=== PATIENT | male | born 1950 | race Caucasian/White ===

== ENCOUNTER → 2017-01-15 | Outpatient (CLI) | payer MEDICARE, OTHER | END | disposition home or self-care (01) | LOC: LABPAT 14:25 | PROVIDERS: ATTEND Orthopaedic Surgery | DX: Z01.812 Encounter for preprocedural laboratory examination (principal) | CPT/HCPCS: 87070 ==

== ENCOUNTER → 2018-11-03 | Outpatient (CLI) | payer MEDICARE, OTHER ==
[2018-11-03 13:20] LABS: Basophils % (A) 1 %; Eosinophils # (A) 0.3 k/uL (0-0.7); Eosinophils % (A) 6 %; HCT 43.5 % (39.0-53.0); HGB 14.3 gm/dL (13.0-17.5); Lymphocytes # (A) 0.8 k/uL (1.0-4.8); Lymphocytes % (A) 17 %; MCH 31.4 pg (25.0-35.0); MCHC 32.9 g/dL (31.0-37.0); MCV 95.5 fL (80.0-100.0); Mean Platelet Volume 7.9; Monocytes # (A) 0.4 k/uL (0-1.0); Monocytes % (A) 8 %; Neutrophils % (A) 66 %; Platelet Count 139 k/uL (150-450); RBC 4.55 m/uL (4.30-5.90); RDW 13.6 % (11.5-15.5); WBC 4.5 k/uL (3.8-10.6)
[2018-11-03 20:17] LABS: Albumin 4.7 g/dL (3.80-4.90); Albumin/Globulin Ratio 2.24 (1.60-3.17); Anion Gap 10.5 mmol/L (4.00-12.00); Calcium 9.8 mg/dL (8.7-10.3); Carbon Dioxide 29.5 mmol/L (21.6-31.8); Globulin 2.1 g/dL (1.6-3.3); Potassium 4.1 mmol/L (3.5-5.5); Total Bilirubin 0.6 mg/dL (0.2-1.2); Total Protein 6.8 g/dL (6.2-8.2)
== END | disposition home or self-care (01) ==
LOC: LABWHC1 12:21
PROVIDERS: ATTEND Radiology Radiation Oncology
DX: C61 Malignant neoplasm of prostate (principal); D63.0 Anemia in neoplastic disease; R53.82 Chronic fatigue, unspecified
CPT/HCPCS: 36415; 80053; 84153; 84403; 85025

== ENCOUNTER 2021-11-14 10:04 | Day surgery (SDC) | payer MEDICARE, OTHER ==
[2021-11-12 14:41] VITALS: BMI 32.3
[~2021-11-14 10:04] MED LIST: DEXAMETHASONE SOD PHOSPHATE 4 MG/ML 1 ML VIAL IV ONE; HYDROmorphone 1 MG/ML 1 ML SYRINGE IVP PRN; LACTATED RINGERS 1,000 ML IV SCH; ONDANSETRON 4 MG/2 ML VIAL IVP ONE
[2021-11-14 11:04] LABS: Glucose,Whole Blood 111 mg/dL (75-99)
--- NOTE | 2021-11-14 12:26 | XR ---
EXAMINATION TYPE: XR KUB DATE OF EXAM: 11/14/2021 COMPARISON: None available INDICATION: Preoperative TECHNIQUE: Standard 2 views of the abdomen FINDINGS: Suspected 12 mm right renal calculus. No obvious cleft radiopaque renal calculus. Renal shadows are o bscured by the overlying bowel gas and fecal material. Arterial atherosclerotic calcifications. Degen erative changes of the lumbar spine. IMPRESSION: As above.
--- NOTE | 2021-11-14 12:44 | P.HPIHPCON ---
History of Present Illness H&P Date: 11/14/21 Chief Complaint: right renal stone this is a 71-year-old male with history of a 1.2 cm right-sided UPJ stone. He is symptomatic from his stone. Discussed with him the option of a right-sided ureteroscopy with holmium laser. Discussed the alternative of ESWL. Discussed the risk and benefit of each procedure. He agreed to proceed with right-sided ureteroscopy. Discussed the risk which includes but not limited to bleeding, infection, injury to ureter, potential of needing additional operations. He understood all the risk and agreed to proceed Consent for Procedure: I have explained the operation/procedure to the patient, including the risks, benefits, side effects, alternative therapies (including not receiving the proposed treatment or service), the likelihood of the patient achieving his/her goals, and potential recuperation problems for the procedure/sedation/analgesia, as well as any blood products, if indicated. I also explained to the patient the risks, benefits and side effects of the alternatives, as well as the risks rel ated to not receiving the proposed procedure, care, treatment, or services. Past Medical History Past Medical History: Atrial Fibrillation, Cancer, Chest Pain / Angina, Diabetes Mellitus, Hyperlipidemia, Hypertension, Osteoarthritis (OA), Prostate Disorder Additional Past Medical History / Comment(s): kidney stones,bone spur right hip History of Any Multi-Drug Resistant Organisms: None Reported Past Surgical History: Orthopedic Surgery, Tonsillectomy Additional Past Surgical History / Comment(s): Carpal Tunnel Release, RT KNEE ARTHROSOCPY Past Anesthesia/Blood Transfusion Reactions: No Reported Reaction Additional Past Anesthesia/Blood Transfusion Reaction / Comment(s): no hx blood transfusion Smoking Status: Former smoker - Past Family History Mother Family Medical History: AFIB Additional Family Medical History / Comment(s): states that his mother from "gangrene of the stomach" Father Family Medical History: AICD/Pacemaker, Myocardial Infarction ([place]) Additional Family Medical History / Comment(s): pacer Brother(s) Family Medical History: AFIB Sister(s) Family Medical History: AFIB Medications and Allergies Home Medications Medication Instructions Recorded Confirmed Type Lovastatin [Mevacor] 40 mg PO HS 12/15/14 11/14/21 History lisinopriL [Prinivil] 30 mg PO QAM 12/15/14 11/14/21 History metFORMIN HCL [Glucophage] 500 mg PO BID 12/15/14 11/14/21 History Aspirin 81 mg PO DAILY 12/16/14 11/14/21 History Acetaminophen [Tylenol Extra 500 - 1,000 mg PO Q6H PRN 11/12/21 11/14/21 History Strength] Finasteride [Proscar] 5 mg PO QAM 11/12/21 11/14/21 History Metoprolol Tartrate [Lopressor] 25 mg PO BID 11/12/21 11/14/21 History Oxybutynin ER [Ditropan Xl] 10 mg PO HS 11/12/21 11/14/21 History Rivaroxaban [Xarelto] 20 mg PO DAILY 11/12/21 11/14/21 History Tamsulosin HCl [Flomax] 0.4 mg PO BID 11/12/21 11/14/21 History amLODIPine BESYLATE 5 mg PO QAM 11/12/21 11/14/21 History Allergies Allergy/AdvReac Type Severity Reaction Status Date / Time amoxicillin Allergy Unknown Verified 11/14/21 11:11 Childhood Surgical - Exam Vital Signs Temp Pulse Resp BP Pulse Ox 97.7 F 96 18 149/104 97 11/14/21 10:51 11/14/21 10:51 11/14/21 10:51 11/14/21 10:51 11/14/21 10:51 - General well nourished, no distress, moderate pain - Eyes normal ocular movement, no pale - Respiratory normal expansion, normal respiratory effort - Abdomen Abdomen: soft, non tender - Psychiatric oriented to time, oriented to person, oriented to place Results - Labs Abnormal Lab Results - Last 24 Hours (Table) 11/14/21 Range/Units 11:01 POC Glucose (mg/dL) 111 H (75-99) mg/dL Assessment and Plan Assessment: 71-year-old male with history of right-sided ureteral stone -OR for right-sided ureteroscopy, holmium laser lithotripsy, stone basketing and stent insertion
[2021-11-14] MEDS ORDERED: fentaNYL (PF) 50 MCG/ML 2 ML AMP ONE (13:45)
[2021-11-14] MEDS ORDERED: NEOSTIGMINE 1 MG/ML 10 ML VIAL ONE (13:45)
[2021-11-14] MEDS ORDERED: GLYCOPYRROLATE 0.2 MG/ML 2 ML VIAL ONE (13:45)
[2021-11-14] MEDS ORDERED: SUCCINYLCHOLINE CHLORIDE 100 MG/5 ML SYR IV ONE (13:45)
[2021-11-14] MEDS ORDERED: ROCURONIUM 10 MG/ML (5 ML VIAL) IV ONE (13:45)
[2021-11-14] MEDS ORDERED: LIDOCAINE 1% INJ 10MG/ML (20 ML MDV) ONE (13:45)
[2021-11-14] MEDS ORDERED: PROPOFOL 10 MG/ML 20 ML VIAL IV ONE (13:45)
[2021-11-14] MEDS ORDERED: MIDAZOLAM 2 MG/2 ML VIAL ONE (13:45)
[2021-11-14] MEDS ORDERED: IOPAMIDOL-370 50ML BTL IRRIGATION ONE (14:32)
--- NOTE | 2021-11-14 14:53 | P.OP ---
Date of Procedure: 11/14/21 Preoperative Diagnosis: Right ureteral stone Postoperative Diagnosis: Same Procedure(s) Performed: Cystoscopy, right ureteroscopy, ureteral balloon dilation and stent placement, Implants: 6-[place] Citizen by 26 cm stent Anesthesia: JOHNNY Surgeon: Vadim Peres Estimated Blood Loss (ml): 5 Pathology: none sent Condition: stable Disposition: PACU Indications for Procedure: this is a 71-year-old male with history of a 1.2 cm right-sided UPJ stone. He is symptomatic from his stone. Discussed with him the option of a right-sided ureteroscopy with holmium laser. Discussed the alternative of ESWL. Discussed the risk and benefit of each procedure. He agreed to proceed with right-sided ureteroscopy. Discussed the risk which includes but not limited to bleeding, infection, injury to ureter, potential of needing additional operations. He understood all the risk and agreed to proceed Operative Findings: Significant narrowing of the right proximal ureter Description of Procedure: Patient was brought to the operating room, general anesthesia was induced. He was prepped and draped in sterile fashion and placed in dorsal lithotomy position. Cystoscopy fitted with a 21-[place] Citizen sheath was inserted per urethra, cystoscopy was performed which showed no abnormality within the bladder. Attention was then carried to the right ureteral orifice which was intubated with a sensor wire. The wire was advanced into the kidney. Next the cystoscope was withdrawn with the wire in place. Next a 1113 [place] Citizen access sheath was passed over the wire and into the mid ureter, resistance was met at that level, thus the access sheath was not advanced any further. Next a flexible ureteroscope was inserted through the access sheath, at this point I encountered a stricture at the proximal ureter. The scope was withdrawn and a wire was advanced through. Next a ureteral balloon dilator was passed through the access sheath and the stricture was dilated. At this time I reinserted the scope and I advanced the scope past the stricture but a second stricture was encountered. I then removed the scope and readvanced the balloon dilator and dilated the second stricture. At this time the ureteroscope was reinserted and I was able to advance the scope past the second stricture but it appeared to be significant narrowing at the UPJ. Of note there appeared to be some mucosal tearing with dilation, but no evidence of ureteral perforation. Given this finding the decision was made at this time to place a stent. A ureteroscope was withdrawn and pullback ureteroscopy was performed showed no injury to the ureter. Next a ureteral stent was passed over the wire, the proximal curl was visualized on fluoroscopy and the distal curl was visualized using cystoscope. The bladder was emptied at the end of the case. The patient tolerated the procedure well taken to recovery in stable condition, he'll be scheduled for a ureteroscopy in 3-4 weeks
[2021-11-14 15:06] VITALS: TEMP 98.1
--- NOTE | 2021-11-14 15:37 | FL ---
Fluoroscopy HISTORY: Right ureteral calculus 20 seconds fluoroscopy time supplied to the referring clinician. 7 intraoperative C-arm images docum ent the procedure. See dictated report from urology.
[2021-11-14 16:04] VITALS: RESP 20
[2021-11-14 16:10] VITALS: BP 136/83; PULSE 92
== END 2021-11-14 16:32 | disposition home or self-care (01) ==
LOC: OR 10:04
PROVIDERS: ATTEND Urology
DX: N20.1 Calculus of ureter (principal)
CPT/HCPCS: 52332; 74018; C2625; C1769; J2250; J1100; J2710; J0690; J2405; J2001; J3010; J0330; J2704; Q9967

== ENCOUNTER → 2021-12-09 | Day surgery (SDC) | payer MEDICARE, OTHER ==
--- NOTE | 2021-12-02 12:53 | P.HPIHPCON ---
History of Present Illness H&P Date: 12/02/21 This is a 71-year-old male with history of a 1.2 cm right-sided renal stone. He underwent right-sided stent placement on November 14, at that time patient had a narrowed proximal ureter, and a stent was placed. Definitive stone management were discussed with him, option of ureteroscopy with holmium laser lithotripsy versus ESWL was discussed in detail. Risk and benefits and rationale of each approach were discussed. He agreed to proceed with right-sided ESWL. Discussed the risk which includes but not limited to bleeding, infection, renal hematoma, potential of needing additional operation. Discussed with him that the stent will stay in place at the time of surgery and we'll plan on removing in 1-2 weeks if no fragments are seen on KUB. Consent for Procedure: I have explained the operation/procedure to the patient, including the risks, benefits, side effects, alternative therapies (including not receiving the proposed treatment or service), the likelihood of the patient achieving his/her goals, and potential recuperation problems for the procedure/sedation/analgesia, as well as any blood products, if indicated. I also explained to the patient the risks, benefits and side effects of the alternatives, as well as the risks related to not receiving the proposed procedure, care, treatment, or services. Past Medical History Past Medical History: Atrial Fibrillation, Cancer, Chest Pain / Angina, Diabetes Mellitus, Hyperlipidemia, Hypertension, Osteoarthritis (OA), Prostate Disorder Additional Past Medical History / Comment(s): kidney stones,bone spur right hip History of Any Multi-Drug Resistant Organisms: None Reported Past Surgical History: Orthopedic Surgery, Tonsillectomy Additional Past Surgical History / Comment(s): Carpal Tunnel Release, RT KNEE ARTHROSOCPY Past Anesthesia/Blood Transfusion Reactions: No Reported Reaction Additional Past Anesthesia/Blood Transfusion Reaction / Comment(s): no hx blood transfusion Smoking Status: Former smoker - Past Family History Mother Family Medical History: AFIB Additional Family Medical History / Comment(s): states that his mother from "gangrene of the stomach" Father Family Medical History: AICD/Pacemaker, Myocardial Infarction ([place]) Additional Family Medical History / Comment(s): pacer Brother(s) Family Medical History: AFIB Sister(s) Family Medical History: AFIB Medications and Allergies Home Medications Medication Instructions Recorded Confirmed Type Lovastatin [Mevacor] 40 mg PO HS 12/15/14 11/14/21 History lisinopriL [Prinivil] 30 mg PO QAM 12/15/14 11/14/21 History metFORMIN HCL [Glucophage] 500 mg PO BID 12/15/14 11/14/21 History Aspirin 81 mg PO DAILY 12/16/14 11/14/21 History Acetaminophen [Tylenol Extra 500 - 1,000 mg PO Q6H PRN 11/12/21 11/14/21 History Strength] Finasteride [Proscar] 5 mg PO QAM 11/12/21 11/14/21 History Metoprolol Tartrate [Lopressor] 25 mg PO BID 11/12/21 11/14/21 History Oxybutynin ER [Ditropan Xl] 10 mg PO HS 11/12/21 11/14/21 History Rivaroxaban [Xarelto] 20 mg PO DAILY 11/12/21 11/14/21 History Tamsulosin HCl [Flomax] 0.4 mg PO BID 11/12/21 11/14/21 History amLODIPine BESYLATE 5 mg PO QAM 11/12/21 11/14/21 History Phenazopyridine HCl [Pyridium] 100 mg PO TID #10 tab 11/14/21 Rx Sulfamethox-Tmp 800-160Mg [Bactrim 1 tab PO Q12HR #6 tab 11/14/21 Rx DS 800-160 mg] Allergies Allergy/AdvReac Type Severity Reaction Status Date / Time amoxicillin Allergy Unknown Verified 11/14/21 11:11 Childhood Surgical - Exam - General no distress, no pain - ENT normal nares, normal mucosa - Respiratory normal expansion, normal respiratory effort - Abdomen Abdomen: soft, non tender Assessment and Plan Assessment: OR for right-sided ESWL
[2021-12-05 11:25] VITALS: BMI 29.5
[~2021-12-09] MED LIST changes: +HYDROmorphone 0.5 MG/0.5 ML SYRINGE IVP PRN; -HYDROmorphone 1 MG/ML 1 ML SYRINGE IVP PRN; +LIDOCAINE 1% (10MG/ML) FOR IV START INTRADERMA PRN; +MIDAZOLAM 2 MG/2 ML VIAL ONE; +PROPOFOL 10 MG/ML 20 ML VIAL IV ONE; +fentaNYL (PF) 50 MCG/ML 2 ML AMP ONE
[2021-12-09 07:24] VITALS: TEMP 97.2
--- NOTE | 2021-12-09 07:34 | XR ---
EXAMINATION TYPE: XR KUB DATE OF EXAM: 12/09/2021 Comparison: 11/14/2021 Clinical History: 71-year-old male preop right-sided lithotripsy, stones Findings: A right ureteral stent is in place. There is a 1.2 x 0.5 cm calcification projecting at the lower óscar e right kidney, probably corresponding to the previous calcification seen on 11/14/2021 but now more i nferiorly positioned. Brachytherapy seeds within the region of the prostate gland. Vascular and proba lucero vas deferens calcifications in the pelvis. Degenerative changes mid to lower lumbar spine. Nonobs tructive bowel gas pattern. Mild scattered stool. Impression: 1. Right ureteral stent. 2. The previous 1.2 cm right-sided stone may now be located at the lower pole of the kidney.
[2021-12-09 07:39] LABS: Glucose,Whole Blood 137 mg/dL (75-99)
--- NOTE | 2021-12-09 08:21 | P.OP ---
Date of Procedure: 12/09/21 Preoperative Diagnosis: Right renal stone Postoperative Diagnosis: Same Procedure(s) Performed: Extracorporeal shockwave lithotripsy 2500 shocks at energy level IV Anesthesia: MAC Surgeon: Toribio Sahni Pathology: none sent Condition: stable Disposition: PACU Indications for Procedure: Patient is 71. He has a 12 x 10 mm stone that was lodged at the UPJ. A stent was placed and the stone fell into the lower pole calyx. He comes for shockwave lithotripsy Description of Procedure: Patient brought to the operating suite. Given IV sedation on the lithotripsy table. The stone was seen in 2 views of fluoroscopy. 2500 shocks at energy level IV. The stone appears to have broken somewhat but not completely. Patient awake and returned recovery in good condition. The stent will remain in place. He'll be seen in the office in one week with a KUB. Patient awake and returned recovery in good condition tell her procedure well.
[2021-12-09 08:34] VITALS: RESP 16
[2021-12-09 09:13] VITALS: BP 112/68; PULSE 79
== END | disposition home or self-care (01) ==
LOC: ORWHC2ENDO 06:54
PROVIDERS: ATTEND Urology
DX: N20.0 Calculus of kidney (principal); I48.91 Unspecified atrial fibrillation; I20.9 Angina pectoris, unspecified; I10 Essential (primary) hypertension; E11.9 Type 2 diabetes mellitus without complications; E78.5 Hyperlipidemia, unspecified; M19.90 Unspecified osteoarthritis, unspecified site; N42.9 Disorder of prostate, unspecified; Z79.899 Other long term (current) drug therapy; Z79.84 Long term (current) use of oral hypoglycemic drugs; Z79.82 Long term (current) use of aspirin; Z88.0 Allergy status to penicillin; Z98.890 Other specified postprocedural states; Z90.89 Acquired absence of other organs; Z87.891 Personal history of nicotine dependence; Z82.49 Family history of ischemic heart disease and other diseases of the circulatory system
CPT/HCPCS: 74018; 50590; J2250; J3010; J2704

== ENCOUNTER → 2021-12-16 | Outpatient (CLI) | payer MEDICARE, OTHER ==
--- NOTE | 2021-12-16 17:59 | XR ---
EXAMINATION TYPE: XR KUB DATE OF EXAM: 12/16/2021 COMPARISON: X-ray dated 12/09/2021 INDICATION: Right renal stone TECHNIQUE: One supine view of the abdomen FINDINGS: Right-sided double-J ureteric stent. Stable right lower pole renal stone measuring 10 mm. Stable scat tered soft tissue and arterial calcifications in the pelvis. Severe degenerative changes of the lower thoracic and lower lumbar spine. IMPRESSION: As above.
== END | disposition home or self-care (01) ==
LOC: RADXRMAIN 11:06
PROVIDERS: ATTEND Urology
DX: N20.0 Calculus of kidney (principal)
CPT/HCPCS: 74018

== ENCOUNTER → 2022-01-02 | Outpatient (CLI) | payer MEDICARE, OTHER ==
[2022-01-02 17:35] LABS: Basophils # (A) 0.07 X 10*3/uL (0.00-0.10); Basophils % (A) 0.9 %; Eosinophils # (A) 0.34 X 10*3/uL (0.04-0.35); Eosinophils % (A) 4.5 %; HCT 39.3 % (39.6-50.0); HGB 12.3 g/dL (13.0-17.0); Immature Grans, Automated 0.5 %; Lymphocytes # (A) 1.51 X 10*3/uL (0.90-5.00); Lymphocytes % (A) 19.8 %; MCH 29.6 pg (27.0-32.0); MCHC 31.3 g/dL (32.0-37.0); MCV 94.5 fL (80.0-97.0); Mean Platelet Volume 11.2 fL (9.5-12.2); Monocytes # (A) 0.78 X 10*3/uL (0.20-1.00); Monocytes % (A) 10.2 %; NRBC Per 100 WBC 0 /100 WBCS (0.0-0.0); Neutrophils % (A) 64.1 %; Platelet Count 175 X 10*3/uL (140-440); RBC 4.16 X 10*6/uL (4.40-5.60); RDW 13.3 % (11.5-14.5); WBC 7.64 X 10*3/uL (4.50-10.00)
[2022-01-02 19:15] LABS: African American GFR (CKD) 98.5 (60.0-200.0); Anion Gap 11.3 mmol/L (10.00-18.00); BUN/Creat Ratio 12.78 Ratio (12.00-20.00); Blood Urea Nitrogen 11.5 mg/dL (9.0-27.0); Calcium 9.7 mg/dL (8.7-10.3); Carbon Dioxide 27.7 mmol/L (20.0-27.5); Potassium 4.1 mmol/L (3.5-5.5)
[2022-01-02 20:05] LABS: Appearance,Urine Cloudy (Clear); Bilirubin,Urine Negative (Negative); Blood,Urine Large (Negative); Color,Urine Yellow (Yellow); Ketones,Urine Negative (Negative); Nitrite,Urine Negative (Negative); PH, Urine 5.5 (5.0-8.0); Specific Gravity,Urine 1.019 (1.001-1.030); Urobilinogen,Urine 0.2 (0.2,1.0)
[2022-01-02 21:40] LABS: Bacteria,Urine None Seen /HPF (None Seen); Calcium Oxalate Crystals,Urine Present /LPF (None Seen)
== END | disposition home or self-care (01) ==
LOC: LABPAT 11:01
PROVIDERS: ATTEND Urology
DX: Z01.812 Encounter for preprocedural laboratory examination (principal); N20.0 Calculus of kidney
CPT/HCPCS: 36415; 80048; 81001; 85025; 87086

== ENCOUNTER 2022-01-10 09:58 | Day surgery (SDC) | payer MEDICARE, OTHER ==
--- NOTE | 2022-01-06 10:49 | P.HPIHPCON ---
History of Present Illness H&P Date: 01/06/22 This is a 71-year-old male with history of a 1.2 cm right-sided renal stone. Underwent a right-sided ESWL in November, repeat KUB showed persistent stone. Option of right-sided ureteroscopy with holmium laser was discussed with him given the persistent stone following ESWL. Discussed the risk which includes but not limited to bleeding, infection, injury to ureter. Discussed also potential persistence of stone with ureteroscopy. Discussed also risk from anesthesia with him. Consent for Procedure: I have explained the operation/procedure to the patient, including the risks, benefits, side effects, alternative therapies (including not receiving the proposed treatment or service), the likelihood of the patient achieving his/her goals, and potential recuperation problems for the procedure/sedation/analgesia, as well as any blood products, if indicated. I also explained to the patient the risks, benefits and side effects of the alternatives, as well as the risks related to not receiving the proposed procedure, care, treatment, or services. Past Medical History Past Medical History: Atrial Fibrillation, Cancer, Chest Pain / Angina, Diabetes Mellitus, Hyperlipidemia, Hypertension, Osteoarthritis (OA), Prostate Disorder Additional Past Medical History / Comment(s): kidney stones,bone spur right hip History of Any Multi-Drug Resistant Organisms: None Reported Past Surgical History: Orthopedic Surgery, Tonsillectomy Additional Past Surgical History / Comment(s): Carpal Tunnel Release, RT KNEE ARTHROSOCPY Past Anesthesia/Blood Transfusion Reactions: No Reported Reaction Additional Past Anesthesia/Blood Transfusion Reaction / Comment(s): no hx blood transfusion Smoking Status: Former smoker - Past Family History Mother Family Medical History: AFIB Additional Family Medical History / Comment(s): states that his mother from "gangrene of the stomach" Father Family Medical History: AICD/Pacemaker, Myocardial Infarction ([place]) Additional Family Medical History / Comment(s): pacer Brother(s) Family Medical History: AFIB Sister(s) Family Medical History: AFIB Medications and Allergies Home Medications Medication Instructions Recorded Confirmed Type Lovastatin [Mevacor] 40 mg PO HS 12/15/14 12/05/21 History lisinopriL [Prinivil] 30 mg PO Q48H 12/15/14 12/05/21 History metFORMIN HCL [Glucophage] 500 mg PO BID 12/15/14 12/05/21 History Aspirin 81 mg PO DAILY 12/16/14 12/05/21 History Acetaminophen [Tylenol Extra 500 - 1,000 mg PO Q6H PRN 11/12/21 12/05/21 History Strength] Finasteride [Proscar] 5 mg PO QAM 11/12/21 12/05/21 History Metoprolol Tartrate [Lopressor] 50 mg PO BID 11/12/21 12/05/21 History Oxybutynin ER [Ditropan Xl] 10 mg PO HS 11/12/21 12/05/21 History Rivaroxaban [Xarelto] 20 mg PO DAILY 11/12/21 12/05/21 History Tamsulosin HCl [Flomax] 0.4 mg PO BID 11/12/21 12/05/21 History amLODIPine BESYLATE 5 mg PO QAM 11/12/21 12/05/21 History Cephalexin [Keflex] 500 mg PO Q8HR 12/05/21 12/05/21 History lisinopriL [Zestril] 20 mg PO Q48H 12/05/21 12/05/21 History Ketorolac [Toradol] 10 mg PO Q6HR PRN #15 tab 12/09/21 Rx Allergies Allergy/AdvReac Type Severity Reaction Status Date / Time amoxicillin Allergy Unknown Verified 12/09/21 07:25 Childhood Surgical - Exam - General no distress, no pain - Eyes normal ocular movement, no pale - ENT normal nares, normal mucosa - Respiratory normal expansion, normal respiratory effort - Abdomen Abdomen: soft, non tender Assessment and Plan Assessment: OR right-sided ureteroscopy with holmium laser lithotripsy, stone basketing and stent removal
[2022-01-08 14:44] VITALS: BMI 28.8
[~2022-01-10 09:58] MED LIST changes: -LIDOCAINE 1% (10MG/ML) FOR IV START INTRADERMA PRN; -MIDAZOLAM 2 MG/2 ML VIAL ONE; -PROPOFOL 10 MG/ML 20 ML VIAL IV ONE; -fentaNYL (PF) 50 MCG/ML 2 ML AMP ONE
--- NOTE | 2022-01-10 10:19 | XR ---
KUB HISTORY: N 20.0, right kidney stone Frontal KUB correlated prior KUB 12/16/2021 Double-J stent is present on the right. There is a crescentic calcification superimposed over the low er pole the right kidney measuring approximately 12 mm. Multiple calcifications are again noted withi n the pelvis, prostate seeds are suspected. There is a spinal curvature, degenerative disc change in the visualized spine. IMPRESSION: Stable findings. Right-sided nephrolithiasis.
[2022-01-10 11:51] VITALS: TEMP 97.3
[2022-01-10 12:06] LABS: Glucose,Whole Blood 106 mg/dL (75-99)
[2022-01-10] MEDS ORDERED: fentaNYL (PF) 50 MCG/ML 2 ML AMP ONE (13:44)
[2022-01-10] MEDS ORDERED: PROPOFOL 10 MG/ML 20 ML VIAL IV ONE (13:44)
[2022-01-10] MEDS ORDERED: GLYCOPYRROLATE 0.2 MG/ML 2 ML VIAL ONE (13:44)
[2022-01-10] MEDS ORDERED: NEOSTIGMINE 1 MG/ML 10 ML VIAL ONE (13:44)
[2022-01-10] MEDS ORDERED: SUCCINYLCHOLINE CHLORIDE VIAL 200 MG/10 ML VIAL IV ONE (13:44)
[2022-01-10] MEDS ORDERED: MIDAZOLAM 2 MG/2 ML VIAL ONE (13:44)
[2022-01-10] MEDS ORDERED: ROCURONIUM 10 MG/ML (5 ML VIAL) IV ONE (13:44)
--- NOTE | 2022-01-10 15:19 | P.OP ---
Date of Procedure: 01/10/22 Preoperative Diagnosis: Right renal stone Postoperative Diagnosis: Same Procedure(s) Performed: Right ureteroscopy, holmium laser lithotripsy, stone basketing and stent exchange Implants: 6-[place] by 26 cm stent left on a string in the right ureter Anesthesia: JOHNNY Surgeon: Vadim Peres Estimated Blood Loss (ml): 5 Pathology: other (Right renal stone) Condition: stable Disposition: PACU Indications for Procedure: This is a 71-year-old male with history of a 1.2 cm right-sided renal stone. Underwent a right-sided ESWL in November, repeat KUB showed persistent stone. Option of right-sided ureteroscopy with holmium laser was discussed with him given the persistent stone following ESWL. Discussed the risk which includes but not limited to bleeding, infection, injury to ureter. Discussed also potential persistence of stone with ureteroscopy. Discussed also risk from anesthesia with him. Description of Procedure: Patient brought to the operating room, general anesthesia was induced. He was prepped and draped in sterile fashion a placement dorsal lithotomy position. A cystoscopy fitted with a 21-[place] sheath was inserted per urethra, cystoscopy was performed which showed no abnormality within the bladder. Next a ureteral stent was grasped and removed to the meatus. Next a sensor wire was advanced through the stent. Next a semirigid ureteroscope was inserted per urethra and advanced up the right ureteral orifice, stones were encountered in the distal ureter which were removed using the stone basket. Next the scope was advanced all the way to the proximal ureter which showed no additional stones ureter. Pullback ureteroscopy was performed which showed edema at the distal ureter but otherwise no abnormality within the course of the ureter. Next a 1214 [place] access sheath was passed over the wire and into the proximal ureter. Next flexibile ureteroscope was inserted through the access sheath, renoscopy was performed showed multiple stone within the lower pole of the kidney. Using the holmium laser the stone was dusted. Sizable fragments were removed and sent for analysis. Repeat renoscopy showed no sizable fragments or injury to the kidney. Pullback ureteroscopy was performed showed no injury to the ureter and no ureteral fragments. There was edema at the distal ureter. As the ureteroscope was withdrawn and a sensor wire was advanced through. Next ureteral stent was passed over the wire, the proximal curl was visualized on fluoroscopy and the distal curl was visualized using the cystoscope. The stent was left on a string and taped the patient penis. The bladder was emptied at the end of the case. Patient tolerated procedure well was taken to recovery in stable condition BENJAMIN MULLINS Report: Procedure Acuity: Elective Stone Size and Location: right lower pole, distal right ureter Ureteral Dilation: No Ureteral Access Sheath Used: Yes Stone Sent for Analysis: Yes All Stones/Fragments Were Removed with a Basket: Yes Complications: No Preoperative Antibiotics Given: Yes Stent Placed: Yes If Stent Placed, Was String Left Attached: Yes If Stent Placed, When is it to be Removed: one week Discharge Medications: Ditropan, Ultram, Cipro
[2022-01-10 15:47] VITALS: RESP 16
[2022-01-10 16:32] VITALS: BP 134/77; PULSE 85
--- NOTE | 2022-01-10 16:50 | FL ---
Fluoroscopy HISTORY: Cystoscopy with lithotripsy 29 seconds fluoroscopy time supplied to the referring clinician. 3 intraoperative C-arm images docum ent the procedure. See dictated report from urology.
== END 2022-01-10 16:48 | disposition home or self-care (01) ==
LOC: OR 09:58
PROVIDERS: ATTEND Urology
DX: N20.0 Calculus of kidney (principal); I48.91 Unspecified atrial fibrillation; E11.9 Type 2 diabetes mellitus without complications; E78.5 Hyperlipidemia, unspecified; I10 Essential (primary) hypertension; I20.9 Angina pectoris, unspecified; M19.90 Unspecified osteoarthritis, unspecified site; Z85.9 Personal history of malignant neoplasm, unspecified; N42.9 Disorder of prostate, unspecified; Z98.890 Other specified postprocedural states; Z82.49 Family history of ischemic heart disease and other diseases of the circulatory system; Z97.2 Presence of dental prosthetic device (complete) (partial); Z79.01 Long term (current) use of anticoagulants; Z79.84 Long term (current) use of oral hypoglycemic drugs; Z79.82 Long term (current) use of aspirin; Z79.899 Other long term (current) drug therapy; Z88.0 Allergy status to penicillin
CPT/HCPCS: 82365; 74018; 52356; C1894; C1769; J2250; J0330; J2710; J0690; J3010; J2704

== ENCOUNTER 2022-01-31 16:49 | Inpatient (IN) | payer MEDICARE, OTHER ==
[2022-01-31] MEDS ORDERED: ACETAMINOPHEN TAB 500 MG TAB PO STA (16:57)
[2022-01-31 17:22] LABS: Basophils # (A) 0.1 k/uL (0-0.2); Basophils % (A) 1 %; Eosinophils # (A) 0.1 k/uL (0-0.7); Eosinophils % (A) 1 %; HCT 40.1 % (39.0-53.0); HGB 13.1 gm/dL (13.0-17.5); Lymphocytes # (A) 0.6 k/uL (1.0-4.8); Lymphocytes % (A) 5 %; MCH 30.5 pg (25.0-35.0); MCHC 32.8 g/dL (31.0-37.0); MCV 93.1 fL (80.0-100.0); Mean Platelet Volume 8.9; Monocytes % (A) 8 %; Neutrophils # (A) 10.9 k/uL (1.3-7.7); Neutrophils % (A) 84 %; Platelet Count 124 k/uL (150-450); RBC 4.31 m/uL (4.30-5.90); RDW 13.3 % (11.5-15.5); WBC 13.1 k/uL (3.8-10.6)
--- NOTE | 2022-01-31 17:31 | XR ---
EXAMINATION TYPE: XR chest 2V DATE OF EXAM: 01/31/2022 COMPARISON: 12/15/2014 HISTORY: Short of breath fever TECHNIQUE: 2 views FINDINGS: Heart and mediastinum are normal. Lungs are clear. Diaphragm is normal. Bony thorax is inta ct. IMPRESSION: Oval chest. No change.
--- NOTE | 2022-01-31 17:37 | ED ---
Weakness HPI - General Chief complaint: Weakness Stated complaint: Weakness Time Seen by Provider: 01/31/22 16:55 Source: patient, EMS Mode of arrival: EMS - History of Present Illness Initial comments: 71-year-old male with past medical history of A. fib on xarelto, nephrolithiasis who presents to the emergency department with weakness. Patient had a stent removed on Thursday by Dr. Peres. Over the course of the week he has become more weak and tired. He has not been taking his medications as directed. He has not had an appetite. Poor oral intake. He denies any chest pain or shortness of breath. Does admit to a nonproductive cough. No sick contacts with similar sy mptoms. Denies any abdominal pain. No changes in his urination or bowel habits. No other source of infection. Denies rashes. No other alleviating, precipitating or modifying factors - Related Data Home Medications Medication Instructions Recorded Confirmed Lovastatin [Mevacor] 40 mg PO HS 12/15/14 01/31/22 Aspirin 81 mg PO DAILY 12/16/14 01/31/22 Finasteride [Proscar] 5 mg PO DAILY 11/12/21 01/31/22 Metoprolol Tartrate [Lopressor] 25 mg PO BID 11/12/21 01/31/22 Oxybutynin ER [Ditropan Xl] 10 mg PO DAILY 11/12/21 01/31/22 Rivaroxaban [Xarelto] 20 mg PO DIRECTED 11/12/21 01/31/22 Tamsulosin HCl [Flomax] 0.4 mg PO DAILY 11/12/21 01/31/22 amLODIPine BESYLATE 5 mg PO DAILY 11/12/21 01/31/22 lisinopriL [Zestril] 30 mg PO DAILY 12/05/21 01/31/22 metFORMIN HCL ER [Glucophage XR] 500 mg PO BID 01/31/22 01/31/22 Allergies Allergy/AdvReac Type Severity Reaction Status Date / Time amoxicillin Allergy Unknown Verified 01/10/22 11:36 Childhood Review of Systems ROS Statement: Those systems with pertinent positive or pertinent negative responses have been documented in the HPI. ROS Other: All systems not noted in ROS Statement are negative. Past Medical History Past Medical History: Atrial Fibrillation, Cancer, Chest Pain / Angina, Diabetes Mellitus, Hyperlipidemia, Hypertension, Osteoarthritis (OA), Prostate Disorder Additional Past Medical History / Comment(s): kidney stones,bone spur right hip History of Any Multi-Drug Resistant Organisms: None Reported Past Surgical History: Orthopedic Surgery, Tonsillectomy Additional Past Surgical History / Comment(s): Carpal Tunnel Release, RT KNEE ARTHROSOCPY Past Anesthesia/Blood Transfusion Reactions: No Reported Reaction Additional Past Anesthesia/Blood Transfusion Reaction / Comment(s): no hx blood transfusion Past Psychological History: No Psychological Hx Reported Smoking Status: Former smoker - Past Family History Mother Family Medical History: AFIB Additional Family Medical History / Comment(s): states that his mother from "gangrene of the stomach" Father Family Medical History: AICD/Pacemaker, Myocardial Infarction ([place]) Additional Family Medical History / Comment(s): pacer Brother(s) Family Medical History: AFIB Sister(s) Family Medical History: AFIB General Exam General appearance: alert, in no apparent distress Head exam: Present: atraumatic, normocephalic, normal inspection Eye exam: Present: normal appearance, PERRL, EOMI. Absent: scleral icterus, conjunctival injection, periorbital swelling ENT exam: Present: normal exam, mucous membranes moist Neck exam: Present: normal inspection. Absent: tenderness, meningismus, lymphadenopathy Respiratory exam: Present: normal lung sounds bilaterally. Absent: respiratory distress, wheezes, rales, rhonchi, stridor Cardiovascular Exam: Present: tachycardia, irregular rhythm, normal heart sounds. Absent: systolic murmur, diastolic murmur, rubs, gallop, clicks GI/Abdominal exam: Present: soft, normal bowel sounds. Absent: distended, ten derness, guarding, rebound, rigid Extremities exam: Present: normal inspection, full ROM, normal capillary refill. Absent: tenderness, pedal edema, joint swelling, calf tenderness Back exam: Present: normal inspection Neurological exam: Present: alert, oriented X3, CN II-XII intact Psychiatric exam: Present: normal affect, normal mood Skin exam: Present: warm, dry, intact, normal color. Absent: rash Course Vital Signs 01/31/22 01/31/22 01/31/22 16:51 17:48 19:50 Temperature 102.9 F H Pulse Rate 125 H 129 H 129 H Respiratory 20 18 18 Rate Blood Pressure 143/89 127/85 126/98 O2 Sat by Pulse 97 94 L 96 Oximetry 01/31/22 01/31/22 19:51 21:43 Temperature 100.5 F H 98.4 F Pulse Rate 110 H Respiratory 17 Rate Blood Pressure 121/78 O2 Sat by Pulse 98 Oximetry - Reevaluation(s) Reevaluation #1: 01/31/22 19:57 Source of the infection finally identified at 1954 as the urine EKG Findings - EKG Comments: EKG Findings:: EKG demonstrates A. fib with a rate of 117. QRS 97. QTC of 371. No acute ST segment elevations or depressions Medical Decision Making - Medical Decision Making Upon arrival patient is placed into room 9. A thorough history and physical exam was performed. IV access is established and laboratory studies are conducted. Patient was given a gram of Tylenol and started on 130 mL per hour. Laboratory studies are reviewed and demonstrated with blood cell count of 13.1. Creatinine is elevated at 1.29. Lactic is 2.5. Urine does demonstrate graded him 182 white blood cells and few white blood cell clumps. Covid and influenza are negative. Chest x-ray demonstrates no acute process. Source of infection is identified as a urinary tract infection which the patient finally provides at 1956. He is started on Rocephin. Recommended admission for sepsis for which the patient did agree to. He has a history of A. fib and is given 5 mg of Lopressor for which she does have improvement in his heart rate. We will start the patient back on his home medications. Spoke with Dr. Mullen who agreed to admit the patient. Patient awaiting a bed on the floor in stable condition - Lab Data Result diagrams: 02/01/22 07:56 02/01/22 07:56 Lab Results 01/31/22 01/31/22 01/31/22 Range/Units 17:07 17:07 17:07 WBC 13.1 H (3.8-10.6) k/uL RBC 4.31 (4.30-5.90) m/uL Hgb 13.1 (13.0-17.5) gm/dL Hct 40.1 (39.0-53.0) % MCV 93.1 (80.0-100.0) fL MCH 30.5 (25.0-35.0) pg MCHC 32.8 (31.0-37.0) g/dL RDW 13.3 (11.5-15.5) % Plt Count 124 L (150-450) k/uL MPV 8.9 Neutrophils % 84 % Lymphocytes % 5 % Monocytes % 8 % Eosinophils % 1 % Basophils % 1 % Neutrophils # 10.9 H (1.3-7.7) k/uL Lymphocytes # 0.6 L (1.0-4.8) k/uL Monocytes # 1.0 (0-1.0) k/uL Eosinophils # 0.1 (0-0.7) k/uL Basophils # 0.1 (0-0.2) k/uL PT 11.5 (9.0-12.0) sec INR 1.1 (<1.2) APTT 18.8 L (22.0-30.0) sec Sodium (137-145) mmol/L Potassium (3.5-5.1) mmol/L Chloride (98-107) mmol/L Carbon Dioxide (22-30) mmol/L Anion Gap mmol/L BUN (9-20) mg/dL Creatinine (0.66-1.25) mg/dL Est GFR (CKD-EPI)AfAm (>60 ml/min/1.73 sqM) Est GFR (CKD-EPI)NonAf (>60 ml/min/1.73 sqM) Glucose (74-99) mg/dL Lactic Ac Sepsis Rflx Plasma Lactic Acid Jv (0.7-2.0) mmol/L Calcium (8.4-10.2) mg/dL Total Bilirubin (0.2-1.3) mg/dL AST (17-59) U/L ALT (4-49) U/L Alkaline Phosphatase (38-126) U/L Troponin I (0.000-0.034) ng/mL Total Protein (6.3-8.2) g/dL Albumin (3.5-5.0) g/dL Urine Color Yellow Urine Appearance Cloudy (Clear) Urine pH 5.5 (5.0-8.0) Ur Specific Elsie 1.030 (1.001-1.035) Urine Protein 2+ H (Negative) Urine Glucose (UA) Negative (Negative) Urine Ketones Negative (Negative) Urine Blood Moderate H (Negative) Urine Nitrite Negative (Negative) Urine Bilirubin Negative (Negative) Urine Urobilinogen 2.0 (<2.0) mg/dL Ur Leukocyte Esterase Large H (Negative) Urine RBC 11 H (0-5) /hpf Urine WBC >182 H (0-5) /hpf Urine WBC Clumps Few H (None) /hpf Hyaline Casts 12 H (0-2) /lpf Urine Mucus Few H (None) /hpf Coronavirus (PCR) (Not Detectd) Influenza Type A RNA (Not Detectd) Influenza Type B (PCR) (Not Detectd) 01/31/22 01/31/22 01/31/22 Range/Units 17:07 17:07 17:07 WBC (3.8-10.6) k/uL RBC (4.30-5.90) m/uL Hgb (13.0-17.5) gm/dL Hct (39.0-53.0) % MCV (80.0-100.0) fL MCH (25.0-35.0) pg MCHC (31.0-37.0) g/dL RDW (11.5-15.5) % Plt Count (150-450) k/uL MPV Neutrophils % % Lymphocytes % % Monocytes % % Eosinophils % % Basophils % % Neutrophils # (1.3-7.7) k/uL Lymphocytes # (1.0-4.8) k/uL Monocytes # (0-1.0) k/uL Eosinophils # (0-0.7) k/uL Basophils # (0-0.2) k/uL PT (9.0-12.0) sec INR (<1.2) APTT (22.0-30.0) sec Sodium 138 (137-145) mmol/L Potassium 3.9 (3.5-5.1) mmol/L Chloride 100 (98-107) mmol/L Carbon Dioxide 27 (22-30) mmol/L Anion Gap 11 mmol/L BUN 27 H (9-20) mg/dL Creatinine 1.29 H (0.66-1.25) mg/dL Est GFR (CKD-EPI)AfAm 64 (>60 ml/min/1.73 sqM) Est GFR (CKD-EPI)NonAf 55 (>60 ml/min/1.73 sqM) Glucose 149 H (74-99) mg/dL Lactic Ac Sepsis Rflx Plasma Lactic Acid Jv 2.5 H* (0.7-2.0) mmol/L Calcium 8.8 (8.4-10.2) mg/dL Total Bilirubin 1.3 (0.2-1.3) mg/dL AST 68 H (17-59) U/L ALT 29 (4-49) U/L Alkaline Phosphatase 41 (38-126) U/L Troponin I (0.000-0.034) ng/mL Total Protein 6.9 (6.3-8.2) g/dL Albumin 4.1 (3.5-5.0) g/dL Urine Color Urine Appearance (Clear) Urine pH (5.0-8.0) Ur Specific Elsie (1.001-1.035) Urine Protein (Negative) Urine Glucose (UA) (Negative) Urine Ketones (Negative) Urine Blood (Negative) Urine Nitrite (Negative) Urine Bilirubin (Negative) Urine Urobilinogen (<2.0) mg/dL Ur Leukocyte Esterase (Negative) Urine RBC (0-5) /hpf Urine WBC (0-5) /hpf Urine WBC Clumps (None) /hpf Hyaline Casts (0-2) /lpf Urine Mucus (None) /hpf Coronavirus (PCR) (Not Detectd) Influenza Type A RNA Not Detected (Not Detectd) Influenza Type B (PCR) Not Detected (Not Detectd) 01/31/22 01/31/22 01/31/22 Range/Units 17:07 17:07 17:42 WBC (3.8-10.6) k/uL RBC (4.30-5.90) m/uL Hgb (13.0-17.5) gm/dL Hct (39.0-53.0) % MCV (80.0-100.0) fL MCH (25.0-35.0) pg MCHC (31.0-37.0) g/dL RDW (11.5-15.5) % Plt Count (150-450) k/uL MPV Neutrophils % % Lymphocytes % % Monocytes % % Eosinophils % % Basophils % % Neutrophils # (1.3-7.7) k/uL Lymphocytes # (1.0-4.8) k/uL Monocytes # (0-1.0) k/uL Eosinophils # (0-0.7) k/uL Basophils # (0-0.2) k/uL PT (9.0-12.0) sec INR (<1.2) APTT (22.0-30.0) sec Sodium (137-145) mmol/L Potassium (3.5-5.1) mmol/L Chloride (98-107) mmol/L Carbon Dioxide (22-30) mmol/L Anion Gap mmol/L BUN (9-20) mg/dL Creatinine (0.66-1.25) mg/dL Est GFR (CKD-EPI)AfAm (>60 ml/min/1.73 sqM) Est GFR (CKD-EPI)NonAf (>60 ml/min/1.73 sqM) Glucose (74-99) mg/dL Lactic Ac Sepsis Rflx Y Plasma Lactic Acid Jv (0.7-2.0) mmol/L Calcium (8.4-10.2) mg/dL Total Bilirubin (0.2-1.3) mg/dL AST (17-59) U/L ALT (4-49) U/L Alkaline Phosphatase (38-126) U/L Troponin I 0.021 (0.000-0.034) ng/mL Total Protein (6.3-8.2) g/dL Albumin (3.5-5.0) g/dL Urine Color Urine Appearance (Clear) Urine pH (5.0-8.0) Ur Specific Elsie (1.001-1.035) Urine Protein (Negative) Urine Glucose (UA) (Negative) Urine Ketones (Negative) Urine Blood (Negative) Urine Nitrite (Negative) Urine Bilirubin (Negative) Urine Urobilinogen (<2.0) mg/dL Ur Leukocyte Esterase (Negative) Urine RBC (0-5) /hpf Urine WBC (0-5) /hpf Urine WBC Clumps (None) /hpf Hyaline Casts (0-2) /lpf Urine Mucus (None) /hpf Coronavirus (PCR) Not Detected (Not Detectd) Influenza Type A RNA (Not Detectd) Influenza Type B (PCR) (Not Detectd) Disposition Clinical Impression: Sepsis, UTI (urinary tract infection), Atrial fibrillation with RVR, Pyrexia Disposition: ADMITTED IP TO THIS HOSP Condition: Stable Is patient prescribed a controlled substance at d/c from ED?: No Decision to Admit Reason: Admit from EC Decision Date: 01/31/22 Decision Time: 20:27
[2022-01-31 17:38] LABS: Albumin 4.1 g/dL (3.5-5.0); Calcium 8.8 mg/dL (8.4-10.2); Total Bilirubin 1.3 mg/dL (0.2-1.3); Total Protein 6.9 g/dL (6.3-8.2)
[2022-01-31 17:41] LABS: Potassium 3.9 mmol/L (3.5-5.1)
[2022-01-31] MEDS: SODIUM CHLORIDE 0.9% 1,000 ML IV SCH (17:45)
[2022-01-31 17:48] LABS: INR 1.1 (<1.2); Prothrombin Time 11.5 sec (9.0-12.0)
[2022-01-31 17:59] LABS: Partial Thromboplastin Time 18.8 sec (22.0-30.0)
[2022-01-31] MEDS ORDERED: KETOROLAC 15 MG/ML 1 ML VIAL IVP STA (19:25)
[2022-01-31 19:55] LABS: Appearance,Urine Cloudy (Clear); Bilirubin,Urine Negative (Negative); Blood,Urine Moderate (Negative); Color,Urine Yellow; Glucose,Urine (UA) Negative (Negative); Hyaline Casts,Urine 12 /lpf (0-2); Ketones,Urine Negative (Negative); Leukocyte Esterase,Urine Large (Negative); Mucus,Urine Few /hpf; Nitrite,Urine Negative (Negative); PH, Urine 5.5 (5.0-8.0); Protein,Urine 2+ (Negative); RBC,Urine 11 /hpf (0-5); WBC,Urine >182 /hpf (0-5)
[2022-01-31] MEDS ORDERED: cefTRIAXone IN SWFI 1,000 MG/10 ML SYRINGE IVP STA (19:59)
[2022-01-31] MEDS ORDERED: METOPROLOL TARTRATE 5 MG/5 ML VIAL IVP STA (20:26)
[2022-01-31] MEDS ORDERED: IBUPROFEN 400 MG TAB PO PRN (20:27)
[2022-01-31] MEDS ORDERED: NALOXONE 0.4 MG/ML 1 ML VIAL IV PRN (20:27)
[2022-01-31] MEDS: RIVAROXABAN 20 MG TAB PO SCH (23:09)
[2022-01-31] MEDS: ATORVASTATIN 10 MG TAB PO SCH (23:09)
--- NOTE | 2022-02-01 01:19 | P.HPIM ---
History of Present Illness H&P Date: 01/31/22 Chief Complaint: Generalized weakness and fatigue 71-year-old male with A. fib on blood thinners, diabetes mellitus, hypertension, Patient comes in due to feeling progressive generalized weakness and fatigue. He reports recently being diagnosed with right-sided kidney stones for which she had stents inserted and then stents were removed 4 days ago on Thursday since then he's been deteriorating feeling weak and tired chills lower back pain on the right side and doing much around the home he had decreased appetite he admits that she's been skipping on medications to decided to come in today for evaluation patient also reports hematuria off and on since he had stents in serted he also reports nonproductive cough denies any sore throat nausea vomiting chest pain or trouble breathing denies any GI bleeding Initial workup in the ED showed the patient is severe sepsis , With this suspected primary source to be his urinary tract. Patient reports off and on hematuria and dysuria for about a month now along with right flank discomfort Patient initiated on Rocephin and admitted for further care Review of Systems Pertinent positives as noted in HPI. All other systems were reviewed and are negative Past Medical History Past Medical History: Atrial Fibrillation, Cancer, Chest Pain / Angina, Diabetes Mellitus, Hyperlipidemia, Hypertension, Osteoarthritis (OA), Prostate Disorder Additional Past Medical History / Comment(s): kidney stones,bone spur right hip History of Any Multi-Drug Resistant Organisms: None Reported Past Surgical History: Orthopedic Surgery, Tonsillectomy Additional Past Surgical History / Comment(s): Carpal Tunnel Release, RT KNEE ARTHROSOCPY Past Anesthesia/Blood Transfusion Reactions: No Reported Reaction Additional Past Anesthesia/Blood Transfusion Reaction / Comment(s): no hx blood transfusion Past Psychological History: No Psychological Hx Reported Smoking Status: Former smoker Past Alcohol Use History: Occasional Additional Past Alcohol Use History / Comment(s): STARTED SMOKING AT AGE 13- SMOKED 1 PPD QUIT 40 YEARS AGO THEN STARTED TO CHEW-quit chewing tobacco 2018 approx Past Drug Use History: None Reported - Past Family History Mother Family Medical History: AFIB Additional Family Medical History / Comment(s): states that his mother from "gangrene of the stomach" Father Family Medical History: AICD/Pacemaker, Myocardial Infarction ([place]) Additional Family Medical History / Comment(s): pacer Brother(s) Family Medical History: AFIB Sister(s) Family Medical History: AFIB Medications and Allergies Home Medications Medication Instructions Recorded Confirmed Type Lovastatin [Mevacor] 40 mg PO HS 12/15/14 01/31/22 History Aspirin 81 mg PO DAILY 12/16/14 01/31/22 History Finasteride [Proscar] 5 mg PO DAILY 11/12/21 01/31/22 History Metoprolol Tartrate [Lopressor] 25 mg PO BID 11/12/21 01/31/22 History Oxybutynin ER [Ditropan Xl] 10 mg PO DAILY 11/12/21 01/31/22 History Rivaroxaban [Xarelto] 20 mg PO DIRECTED 11/12/21 01/31/22 History Tamsulosin HCl [Flomax] 0.4 mg PO DAILY 11/12/21 01/31/22 History amLODIPine BESYLATE 5 mg PO DAILY 11/12/21 01/31/22 History lisinopriL [Zestril] 30 mg PO DAILY 12/05/21 01/31/22 History metFORMIN HCL ER [Glucophage XR] 500 mg PO BID 01/31/22 01/31/22 History Allergies Allergy/AdvReac Type Severity Reaction Status Date / Time amoxicillin Allergy Unknown Verified 01/10/22 11:36 Childhood Physical Exam Vitals: Vital Signs Temp Pulse Resp BP Pulse Ox 01/31/22 21:43 98.4 F 110 H 17 121/78 98 01/31/22 19:51 100.5 F H 01/31/22 19:50 129 H 18 126/98 96 01/31/22 17:48 129 H 18 127/85 94 L 01/31/22 16:51 102.9 F H 125 H 20 143/89 97 Intake and Output 01/31/22 01/31/22 02/01/22 14:59 22:59 06:59 Other: Weight 90.718 kg 90.718 kg Constitutional: No acute distress, conversant, pleasant Eyes: Anicteric sclerae, moist conjunctiva, Pupils equal round reactive to light ENMT: NC/AT Oropharynx clear, no erythema, or exudates Neck: Supple, FROM, no masses, or JVD No carotid bruits No thyromegaly Lungs: Clear to auscultation Clear to percussion Normal respiratory effort, no accessory muscle use Cardiovascular: Heart irregular No murmurs, gallops, or rubs No peripheral edema Abdominal: Soft Discomfort to percussion over the right flank, no guarding, rebound or rigidity Abdomen moving with respiration Normoactive bowel sounds No hepatomegaly, No splenomegaly No palpable mass No abdominal wall hernia noted Skin: Normal temperature, tone, texture, turgor No induration No subcutaneous nodules No rash, lesions No ulcers Extremities: No digital cyanosis No clubbing Pedal pulses intact and symmetrical Radial pulses intact and symmetrical No calf tenderness Psychiatric: Alert and oriented to person, place and time Appropriate affect fair judgement Neuro Muscles Strength 5/5 in all 4 extremities Sensation to light touch grossly present throughout Cranial nerves II-XII grossly intact No focal sensory deficits Lymphatics: no palpable cervical or supraclavicular , or inguinal lymph nodes Results CBC & Chem 7: 01/31/22 17:07 01/31/22 17:07 Labs: Abnormal Lab Results - Last 24 Hours (Table) 01/31/22 01/31/22 01/31/22 Range/Units 17: 17:07 17:07 WBC 13.1 H (3.8-10.6) k/uL Plt Count 124 L (150-450) k/uL Neutrophils # 10.9 H (1.3-7.7) k/uL Lymphocytes # 0.6 L (1.0-4.8) k/uL APTT 18.8 L (22.0-30.0) sec BUN (9-20) mg/dL Creatinine (0.66-1.25) mg/dL Glucose (74-99) mg/dL Plasma Lactic Acid Jv (0.7-2.0) mmol/L AST (17-59) U/L Urine Protein 2+ H (Negative) Urine Blood Moderate H (Negative) Ur Leukocyte Esterase Large H (Negative) Urine RBC 11 H (0-5) /hpf Urine WBC >182 H (0-5) /hpf Urine WBC Clumps Few H (None) /hpf Hyaline Casts 12 H (0-2) /lpf Urine Mucus Few H (None) /hpf 01/31/22 01/31/22 Range/Units 17:07 17:07 WBC (3.8-10.6) k/uL Plt Count (150-450) k/uL Neutrophils # (1.3-7.7) k/uL Lymphocytes # (1.0-4.8) k/uL APTT (22.0-30.0) sec BUN 27 H (9-20) mg/dL Creatinine 1.29 H (0.66-1.25) mg/dL Glucose 149 H (74-99) mg/dL Plasma Lactic Acid Jv 2.5 H* (0.7-2.0) mmol/L AST 68 H (17-59) U/L Urine Protein (Negative) Urine Blood (Negative) Ur Leukocyte Esterase (Negative) Urine RBC (0-5) /hpf Urine WBC (0-5) /hpf Urine WBC Clumps (None) /hpf Hyaline Casts (0-2) /lpf Urine Mucus (None) /hpf Microbiology - Last 24 Hours (Table) 01/31/22 17:07 Urine Culture - Preliminary Urine,Voided Thrombosis Risk Factor Assmnt - Choose All That Apply Each Factor Represents 1 point: Obesity (BMI >25) Other Risk Factors: Yes Each Risk Factor Represents 2 Points: Age 61-74 years Thrombosis Risk Factor Assessment Total Risk Factor Score: 3 Thrombosis Risk Factor Assessment Level: Moderate Risk Assessment and Plan Assessment: Severe sepsis suspected UTI with acute kidney injury, with recent right renal calculi status post stent insertion and removal Lactic acidosis Plan Follow-up cultures Current antibiotics with Rocephin Tylenol for fever IV fluid hydration with normal saline Avoid nephrotoxic meds Lactic acid is resolved Chest x-ray negative for acute pathology Respiratory viral panel negative Monitor vital signs Monitor renal function Chronic conditions Diabetes mellitus, insulin sliding scale afib on Xarelto Hypertension resume home blood pressure medications, hold CHACORTA inhibitor due to HPI Full code DVT to prophylaxis heparin subcu 3 times a day Anticipated length of stay more than 2 midnights
[2022-02-01] MEDS ORDERED: SODIUM CHLORIDE 0.9% 1,000 ML IV ONE (01:33)
[2022-02-01] MEDS ORDERED: DILTIAZEM DRIP BOLUS FROM BAG 1 MG SOLN IV ONE (01:34)
[2022-02-01] MEDS: SODIUM CHLORIDE 0.9% 1,000 ML IV SCH ×3 (01:43→17:36)
[2022-02-01] MEDS: DILTIAZEM 125 MG in SODIUM CHLORIDE 0.9% 100 ML IV SCH ×2 (01:55→11:16)
[2022-02-01] MEDS: ACETAMINOPHEN TAB 325 MG TAB PO PRN (02:02)
[2022-02-01 06:55] LABS: Glucose,Whole Blood 183 mg/dL (75-99)
[2022-02-01] MEDS: INSULIN ASPART (NovoLOG) 100 UNIT/ML VIAL SQ SCH ×4 (07:06→21:02)
[2022-02-01 08:27] LABS: Basophils % (A) 0 %; Eosinophils % (A) 0 %; HCT 37.4 % (39.0-53.0); HGB 11.9 gm/dL (13.0-17.5); Lymphocytes # (A) 0.4 k/uL (1.0-4.8); Lymphocytes % (A) 4 %; MCH 30.5 pg (25.0-35.0); MCHC 31.8 g/dL (31.0-37.0); Mean Platelet Volume 9.1; Monocytes # (A) 0.8 k/uL (0-1.0); Monocytes % (A) 7 %; Neutrophils # (A) 10.3 k/uL (1.3-7.7); Neutrophils % (A) 87 %; Platelet Count 117 k/uL (150-450); RBC 3.89 m/uL (4.30-5.90); WBC 11.9 k/uL (3.8-10.6)
[2022-02-01 08:36] LABS: Calcium 7.8 mg/dL (8.4-10.2); Potassium 3.4 mmol/L (3.5-5.1)
[2022-02-01] MEDS ORDERED: METOPROLOL TARTRATE 25 MG TAB PO SCH (09:00)
[2022-02-01] MEDS: ASPIRIN 81 MG PO SCH (09:09)
[2022-02-01] MEDS: OXYBUTYNIN 10 MG TAB.ER.24 PO SCH (09:09)
[2022-02-01] MEDS: TAMSULOSIN 0.4 MG CAP.ER.24H PO SCH (09:09)
[2022-02-01] MEDS: amLODIPine 5 MG TAB PO SCH (09:10)
[2022-02-01] MEDS: FINASTERIDE 5 MG TAB PO SCH (09:10)
[2022-02-01] MEDS ORDERED: METOPROLOL TARTRATE 50 MG TAB PO SCH (11:45)
[2022-02-01] MEDS ORDERED: POTASSIUM CHLORIDE ER 20 MEQ TAB.ER PO STA (11:45)
--- NOTE | 2022-02-01 11:45 | P.PN ---
Subjective Progress Note Date: 02/01/22 Principal diagnosis: weakness Feeling overall better. No fevers now but had a temp of 103 last night. His HR was in the 130s last night, he was started on cardizem gtt. Denied chest pain or sob. No nausea or vomiting. Objective - Vital Signs Vital signs: Vital Signs Temp 97.5 F L 02/01/22 09:06 Pulse 77 02/01/22 10:11 Resp 18 02/01/22 10:11 BP 91/63 02/01/22 09:06 Pulse Ox 97 02/01/22 09:06 Intake & Output 01/31/22 02/01/22 02/01/22 18:59 06:59 18:59 Intake Total 7.083 79.333 Balance 7.083 79.333 Weight 90.718 kg 90.718 kg Intake: Intake, IV Titration 7.083 79.333 Amount Diltiazem 125 mg In 7.083 79.333 Sodium Chloride 0.9% 100 ml @ 5 MG/HR 5 mls/hr IV .Q24H [facility] Rx#:[id number] Other: Voiding Method External Catheter External Catheter # Voids 1 - Exam Constitutional: No acute distress, conversant, pleasant Eyes:Anicteric sclerae, moist conjunctiva, no lid-lag, PERRLA, ENMT: Oropharynx clear, no erythema, exudates Neck: Supple, FROM, no masses, or JVD, No carotid bruits, No thyromegaly Lungs: Clear to auscultation, Clear to percussion, Normal respiratory effort, no accessory muscle use Cardiovascular: irregularly irregular. no murmurs, gallops, or rubs, No peripheral edema Abdominal: Soft, Nontender, no guarding, rebound or rigidity, Normoactive bowel sounds, No hepatomegaly, No splenomegaly, No palpable mass Skin: Normal temperature, tone, texture, turgor, no induration, No subcutaneous nodules, No rash, lesions, No ulcers Extremities: No digital cyanosis, No clubbing, Pedal pulses intact and symmetrical, Radial pulses intact and symmetrical, No calf tenderness Psychiatric: Alert and oriented to person, place and time, appropriate affect, intact judgement Neuro: Muscles Strength 5/5 in all 4 extremities, Sensation to light touch grossly present throughout, Cranial nerves II-XII grossly intact, no focal sensory deficits - Labs CBC & Chem 7: 02/01/22 07:56 02/01/22 07:56 Labs: Abnormal Lab Results - Last 24 Hours (Table) 01/31/22 01/31/22 01/31/22 Range/Units 17:07 17:07 17:07 WBC 13.1 H (3.8-10.6) k/uL RBC (4.30-5.90) m/uL Hgb (13.0-17.5) gm/dL Hct (39.0-53.0) % Plt Count 124 L (150-450) k/uL Neutrophils # 10.9 H (1.3-7.7) k/uL Lymphocytes # 0.6 L (1.0-4.8) k/uL APTT 18.8 L (22.0-30.0) sec Potassium (3.5-5.1) mmol/L BUN (9-20) mg/dL Creatinine (0.66-1.25) mg/dL Glucose (74-99) mg/dL POC Glucose (mg/dL) (75-99) mg/dL Plasma Lactic Acid Jv (0.7-2.0) mmol/L Calcium (8.4-10.2) mg/dL AST (17-59) U/L Urine Protein 2+ H (Negative) Urine Blood Moderate H (Negative) Ur Leukocyte Esterase Large H (Negative) Urine RBC 11 H (0-5) /hpf Urine WBC >182 H (0-5) /hpf Urine WBC Clumps Few H (None) /hpf Hyaline Casts 12 H (0-2) /lpf Urine Mucus Few H (None) /hpf 01/31/22 01/31/22 02/01/22 Range/Units 17:07 17:07 06:42 WBC (3.8-10.6) k/uL RBC (4.30-5.90) m/uL Hgb (13.0-17.5) gm/dL Hct (39.0-53.0) % Plt Count (150-450) k/uL Neutrophils # (1.3-7.7) k/uL Lymphocytes # (1.0-4.8) k/uL APTT (22.0-30.0) sec Potassium (3.5-5.1) mmol/L BUN 27 H (9-20) mg/dL Creatinine 1.29 H (0.66-1.25) mg/dL Glucose 149 H (74-99) mg/dL POC Glucose (mg/dL) 183 H (75-99) mg/dL Plasma Lactic Acid Jv 2.5 H* (0.7-2.0) mmol/L Calcium (8.4-10.2) mg/dL AST 68 H (17-59) U/L Urine Protein (Negative) Urine Blood (Negative) Ur Leukocyte Esterase (Negative) Urine RBC (0-5) /hpf Urine WBC (0-5) /hpf Urine WBC Clumps (None) /hpf Hyaline Casts (0-2) /lpf Urine Mucus (None) /hpf 02/01/22 02/01/22 Range/Units 07:56 07:56 WBC 11.9 H (3.8-10.6) k/uL RBC 3.89 L (4.30-5.90) m/uL Hgb 11.9 L (13.0-17.5) gm/dL Hct 37.4 L (39.0-53.0) % Plt Count 117 L (150-450) k/uL Neutrophils # 10.3 H (1.3-7.7) k/uL Lymphocytes # 0.4 L (1.0-4.8) k/uL APTT (22.0-30.0) sec Potassium 3.4 L (3.5-5.1) mmol/L BUN 26 H (9-20) mg/dL Creatinine (0.66-1.25) mg/dL Glucose 208 H (74-99) mg/dL POC Glucose (mg/dL) (75-99) mg/dL Plasma Lactic Acid Jv (0.7-2.0) mmol/L Calcium 7.8 L (8.4-10.2) mg/dL AST (17-59) U/L Urine Protein (Negative) Urine Blood (Negative) Ur Leukocyte Esterase (Negative) Urine RBC (0-5) /hpf Urine WBC (0-5) /hpf Urine WBC Clumps (None) /hpf Hyaline Casts (0-2) /lpf Urine Mucus (None) /hpf Microbiology - Last 24 Hours (Table) 01/31/22 17:07 Urine Culture - Preliminary Urine,Voided Assessment and Plan Plan: Severe sepsis suspected UTI with acute kidney injury, with recent right renal calculi status post stent insertion and removal Lactic acidosis Plan Follow-up cultures Current antibiotics with Rocephin Tylenol for fever IV fluid hydration with normal saline Avoid nephrotoxic meds Lactic acid is resolved Chest x-ray negative for acute pathology Respiratory viral panel negative Monitor vital signs Monitor renal function JOSUE Likely sec to above Hold CHACORTA inhibitors IV fluids Follow cr in am Hypokalemia Replace and monitor A-fib with RVR On metoprolol 25mg bid at home Will increase dose to 50mg bid Taper cardizem down Continue xarelto Chronic conditions Hypertension resume home blood pressure medications, hold CHACORTA inhibitor due to JOSUE Full code DVT to prophylaxis heparin subcu 3 times a day
[2022-02-01 11:51] LABS: Glucose,Whole Blood 171 mg/dL (75-99)
[2022-02-01] MEDS ORDERED: METOPROLOL TARTRATE 25 MG TAB PO STA (11:57)
[2022-02-01 17:31] LABS: Glucose,Whole Blood 141 mg/dL (75-99)
[2022-02-01 20:47] LABS: Glucose,Whole Blood 145 mg/dL (75-99)
[2022-02-01] MEDS: ATORVASTATIN 10 MG TAB PO SCH (21:01)
[2022-02-01] MEDS: RIVAROXABAN 20 MG TAB PO SCH (21:01)
[2022-02-01] MEDS: METOPROLOL TARTRATE 50 MG TAB PO SCH (21:01)
[2022-02-02] MEDS: SODIUM CHLORIDE 0.9% 1,000 ML IV SCH (01:28)
--- NOTE | 2022-02-02 04:42 | XR ---
EXAMINATION TYPE: XR chest 1V portable DATE OF EXAM: 02/02/2022 COMPARISON: 01/31/2022 HISTORY: Short of breath TECHNIQUE: Single view FINDINGS: There is some patchy infiltrate left lower lobe. Right lung is clear. No heart failure. Hea rt is top normal in size. IMPRESSION: There is left lower lobe pneumonia. No heart failure. Pneumonia appears new compared to o ld exam.
[2022-02-02] MEDS: INSULIN ASPART (NovoLOG) 100 UNIT/ML VIAL SQ SCH ×4 (06:25→20:23)
[2022-02-02] MEDS: ACETAMINOPHEN TAB 325 MG TAB PO PRN (06:26)
[2022-02-02 06:34] LABS: Basophils % (A) 0 %; Eosinophils % (A) 0 %; HCT 37.6 % (39.0-53.0); HGB 11.9 gm/dL (13.0-17.5); Lymphocytes # (A) 0.5 k/uL (1.0-4.8); Lymphocytes % (A) 5 %; MCH 29.9 pg (25.0-35.0); MCHC 31.6 g/dL (31.0-37.0); MCV 94.6 fL (80.0-100.0); Mean Platelet Volume 9.2; Monocytes # (A) 0.7 k/uL (0-1.0); Monocytes % (A) 7 %; Neutrophils # (A) 9.2 k/uL (1.3-7.7); Neutrophils % (A) 87 %; Platelet Count 125 k/uL (150-450); RBC 3.98 m/uL (4.30-5.90); RDW 13.5 % (11.5-15.5); WBC 10.7 k/uL (3.8-10.6)
[2022-02-02 06:37] LABS: Glucose,Whole Blood 128 mg/dL (75-99)
[2022-02-02 06:44] LABS: African American GFR (CKD) >90 (>60 ml/min/1.73 sqM); Anion Gap 10 mmol/L; Blood Urea Nitrogen 22 mg/dL (9-20); Calcium 8.4 mg/dL (8.4-10.2); Carbon Dioxide 24 mmol/L (22-30); Chloride 104 mmol/L (98-107); Glucose 141 mg/dL (74-99); Magnesium 1.4 mg/dL (1.6-2.3); Non-African American GFR(CKD) 87 (>60 ml/min/1.73 sqM); Potassium 3.6 mmol/L (3.5-5.1); Sodium 138 mmol/L (137-145)
[2022-02-02] MEDS: FINASTERIDE 5 MG TAB PO SCH (08:11)
[2022-02-02] MEDS: TAMSULOSIN 0.4 MG CAP.ER.24H PO SCH (08:11)
[2022-02-02] MEDS: ASPIRIN 81 MG PO SCH (08:11)
[2022-02-02] MEDS: amLODIPine 5 MG TAB PO SCH (08:11)
[2022-02-02] MEDS: METOPROLOL TARTRATE 50 MG TAB PO SCH ×2 (08:11→20:23)
[2022-02-02] MEDS: OXYBUTYNIN 10 MG TAB.ER.24 PO SCH (08:11)
--- NOTE | 2022-02-02 11:22 | P.GSCN ---
History of Present Illness Consult date: 02/02/22 Reason for Consult: UTI History of present illness: 71-year-old male with history of right-sided renal stone, underwent a right- sided ureteroscopy on January 10. And stent was subsequently removed on January 27. He Indicated since stent removal he's been feeling more fatigued, also having nonproductive cough and fevers. Patient was febrile at 103 on presentation. Urine analysis was positive for leukocyte esterase, urine cultures pending. And chest x-ray this morning showed a possible left lobe pneumonia. Denies any flank pain, or gross hematuria. Having mild dysuria Review of Systems - Constitutional Reports chills, Reports fatigue, Reports fever - Cardiovascular Denies chest pain, Denies shortness of breath - Respiratory Reports cough, Reports dyspnea - Gastrointestinal Reports as per HPI - Genitourinary Denies dysuria, Denies hematuria - Neurological Denies headaches, Denies syncope Past Medical History Past Medical History: Atrial Fibrillation, Cancer, Chest Pain / Angina, Diabetes Mellitus, Hyperlipidemia, Hypertension, Osteoarthritis (OA), Prostate Disorder Additional Past Medical History / Comment(s): kidney stones,bone spur right hip History of Any Multi-Drug Resistant Organisms: None Reported Past Surgical History: Orthopedic Surgery, Tonsillectomy Additional Past Surgical History / Comment(s): Carpal Tunnel Release, RT KNEE ARTHROSOCPY Past Anesthesia/Blood Transfusion Reactions: No Reported Reaction Additional Past Anesthesia/Blood Transfusion Reaction / Comm: no hx blood transfusion Past Psychological History: No Psychological Hx Reported Smoking Status: Former smoker - Past Family History Mother Family Medical History: AFIB Additional Family Medical History / Comment(s): states that his mother from "gangrene of the stomach" Father Family Medical History: AICD/Pacemaker, Myocardial Infarction (OR) Additional Family Medical History / Comment(s): pacer Brother(s) Family Medical History: AFIB Sister(s) Family Medical History: AFIB Medications and Allergies Home Medications Medication Instructions Recorded Confirmed Type Lovastatin [Mevacor] 40 mg PO HS 12/15/14 01/31/22 History Aspirin 81 mg PO DAILY 12/16/14 01/31/22 History Finasteride [Proscar] 5 mg PO DAILY 11/12/21 01/31/22 History Metoprolol Tartrate [Lopressor] 25 mg PO BID 11/12/21 01/31/22 History Oxybutynin ER [Ditropan Xl] 10 mg PO DAILY 11/12/21 01/31/22 History Rivaroxaban [Xarelto] 20 mg PO DIRECTED 11/12/21 01/31/22 History Tamsulosin HCl [Flomax] 0.4 mg PO DAILY 11/12/21 01/31/22 History amLODIPine BESYLATE 5 mg PO DAILY 11/12/21 01/31/22 History lisinopriL [Zestril] 30 mg PO DAILY 12/05/21 01/31/22 History metFORMIN HCL ER [Glucophage XR] 500 mg PO BID 01/31/22 01/31/22 History Allergies Allergy/AdvReac Type Severity Reaction Status Date / Time amoxicillin Allergy Unknown Verified 01/10/22 11:36 Childhood Surgical - Exam Vital Signs Temp Pulse Resp BP Pulse Ox 102.9 F H 125 H 20 143/89 97 01/31/22 16:51 01/31/22 16:51 01/31/22 16:51 01/31/22 16:51 01/31/22 16:51 - General no distress, no pain - Eyes normal ocular movement, no pale - ENT normal nares, normal mucosa - Respiratory Labored breathing - Abdomen Abdomen: soft, non tender - Psychiatric oriented to time, oriented to person, oriented to place Results - Labs 02/02/22 05:51 02/02/22 05:51 Abnormal Lab Results - Last 24 Hours (Table) 02/01/22 02/01/22 02/01/22 Range/Units 11:49 17:18 20:13 WBC (3.8-10.6) k/uL RBC (4.30-5.90) m/uL Hgb (13.0-17.5) gm/dL Hct (39.0-53.0) % Plt Count (150-450) k/uL Neutrophils # (1.3-7.7) k/uL Lymphocytes # (1.0-4.8) k/uL BUN (9-20) mg/dL Glucose (74-99) mg/dL POC Glucose (mg/dL) 171 H 141 H 145 H (75-99) mg/dL Magnesium (1.6-2.3) mg/dL 02/02/22 02/02/22 02/02/22 Range/Units 05:51 05:51 06:14 WBC 10.7 H (3.8-10.6) k/uL RBC 3.98 L (4.30-5.90) m/uL Hgb 11.9 L (13.0-17.5) gm/dL Hct 37.6 L (39.0-53.0) % Plt Count 125 L (150-450) k/uL Neutrophils # 9.2 H (1.3-7.7) k/uL Lymphocytes # 0.5 L (1.0-4.8) k/uL BUN 22 H (9-20) mg/dL Glucose 141 H (74-99) mg/dL POC Glucose (mg/dL) 128 H (75-99) mg/dL Magnesium 1.4 L (1.6-2.3) mg/dL Microbiology - Last 24 Hours (Table) 01/31/22 21:00 Blood Culture - Preliminary Blood No Growth after 24 hours 01/31/22 21:28 Blood Culture - Preliminary Blood No Growth after 24 hours Diabetes panel 02/02/22 Range/Units 05:51 Sodium 138 (137-145) mmol/L Potassium 3.6 (3.5-5.1) mmol/L Chloride 104 (98-107) mmol/L Carbon Dioxide 24 (22-30) mmol/L BUN 22 H (9-20) mg/dL Creatinine 0.86 (0.66-1.25) mg/dL Glucose 141 H (74-99) mg/dL Calcium 8.4 (8.4-10.2) mg/dL Calcium panel 02/02/22 Range/Units 05:51 Calcium 8.4 (8.4-10.2) mg/dL Pituitary panel 02/02/22 Range/Units 05:51 Sodium 138 (137-145) mmol/L Potassium 3.6 (3.5-5.1) mmol/L Chloride 104 (98-107) mmol/L Carbon Dioxide 24 (22-30) mmol/L BUN 22 H (9-20) mg/dL Creatinine 0.86 (0.66-1.25) mg/dL Glucose 141 H (74-99) mg/dL Calcium 8.4 (8.4-10.2) mg/dL Adrenal panel 02/02/22 Range/Units 05:51 Sodium 138 (137-145) mmol/L Potassium 3.6 (3.5-5.1) mmol/L Chloride 104 (98-107) mmol/L Carbon Dioxide 24 (22-30) mmol/L BUN 22 H (9-20) mg/dL Creatinine 0.86 (0.66-1.25) mg/dL Glucose 141 H (74-99) mg/dL Calcium 8.4 (8.4-10.2) mg/dL Assessment and Plan Assessment: 71-year-old male admitted to the hospital with sepsis secondary to UTI versus pneumonia. Urine cultures pending. Had a recent ureteroscopy on January 10, and stent was removed on January 27. -Dennis can be removed when no longer needed by primary, obtain bladder scan after dennis removal if < 300 mL ok for discharge w/o dennis catheter -We'll follow up on urine culture, recommended urine cultures if positive then we'll need a minimum of 7 days of antibiotics based on culture sensitivity.
[2022-02-02 12:11] LABS: Glucose,Whole Blood 134 mg/dL (75-99)
[2022-02-02] MEDS ORDERED: IPRATROPIUM-ALBUTEROL 3 ML NEB INHALATION PRN (16:11)
--- NOTE | 2022-02-02 16:21 | P.PN ---
Subjective Progress Note Date: 02/02/22 Principal diagnosis: weakness RN notified provider last night of patient being short of breath, respirations 30. sating 89% on room air and on 2L and is still only 93%. Heart rate was running around 114-126 last night. Also had a fever of 100.7. This morning he is already feeling better. Still on oxygen. Breathing is improved. Objective - Vital Signs Vital signs: Vital Signs Temp 97.5 F L 02/02/22 08:04 Pulse 98 02/02/22 14:21 Resp 18 02/02/22 14:21 BP 141/90 02/02/22 12:17 Pulse Ox 94 L 02/02/22 12:17 Intake & Output 02/01/22 02/02/22 02/02/22 18:59 06:59 18:59 Intake Total 824.333 240 Output Total 500 650 300 Balance 324.333 -650 -60 Intake: Intake, IV Titration 104.333 Amount Diltiazem 125 mg In 104.333 Sodium Chloride 0.9% 100 ml @ 5 MG/HR 5 mls/hr IV .Q24H [facility] Rx#:[id number] Oral 720 240 Output: Urine 500 650 300 Other: Voiding Method External Catheter External Catheter External Catheter # Voids 0 # Bowel Movements 0 - Exam Constitutional: No acute distress, conversant, pleasant Eyes:Anicteric sclerae, moist conjunctiva, no lid-lag, PERRLA, ENMT: Oropharynx clear, no erythema, exudates Neck: Supple, FROM, no masses, or JVD, No carotid bruits, No thyromegaly Lungs: Bilateral diffuse wheezing and rhonchi. Clear to percussion, Normal respiratory effort, no accessory muscle use Cardiovascular: irregularly irregular. no murmurs, gallops, or rubs, No peripheral edema Abdominal: Soft, Nontender, no guarding, rebound or rigidity, Normoactive bowel sounds, No hepatomegaly, No splenomegaly, No palpable mass Skin: Normal temperature, tone, texture, turgor, no induration, No subcutaneous nodules, No rash, lesions, No ulcers Extremities: No digital cyanosis, No clubbing, Pedal pulses intact and symmetrical, Radial pulses intact and symmetrical, No calf tenderness Psychiatric: Alert and oriented to person, place and time, appropriate affect, intact judgement Neuro: Muscles Strength 5/5 in all 4 extremities, Sensation to light touch grossly present throughout, Cranial nerves II-XII grossly intact, no focal sensory deficits - Labs CBC & Chem 7: 02/02/22 05:51 02/02/22 05:51 Labs: Abnormal Lab Results - Last 24 Hours (Table) 02/01/22 02/01/22 02/02/22 Range/Units 17:18 20:13 05:51 WBC 10.7 H (3.8-10.6) k/uL RBC 3.98 L (4.30-5.90) m/uL Hgb 11.9 L (13.0-17.5) gm/dL Hct 37.6 L (39.0-53.0) % Plt Count 125 L (150-450) k/uL Neutrophils # 9.2 H (1.3-7.7) k/uL Lymphocytes # 0.5 L (1.0-4.8) k/uL BUN (9-20) mg/dL Glucose (74-99) mg/dL POC Glucose (mg/dL) 141 H 145 H (75-99) mg/dL Magnesium (1.6-2.3) mg/dL 02/02/22 02/02/22 02/02/22 Range/Units 05:51 06:14 11:58 WBC (3.8-10.6) k/uL RBC (4.30-5.90) m/uL Hgb (13.0-17.5) gm/dL Hct (39.0-53.0) % Plt Count (150-450) k/uL Neutrophils # (1.3-7.7) k/uL Lymphocytes # (1.0-4.8) k/uL BUN 22 H (9-20) mg/dL Glucose 141 H (74-99) mg/dL POC Glucose (mg/dL) 128 H 134 H (75-99) mg/dL Magnesium 1.4 L (1.6-2.3) mg/dL Microbiology - Last 24 Hours (Table) 01/31/22 21:00 Blood Culture - Preliminary Blood No Growth after 24 hours 01/31/22 21:28 Blood Culture - Preliminary Blood No Growth after 24 hours Assessment and Plan Plan: Severe sepsis suspected community-acquired pneumonia versus UTI with acute kidney injury, with recent right renal calculi status post stent insertion and removal Lactic acidosis Plan Seen by urology Blood cultures negative so far, follow urine cultures Patient had a chest x-ray last night that revealed left lower lobe infiltrates. We'll add doxycycline to Rocephin for community-acquired pneumonia coverage. Add DuoNeb's Tylenol for fever IV fluid discontinued Avoid nephrotoxic meds Lactic acidosis is resolved Respiratory viral panel negative JOSUE Resolved with IV hydration Follow cr in am Hypomagnesemia Replace and follow Hypokalemia Replaced A-fib with RVR On metoprolol 25mg bid at home Metoprolol dose increased to 50mg bid, was on 25 mg twice a day at home. He was on Cardizem drip earlier in the admission, no discontinued Continue xarelto Chronic conditions Hypertension resume home blood pressure medications, hold CHACORTA inhibitor due to JOSUE Full code DVT to prophylaxis heparin subcu 3 times a day
[2022-02-02] MEDS: DOXYCYCLINE 100 MG CAP PO SCH ×2 (16:39→20:23)
[2022-02-02] MEDS: MAGNESIUM SULFATE-D5W PMX 1 GM in DEXTROSE/WATER 1 100ML.BAG IVPB SCH ×3 (16:39→20:23)
[2022-02-02 16:45] LABS: Glucose,Whole Blood 141 mg/dL (75-99)
[2022-02-02] MEDS: methylPREDNISolone SOD SUCCI 40 MG/ML 1 ML VIAL IV SCH ×2 (16:50→23:54)
[2022-02-02] MEDS: IPRATROPIUM-ALBUTEROL 3 ML NEB INHALATION SCH (20:13)
[2022-02-02 20:16] LABS: Glucose,Whole Blood 206 mg/dL (75-99)
[2022-02-02] MEDS: RIVAROXABAN 20 MG TAB PO SCH (20:23)
[2022-02-02] MEDS: ATORVASTATIN 10 MG TAB PO SCH (20:23)
[2022-02-03 05:15] LABS: Glucose,Whole Blood 206 mg/dL (75-99)
[2022-02-03] MEDS: INSULIN ASPART (NovoLOG) 100 UNIT/ML VIAL SQ SCH ×4 (06:08→21:24)
[2022-02-03] MEDS: methylPREDNISolone SOD SUCCI 40 MG/ML 1 ML VIAL IV SCH ×4 (06:08→23:18)
[2022-02-03 07:59] LABS: African American GFR (CKD) >90 (>60 ml/min/1.73 sqM); Anion Gap 12 mmol/L; Blood Urea Nitrogen 16 mg/dL (9-20); Calcium 8.7 mg/dL (8.4-10.2); Carbon Dioxide 25 mmol/L (22-30); Chloride 104 mmol/L (98-107); Glucose 206 mg/dL (74-99); Magnesium 1.6 mg/dL (1.6-2.3); Non-African American GFR(CKD) >90 (>60 ml/min/1.73 sqM); Potassium 3.6 mmol/L (3.5-5.1); Sodium 141 mmol/L (137-145)
[2022-02-03] MEDS: TAMSULOSIN 0.4 MG CAP.ER.24H PO SCH (08:37)
[2022-02-03] MEDS: amLODIPine 5 MG TAB PO SCH (08:37)
[2022-02-03] MEDS: METOPROLOL TARTRATE 50 MG TAB PO SCH ×2 (08:37→21:23)
[2022-02-03] MEDS: ASPIRIN 81 MG PO SCH (08:37)
[2022-02-03] MEDS: FINASTERIDE 5 MG TAB PO SCH (08:37)
[2022-02-03] MEDS: DOXYCYCLINE 100 MG CAP PO SCH ×2 (08:37→21:23)
[2022-02-03] MEDS: NITROFURANTOIN MONOHYD/M-CRYST 100 MG CAP PO SCH ×2 (08:37→21:24)
[2022-02-03] MEDS: OXYBUTYNIN 10 MG TAB.ER.24 PO SCH (08:38)
[2022-02-03] MEDS: IPRATROPIUM-ALBUTEROL 3 ML NEB INHALATION SCH ×4 (08:48→22:15)
[2022-02-03 09:33] LABS: HCT 37.6 % (39.0-53.0); HGB 11.7 gm/dL (13.0-17.5); MCH 29.5 pg (25.0-35.0); MCV 94.9 fL (80.0-100.0); Mean Platelet Volume 9.2; Platelet Count 140 k/uL (150-450); RBC 3.97 m/uL (4.30-5.90); RDW 13.4 % (11.5-15.5); WBC 7.3 k/uL (3.8-10.6)
[2022-02-03 11:30] LABS: Glucose,Whole Blood 274 mg/dL (75-99)
--- NOTE | 2022-02-03 13:26 | P.PN ---
Subjective Progress Note Date: 02/03/22 Hospital course: Patient is a very pleasant 71-year-old male with a past medical history of hypertension, hyperlipidemia, atrial fibrillation on anticoagulation with Xarelto, [id number] diabetes mellitus, BPH, and recent right renal calculi requiring cystoscopy with insertion of renal stent (01/10/22) and removal of renal stent (01/27/22). He presented to the emergency department on 01/31/22 with a chief complaint of weakness. He was seen and fully evaluated in the emergency department. An EKG was completed revealing A. fib RVR at 117 bpm. Labs revealed mild leukocytosis with WBCs of 13.1, thrombocytopenia with platelet count of 124, and an acute kidney injury with BUN 27, creatinine 1.29, and GFR 55. Urinalysis was positive for blood and infection. Initial x-ray negative for acute cardiopulmonary process. Covid, influenza A, and influenza B were all negative. Patient was started on IV antibiotics Rocephin admitted under our services with consultation to urology. Patient was found to have episodes of hypoxia requiring oxygen supplementation. Repeat chest x-ray completed on 02/02/22 revealed left lower lobe pneumonia. Doxycycline added to medication regimen. Blood cultures showing no growth to date. Urine culture was positive for Staphylococcus epidermidis inpatient started on nitrofurantoin per culture and sensitivity report. Physical exam: Patient seen and fully evaluated at the bedside this morning. He reports feeling weak but does state he does feel better each day. Urine culture was positive for Staphylococcus epidermidis and nitrofurantoin was added onto antibiotic regimen per culture and sensitivity report. Patient reports having a mild productive cough, otherwise denies having any other complaints or concerns at this time including headache, lightheadedness, dizziness, chest pain, palpitations, shortness of breath. Vital signs stable. Blood pressure 131/87, heart rate 114, respiratory rate 17, and SpO2 of 93% on room air. Patient afebrile with temp of 97.6F with highest temperature over the past 24 hours being 100.7F . Vital signs reviewed and stable. General: Nontoxic, no distress and appears stated age. Derm: Skin warm and dry, normal coloration for ethnicity. Head: Atraumatic, normocephalic and symmetric. Eyes: EOMs intact, no lid lag, and anicteric sclera Mouth: no lip lesions, mucus membranes moist Cardiovascular: Irregularly irregular, no murmur, positive posterior tibial pulses bilaterally, and cap refill < 2 seconds. Lungs: Respirations even, regular, and unlabored on room air. Lungs CTA bilaterally, no rhonchi, no rales, no wheezing, and no accessory muscle usage. Abdominal: soft, nontender to palpation, no guarding, no appreciable organomegaly Ext: ROM intact. No gross muscle atrophy, no edema, no contractures Neuro: Speech clear, face symmetrical and CN II-XII grossly intact with no noted focal neuro deficits Psych: Alert and oriented to person, place, time, and situation. Appropriate and pleasant affect. Assessment and Plan of Care: Staphylococcus epidermidis UTI status post recent right renal calculi requiring insertion (01/10/22) and removal of renal stent (01/27/22) Community-acquired pneumonia Sepsis secondary to combination of both above Lactic acidosis -Urology following -Urine culture positive for Staphylococcus epidermidis -Blood culture showing no growth to date. -Repeat x-ray completed 02/02/22 positive for left lower lobe pneumonia -Patient to continue doxycycline and Rocephin for community-acquired pneumonia -Patient started on nitrofurantoin for treatment of Staphylococcus epidermidis UTI -Continue DuoNeb -Symptomatic care and pain management. Tylenol as needed for fevers. JOSUE, resolved after IV fluid hydration Hypomagnesemia -Replaced, we will continue to monitor with repeat a.m. labs. Hypokalemia, resolved A-fib with RVR -Metoprolol dose increased to 50mg bid -Continue daily anticoagulant with Xarelto Hypertension -Monitor vital signs and resume home blood pressure medications, hold CHACORTA inhibitor due to JOSUE CODE STATUS: Full code DVT prophylaxis: Heparin Discussed with: Patient and RN Anticipated discharge date: Clinical course to determine, likely tomorrow Anticipated discharge place: Home A total of 38 minutes was spent on the care of this complex patient more than 50% of the time was spent in counseling and care coordination. I reviewed the documentation as provided by the TATIANA above, who is the original author of this note. I agree with the documented assessment and plan, with the following changes: None Objective - Vital Signs Vital signs: Vital Signs Temp 97.9 F 02/03/22 03:54 Pulse 98 02/03/22 03:54 Resp 18 02/03/22 03:54 BP 119/81 02/03/22 03:54 Pulse Ox 95 02/03/22 03:54 Intake & Output 02/02/22 02/03/22 02/03/22 18:59 06:59 18:59 Intake Total 1200 400 Output Total 300 1300 Balance 900 -900 Intake: Oral 1200 400 Output: Urine 300 1300 Other: Voiding Method External Catheter External Catheter - Labs CBC & Chem 7: 02/03/22 07:11 02/03/22 07:11 Labs: Abnormal Lab Results - Last 24 Hours (Table) 02/02/22 02/02/22 02/02/22 Range/Units 11:58 16:24 20:14 POC Glucose (mg/dL) 134 H 141 H 206 H (75-99) mg/dL 02/03/22 Range/Units 05:11 POC Glucose (mg/dL) 206 H (75-99) mg/dL Microbiology - Last 24 Hours (Table) 01/31/22 21:00 Blood Culture - Preliminary Blood No Growth after 48 hours 01/31/22 21:28 Blood Culture - Preliminary Blood No Growth after 48 hours 01/31/22 17:07 Urine Culture - Final Urine,Voided Staphylococcus epidermidis
[2022-02-03] MEDS: MAGNESIUM SULFATE-D5W PMX 1 GM in DEXTROSE/WATER 1 100ML.BAG IVPB SCH ×3 (14:12→18:03)
[2022-02-03 16:20] LABS: Glucose,Whole Blood 310 mg/dL (75-99)
[2022-02-03 20:21] LABS: Glucose,Whole Blood 323 mg/dL (75-99)
[2022-02-03] MEDS: ATORVASTATIN 10 MG TAB PO SCH (21:23)
[2022-02-03] MEDS: RIVAROXABAN 20 MG TAB PO SCH (21:23)
[2022-02-04 03:32] VITALS: RESP 16; TEMP 97.9
[2022-02-04] MEDS: methylPREDNISolone SOD SUCCI 40 MG/ML 1 ML VIAL IV SCH ×2 (05:56→11:51)
[2022-02-04] MEDS: INSULIN ASPART (NovoLOG) 100 UNIT/ML VIAL SQ SCH ×2 (06:02→11:51)
[2022-02-04 06:07] LABS: Glucose,Whole Blood 229 mg/dL (75-99)
[2022-02-04] MEDS: DOXYCYCLINE 100 MG CAP PO SCH (08:01)
[2022-02-04] MEDS: amLODIPine 5 MG TAB PO SCH (08:01)
[2022-02-04] MEDS: OXYBUTYNIN 10 MG TAB.ER.24 PO SCH (08:01)
[2022-02-04] MEDS: NITROFURANTOIN MONOHYD/M-CRYST 100 MG CAP PO SCH (08:01)
[2022-02-04] MEDS: ASPIRIN 81 MG PO SCH (08:01)
[2022-02-04] MEDS: TAMSULOSIN 0.4 MG CAP.ER.24H PO SCH (08:01)
[2022-02-04] MEDS: METOPROLOL TARTRATE 50 MG TAB PO SCH (08:01)
[2022-02-04] MEDS: FINASTERIDE 5 MG TAB PO SCH (08:01)
[2022-02-04] MEDS: IPRATROPIUM-ALBUTEROL 3 ML NEB INHALATION SCH ×2 (08:18→11:54)
[2022-02-04 11:07] LABS: MCH 30.2 pg (25.0-35.0); MCHC 31.7 g/dL (31.0-37.0); MCV 95.2 fL (80.0-100.0); Mean Platelet Volume 8.7; Platelet Count 226 k/uL (150-450); RBC 3.99 m/uL (4.30-5.90); RDW 13.5 % (11.5-15.5); WBC 14.1 k/uL (3.8-10.6)
[2022-02-04 11:21] LABS: Anion Gap 11 mmol/L; Blood Urea Nitrogen 20 mg/dL (9-20); Calcium 9.5 mg/dL (8.4-10.2); Carbon Dioxide 31 mmol/L (22-30); Chloride 100 mmol/L (98-107); Glucose 212 mg/dL (74-99); Magnesium 1.6 mg/dL (1.6-2.3); Potassium 3.5 mmol/L (3.5-5.1); Sodium 142 mmol/L (137-145)
[2022-02-04 11:22] LABS: African American GFR (CKD) >90 (>60 ml/min/1.73 sqM); Non-African American GFR(CKD) >90 (>60 ml/min/1.73 sqM)
[2022-02-04 11:45] LABS: Glucose,Whole Blood 183 mg/dL (75-99)
--- NOTE | 2022-02-04 11:57 | P.DS ---
Providers Date of admission: 01/31/22 20:28 Expected date of discharge: 02/04/22 Attending physician: Nani Coffey MD Consults: 01/31/22 20:29 Consult Physician Urgent Consulting Provider: Vadim Peres Consult Reason/Comments: acute uti, recent stent removal Do you want consulting provider notified?: Yes Primary care physician: SHIRLEY COON, Hospital Course: Discharge Diagnosis: Staphylococcus epidermidis UTI status post recent right renal calculi requiring insertion (01/10/22) and removal of renal stent (01/27/22), patient discharged home on Macrobid 100 mg twice daily for 6 additional days to complete a 7 day treatment course of antibiotics based on culture and sensitivity report Community-acquired pneumonia, received 4 day course of IV antibiotics during hospitalization patient discharged home on doxycycline 100 mg twice daily 6 days complete a 10 day course of antibiotics. Sepsis secondary to combination of both above Lactic acidosis, resolved JOSUE, resolved after IV fluid hydration Hypomagnesemia, replaced Hypokalemia, replaced A-fib with RVR. Metoprolol dose increased to 50mg bid. Continue daily anticoagulant with Xarelto. Hypertension Hospital Course: Patient is a very pleasant 71-year-old male with a past medical history of hypertension, hyperlipidemia, atrial fibrillation on anticoagulation with Xarelto, [id number] diabetes mellitus, BPH, and recent right renal calculi requiring cystoscopy with insertion of renal stent (01/10/22) and removal of renal stent (01/27/22). He presented to the emergency department on 01/31/22 with a chief complaint of weakness. He was seen and fully evaluated in the emergency department. An EKG was completed revealing A. fib RVR at 117 bpm. Labs revealed mild leukocytosis with WBCs of 13.1, thrombocytopenia with platelet count of 124, and an acute kidney injury with BUN 27, creatinine 1.29, and GFR 55. Urinalysis was positive for blood and infection. Initial x-ray negative for acute cardiopulmonary process. Covid, influenza A, and influenza B were all negative. Patient was started on IV antibiotics Rocephin admitted under our services with consultation to urology. Patient was found to have episodes of hypoxia requiring oxygen supplementation. Repeat chest x-ray completed on 02/02/22 revealed left lower lobe pneumonia. Doxycycline added to medication regimen. Blood cultures showing no growth to date. Urine culture was positive for Staphylococcus epidermidis inpatient started on nitrofurantoin per culture and sensitivity report. Patient's condition stable and he reports feeling better and better each day. Patient requesting discharge home at this time stating he feels better and denies having any headache, lightheadedness, dizziness, chest pain, palpitations, shortness of breath, dyspnea with exertion, or any other complaints. Patient has been ambulatory in room and in headley without difficulties or experiencing any reports of dyspnea with exertion. Patient has been afebrile for 48 hours now. Patient discharged home on oral doxycycline to complete course of antibiotics for community-acquired pneumonia and on Macrobid to complete course for treatment of Staphylococcus epidermidis UTI. Patient to follow up outpatient with PCP and urology. Physical exam: Vital signs reviewed and stable. General: Nontoxic, no distress and appears stated age. Derm: Skin warm and dry, normal coloration for ethnicity. Head: Atraumatic, normocephalic and symmetric. Eyes: EOMs intact, no lid lag, and anicteric sclera Mouth: no lip lesions, mucus membranes moist Cardiovascular: Irregularly irregular, no murmur, positive posterior tibial pulses bilaterally, and cap refill < 2 seconds. Lungs: Respirations even, regular, and unlabored on room air. Lungs CTA bilaterally, no rhonchi, no rales, no wheezing, and no accessory muscle usage. Abdominal: soft, nontender to palpation, no guarding, no appreciable organomegaly Ext: ROM intact. No gross muscle atrophy, no edema, no contractures Neuro: Speech clear, face symmetrical and CN II-XII grossly intact with no noted focal neuro deficits Psych: Alert and oriented to person, place, time, and situation. Appropriate and pleasant affect. A total of 34 minutes of time were spent preparing this complex discharge summary. Pt was discharged on 02/04/22 at 11:56 AM. Patient Condition at Discharge: Stable Plan - Discharge Summary Discharge Rx Participant: No New Discharge Prescriptions: New predniSONE See Taper PO DIRECTED #30 tab Doxycycline [Vibramycin] 100 mg PO BID 6 Days #12 cap Nitrofurantoin Monohyd/M-Cryst [Macrobid] 100 mg PO BID 6 Days #12 cap Continue Lovastatin [Mevacor] 40 mg PO HS Aspirin 81 mg PO DAILY Rivaroxaban [Xarelto] 20 mg PO HS Tamsulosin HCl [Flomax] 0.4 mg PO DAILY Finasteride [Proscar] 5 mg PO DAILY lisinopriL [Zestril] 30 mg PO DAILY metFORMIN HCL ER [Glucophage XR] 500 mg PO BID Oxybutynin ER [Ditropan Xl] 10 mg PO DAILY amLODIPine BESYLATE 5 mg PO DAILY Changed Metoprolol Tartrate [Lopressor] 50 mg PO BID 30 Days #60 tab Discharge Medication List Lovastatin [Mevacor] 40 mg PO HS 12/15/14 [History] Aspirin 81 mg PO DAILY 12/16/14 [History] Finasteride [Proscar] 5 mg PO DAILY 11/12/21 [History] Oxybutynin ER [Ditropan Xl] 10 mg PO DAILY 11/12/21 [History] Rivaroxaban [Xarelto] 20 mg PO HS 11/12/21 [History] Tamsulosin HCl [Flomax] 0.4 mg PO DAILY 11/12/21 [History] amLODIPine BESYLATE 5 mg PO DAILY 11/12/21 [History] lisinopriL [Zestril] 30 mg PO DAILY 12/05/21 [History] metFORMIN HCL ER [Glucophage XR] 500 mg PO BID 01/31/22 [History] Doxycycline [Vibramycin] 100 mg PO BID 6 Days #12 cap 02/04/22 [Rx] Metoprolol Tartrate [Lopressor] 50 mg PO BID 30 Days #60 tab 02/04/22 [Rx] Nitrofurantoin Monohyd/M-Cryst [Macrobid] 100 mg PO BID 6 Days #12 cap 02/04/22 [Rx] predniSONE See Taper PO DIRECTED #30 tab 02/04/22 [Rx] Follow up Appointment(s)/Referral(s): SHIRLEY COON DO [Primary Care Provider] - 1-2 days (call to schedule follow up appointment. ) Vadim Peres MD [STAFF PHYSICIAN] - 1 Week (call to schedule follow up appointment. ) Patient Instructions/Handouts: Urinary Tract Infection in Men (DC) Activity/Diet/Wound Care/Special Instructions: Activity: As tolerated. Take breaks as needed. Diet: Heart healthy and carb consistent diet. Avoid salts, or foods with hidden salts such as canned or boxed foods and frozen dinners. Extra salt makes your heart work harder and traps the fluid in your body for longer. Special Instructions: Take all of your medications as directed and remember to keep all of your doctor's appointments and follow-up as needed. Your Metroprolol was increased to 50 mg twice daily, a new prescription was sent. Thank you for allowing us to participate in your care, it was truly a pleasure having you for our patient!!! Discharge Disposition: HOME SELF-CARE
[2022-02-04 13:03] VITALS: BP 155/93; PULSE 81
== END 2022-02-04 12:50 | disposition home or self-care (01) | DRG 871 ==
LOC: EC 16:49 → 3SCARD 20:28
PROVIDERS: ADMIT Internal Medicine; ATTEND Internal Medicine
DX: A41.1 Sepsis due to other specified staphylococcus (principal); J18.9 Pneumonia, unspecified organism; N17.9 Acute kidney failure, unspecified; E87.2 Acidosis; N39.0 Urinary tract infection, site not specified; R65.20 Severe sepsis without septic shock; D69.6 Thrombocytopenia, unspecified; E11.9 Type 2 diabetes mellitus without complications; E78.5 Hyperlipidemia, unspecified; E83.42 Hypomagnesemia; E87.6 Hypokalemia; I10 Essential (primary) hypertension; I48.91 Unspecified atrial fibrillation; N40.0 Benign prostatic hyperplasia without lower urinary tract symptoms; R09.02 Hypoxemia; Z28.310 Unvaccinated for COVID-19; Z20.822 Contact with and (suspected) exposure to COVID-19; Z79.01 Long term (current) use of anticoagulants; Z79.82 Long term (current) use of aspirin; Z79.84 Long term (current) use of oral hypoglycemic drugs; Z79.899 Other long term (current) drug therapy; Z82.49 Family history of ischemic heart disease and other diseases of the circulatory system; Z87.442 Personal history of urinary calculi; Z87.891 Personal history of nicotine dependence; Z91.14 Patient's other noncompliance with medication regimen; Z88.0 Allergy status to penicillin; Z98.890 Other specified postprocedural states; Z95.810 Presence of automatic (implantable) cardiac defibrillator
CPT/HCPCS: 36415; 71045; 71046; 80048; 80053; 81001; 83605; 83735; 84484; 85025; 85027; 85610; 85730; 87040; 87077; 87086; 87186; 87502; 87635; 93005; 94640; 94760; 96374; 96375; 99285

== ENCOUNTER → 2023-04-27 | Outpatient (CLI) | payer MEDICARE, OTHER ==
[2023-04-27 13:02] LABS: INR 1.4 (<1.2); Partial Thromboplastin Time 33.1 sec (22.0-30.0); Prothrombin Time 14.5 sec (9.0-12.0)
[2023-04-27 15:34] LABS: Basophils # (A) 0.06 X 10*3/uL (0.00-0.10); Basophils % (A) 0.8 %; Eosinophils # (A) 0.18 X 10*3/uL (0.04-0.35); Eosinophils % (A) 2.3 %; HCT 41.8 % (37.2-50.0); HGB 13.9 d/dL (12.0-17.0); Lymphocytes # (A) 1.35 X 10*3/uL (0.90-5.00); Lymphocytes % (A) 16.9 %; MCH 31.7 pg (27.0-32.0); MCHC 33.3 d/dL (32.0-37.0); MCV 95.4 FL (80.0-97.0); Mean Platelet Volume 11.9 FL (9.5-12.2); Monocytes # (A) 0.76 X 10*3/uL (0.20-1.00); Monocytes % (A) 9.5 %; NRBC Per 100 WBC 0 X 10*3/uL (0.00-0.01); Platelet Count 149 X 10*3/uL (140-440); RBC 4.38 X 10*6/uL (4.10-5.60); RDW 12.4 % (11.5-14.5); WBC 7.99 X 10*3/uL (4.50-10.00)
[2023-04-27 16:12] LABS: BUN/Creat Ratio 14.09 Ratio (12.00-20.00); Blood Urea Nitrogen 15.5 mg/dL (9.0-27.0); Chloride 102 mmol/L (96-109); Glucose 112 mg/dL (70-110); Potassium 4.8 mmol/L (3.5-5.5); Sodium 143 mmol/L (135-145)
[2023-04-27 16:13] LABS: ALT 12 U/L (8-49); AST 14 U/L (13-35); Albumin 4.9 d/dL (3.8-4.9); Albumin/Globulin Ratio 2.23 Ratio (1.60-3.17); Alkaline Phosphatase 52 U/L (41-126); Calcium 9.7 mg/dL (8.7-10.3); Carbon Dioxide 27.5 mmol/L (21.6-31.8); Globulin 2.2 d/dL (1.6-3.3); Total Bilirubin 0.5 mg/dL (0.3-1.2); Total Protein 7.1 d/dL (6.2-8.2)
[2023-04-27 16:32] LABS: Appearance,Urine Clear (Clear); Bilirubin,Urine Negative (Negative); Blood,Urine Moderate (Negative); Color,Urine Yellow (Yellow); Ketones,Urine Trace (Negative); Nitrite,Urine Negative (Negative); PH, Urine 5.5; Specific Gravity,Urine 1.019 (1.001-1.030); Urobilinogen,Urine 0.2 E.U./DL
[2023-04-27 17:04] LABS: Bacteria,Urine None Seen (None Seen)
== END | disposition home or self-care (01) ==
LOC: LABPAT 11:30
PROVIDERS: ATTEND Orthopaedic Surgery
DX: Z01.812 Encounter for preprocedural laboratory examination (principal); M17.12 Unilateral primary osteoarthritis, left knee
CPT/HCPCS: 80053; 81001; 85025; 85610; 85730; 87070

== ENCOUNTER 2023-05-19 08:16 | Day surgery (SDC) | payer MEDICARE, OTHER ==
[2023-05-12 15:44] VITALS: BMI 30.3
[~2023-05-19 08:16] MED LIST changes: +ACETAMINOPHEN TAB 500 MG TAB PO PRN; -DEXAMETHASONE SOD PHOSPHATE 4 MG/ML 1 ML VIAL IV ONE; +GABAPENTIN 300 MG CAP PO PRN; -HYDROmorphone 0.5 MG/0.5 ML SYRINGE IVP PRN; -LACTATED RINGERS 1,000 ML IV SCH; +MELOXICAM 7.5 MG TAB PO PRN; -ONDANSETRON 4 MG/2 ML VIAL IVP ONE; +TRANEXAMIC 1,000 MG/100ML-NACL 1,000 MG in SALINE 1 100ML.BAG IVPB PRN
[2023-05-19] MEDS ORDERED: LIDOCAINE 1% (10MG/ML) FOR IV START INTRADERMA PRN (08:43)
[2023-05-19] MEDS ORDERED: DEXAMETHASONE SOD PHOSPHATE 4 MG/ML 1 ML VIAL IV ONE (08:43)
[2023-05-19] MEDS ORDERED: ONDANSETRON 4 MG/2 ML VIAL IVP ONE ×2 (08:43→12:20)
[2023-05-19] MEDS ORDERED: LACTATED RINGERS 1,000 ML IV SCH (08:43)
[2023-05-19] MEDS ORDERED: MIDAZOLAM 2 MG/2 ML VIAL IV PRN (08:43)
[2023-05-19] MEDS ORDERED: HYDROmorphone 0.5 MG/0.5 ML SYRINGE IVP PRN ×4 (08:43→09:23)
[2023-05-19 09:19] LABS: Glucose,Whole Blood 115 mg/dL (70-110)
[2023-05-19] MEDS ORDERED: MAGNESIUM HYDROXIDE 2,400 MG/30 ML CUP PO PRN (09:23)
[2023-05-19] MEDS ORDERED: NALOXONE 0.4 MG/ML 1 ML VIAL IV PRN (09:23)
[2023-05-19] MEDS ORDERED: ONDANSETRON 4 MG/2 ML VIAL IVP PRN (09:23)
[2023-05-19] MEDS ORDERED: SODIUM CHLORIDE 0.9% 1,000 ML IV SCH (09:30)
[2023-05-19] MEDS ORDERED: MIDAZOLAM 2 MG/2 ML VIAL IVP ONE (09:32)
[2023-05-19] MEDS ORDERED: TRANEXAMIC 1,000 MG/100ML-NACL PREMIX BAG ONE (09:48)
[2023-05-19] MEDS ORDERED: ePHEDrine 50 MG/ML 1 ML VIAL ONE (09:48)
[2023-05-19] MEDS ORDERED: ROPIVACAINE 5 MG/ML 30 ML VIAL ONE (09:48)
[2023-05-19] MEDS ORDERED: LIDOCAINE 2% INJ 20 MG/ML (2 ML VIAL) ONE (09:48)
[2023-05-19] MEDS ORDERED: PROPOFOL 10 MG/ML 20 ML VIAL IV ONE (09:48)
[2023-05-19] MEDS ORDERED: DEXAMETHASONE SOD PHOSPHATE 4 MG/ML 1 ML VIAL ONE (09:48)
[2023-05-19] MEDS ORDERED: PHENYLEPHRINE-0.9% NACL SYG 1,000 MCG/10 ML SYRINGE ONE (09:48)
[2023-05-19] MEDS ORDERED: fentaNYL (PF) 50 MCG/ML 2 ML AMP ONE (09:48)
[2023-05-19] MEDS ORDERED: ceFAZolin 1,000 MG in SODIUM CHLORIDE 0.9% 1,000 ML IRRIGATION ONE (09:52)
[2023-05-19] MEDS ORDERED: LACTATED RINGERS 1,000 ML IV ONE (10:41)
--- NOTE | 2023-05-19 11:17 | P.OP ---
Date of Procedure: 05/19/23 Preoperative Diagnosis: Severe osteoarthritis left knee Postoperative Diagnosis: Severe osteoarthritis left knee Procedure(s) Performed: Left total knee arthroplasty Implants: [employer] Journey II CR Oxinium cruciate retaining femoral component size 6, left [employer] Journey nonporous tibial baseplate size 4, left [employer] Journey II, XLPE Deep Dished articular insert, size 10 mm, Size 3-4, left [employer] Shannon II resurfacing patellar component, oval, 32 mm All components were cemented using Palacos R bone cement The articulation is Oxinium on polyethylene Anesthesia: JOHNNY Surgeon: Valente Ochoa Shoe Repairer #1: Kaur Goodwin Estimated Blood Loss (ml): 45 Pathology: none sent Condition: stable Disposition: PACU Indications for Procedure: The patient's knee is end-stage, and conservative management has failed. The operation of knee replacement has been discussed at length in the office, as well as potential risks and complications. These are inclusive of, but not limited to: Infection, bleeding, scarring, discomfort, stiffness, blood vessel and nerve damage, need for further surgery, failure to relieve symptoms, persistence, recurrence, or worsening of problems, loosening, dislocation, wear, blood clot, pulmonary embolism, , gait dysfunction, stiffness, and other risks as discussed in the office. Patient elects to proceed and the consent form has been signed. Operative Findings: The operative findings are consistent with severe osteoarthritis of the left knee Description of Procedure: The patient was seen in the preoperative area, the consent was reviewed and the operative site was marked with a skin marker. The patient verified the procedure and the operative site. An adductor canal pain catheter and an iPACK block were placed by anesthesia in the preoperative area. The patient was then brought to the operating room and positioned on the operating room table in the supine position. Preoperative antibiotics and a gram of tranexamic acid were given intravenously. A general anesthetic was administered by the anesthesia department. Care was taken to make sure that all pressure points were adequately padded. A tourniquet was placed on the upper thigh and the lower extremity was prepped with ChloraPrep and draped in usual sterile fashion. A universal time-out was then performed which confirmed the patient's name, surgical site, ALLERGIES, and consent. The lower extremity was then exsanguinated and tourniquet was inflated to 250 mmHg. A standard anterior midline approach to the knee was performed. The skin and subcutaneous tissue were sharply dissected down to the patellar tendon. A medial parapatellar arthrotomy was then performed. The knee was then extended, the patellar was everted, and the knee was flexed. The infra-patellar fat pad was removed in order to enhance exposure. The anterior horns of both menisci were excised, and a release was performed to the posterior medial aspect of the knee. On gross visual inspection, there was complete loss of articular cartilage in the medial and patellofemoral joint spaces. There was also significant cartilage damage in the lateral compartment. There were multiple periarticular osteophytes globally about the knee which were then removed with a Ronguer. The femoral canal was then opened with the 9.5 mm intramedullary drill. The 8 mm intramedullary ady was then inserted into the femoral canal with the distal femoral cutting guide set for 5 of valgus. The distal femoral cutting block was then pinned in place. The intramedullary ady was then removed, and the distal femur was then cut. The cutting block was then removed and the cut was checked for symmetry. The resected bone was then measured to confirm the appropriate distal femoral resection. Next, the sizing guide was then placed and set for 3 external rotation based off of the epicondylar axis and Allons's line. Pins were then placed and the drill holes, and the femur was sized with the sizing stylus. The pins were then removed, and the sizing guide was then removed. The spikes of the appropriate size femoral block was then placed into the predrilled holes, and malleted into place. Two 45 mm pins were then placed into the fixation holes on the cutting block. An nj wing was then used to ensure there would be no notching with the anterior cut. The anterior condyles were cut without notching. The anterior chord cut was then performed, followed by the posterior cut, posterior chamfer cut, and the anterior chamfer cut. The collateral ligaments were protected during the entire process. The cutting block was then removed. Any remaining bone and osteophytes were removed from the femur with a Ronguer. Attention was then directed to the tibia. The remaining ACL was removed with a Ronguer, and the tibia was then gently subluxed forward with a large bent knee retractor. Any remaining menisci were excised. The posterior lateral corner was cauterized in order to coagulate the lateral geniculate artery. The extra medullary tibial cutting guide was then placed, set for the appropriate rotation, slope, and depth of resection. The proximal tibia cutting guide was then pinned in place. Proximal tibia was then cut and sized. A curved osteotome was then used to remove any posterior osteophytes from the distal femur. The femoral trial was placed. A narrow saw blade was then used to remove the anterior intracondylar femoral bone. The CR notch trial was then placed. The tibial trial was placed with the appropriate-sized insert. The knee was able to fully extend and flex to 130 and was stable throughout all range of motion. The knee was then extended and the patella was everted. Patella was then measured, and then using an osteotomy guide, the patella was cut at the appropriate level. The patellar component was sized. The patellar drill guide was placed and the patella was drilled. The patella trial was then placed. The knee was then taken through range of motion with the patella trial and the patella tracked normally using the no thumbs technique. The patella trial was then removed. The knee was then flexed and lug holes were drilled through the femoral trial and the femoral trial was then removed. The tibial was then re- exposed, and the tibial broach guide was then pinned in place after it was set for the appropriate rotation to allow for the most coverage without overhang. The tibia was then reamed and broached. The femoral canal was plugged with autologous bone. The cut surfaces of bone were then irrigated with pulsatile lavage. The knee was also irrigated with Irrisept solution. The components were then opened, the cement was mixed. Cement was placed on the backside of the femoral, tibial, and patellar components. Cement was then applied to the tibial surface and pressurized into the surface using finger pressurization technique. The tibial component was then applied and excess cement was removed after it was impacted securely noted to be flush with the cut surface. In similar fashion, the cement was applied to the cut femoral surface, pressuri zed and using finger pressurization the component was impacted in place. Excess cement was removed. The polyethylene spacer was then implanted and locked into position. Patellar component was then applied in a similar technique and the patellar clamp was used to hold patella in place while the cement hardened. The knee was held in full extension while the cement hardened. Once the cement had fully hardened, the knee was reinspected. Any other cement extrusion was removed the final range of motion testing showed range of motion from 0-130 with excellent stability, both medial and laterally and appropriate alignment of the leg. Patella tracked normally[default value] After the cemented hardened, the tourniquet was released and hemostasis was obtained. A second gram of transexamic acid was given intravenously. The knee was again irrigated. The knee was again taken through range of motion and found to be stable throughout all range of motion of 0-130, and the patella tracked n ormally. The fascia was then closed with 0 Vicryl followed by #2 strata fix suture. The subcutaneous tissue was closed with 3-0 Vicryl and 3-0 strata fix. Exofin glue was used for the skin and placed with the knee in flexion. After the glue had dried, and Optafoam silver impregnated dressing was applied. A lightly compressive dressing was applied using web roll and Jamarcus wrap. Patient was then transferred to the stretcher and taken to recovery room in stable condition. Sponge and needle counts were correct. The chef assistant NETTA Simms was required due the complexity surgery and the need for a skilled patient services assistant. She assisted in positioning, draping, retraction, and closure of the wound.
[2023-05-19 11:39] VITALS: TEMP 96.8
[2023-05-19] MEDS ORDERED: ROPIVACAINE 1,100 MG, SODIUM CHLORIDE 0.9% 500 ML 330 ML, EMPTY PAIN BALL 1 EACH MISCELLANE PRN ×2 (11:44)
[2023-05-19 12:23] LABS: Glucose,Whole Blood 161 mg/dL (70-110)
--- NOTE | 2023-05-19 13:38 | XR ---
EXAMINATION TYPE: XR knee limited LT DATE OF EXAM: 05/19/2023 12:24 PM INDICATION: Patient age:Male; 72 years old; Reason for study: Evaluation for Postop abnormality and alignment; PHH. COMPARISON: None. TECHNIQUE: The Left knee(s) was examined in Frontal, lateral projections. FINDINGS: Status post total knee arthroplasty changes with hardware in appropriate alignment and in tact. No evidence of fracture. Subcutaneous lucencies and lucencies within the joint consistent with surgical changes. IMPRESSION: Status post total knee arthroplasty changes with hardware intact and appropriate alignment. No fractu res identified.
[2023-05-19 13:57] VITALS: BP 147/79; PULSE 87; RESP 18
--- NOTE | 2023-05-19 15:27 | P.ANPRN ---
Procedure Note - Anesthesia - Nerve Block Performed Left Adductor Canal Infusion Time Out Performed: Yes Date of Procedure: 05/19/23 Procedure Start Time: : Procedure Stop Time: : Location of Patient: PreOp Indication: Acute Post-Operative Pain, Requested by Surgeon Sedation Type: Sedate with meaningful contact maintained Preparation: Sterile Prep, Sterile Dressing Position: Supine Catheter: Indwelling Needle Types: Pajunk Needle Gauge: 21 Ultrasound used to visualize needle placement: Yes Ultrasound used to observe medication spread: Yes Blood Aspirated: No Pain Paresthesia on Injection Noted: No Resistance on Injection: Normal Image Stored and Saved: Yes Events: Uneventful and Well Tolerated (ropi .5% 20cc plus dexamethasone 4mg)
--- NOTE | 2023-05-19 15:29 | P.ANPRN ---
Procedure Note - Anesthesia - Nerve Block Performed Left iPack Single Time Out Performed: Yes Date of Procedure: 05/19/23 Procedure Start Time: :43 Procedure Stop Time: :46 Location of Patient: PreOp Indication: Acute Post-Operative Pain, Requested by Surgeon Sedation Type: Sedate with meaningful contact maintained Preparation: Sterile Prep Position: Supine Needle Types: Pajunk Needle Gauge: 21 Ultrasound used to visualize needle placement: Yes Ultrasound used to observe medication spread: Yes Blood Aspirated: No Pain Paresthesia on Injection Noted: No Resistance on Injection: Normal Image Stored and Saved: Yes Events: Uneventful and Well Tolerated (ropi .5% 20cc plus dexamethasone 4mg)
[2023-05-19] MEDS ORDERED: SENNOSIDES-DOCUSATE SODIUM 1 EACH TAB PO SCH (21:00)
[2023-05-20] MEDS ORDERED: RIVAROXABAN 20 MG TAB PO SCH (17:30)
== END 2023-05-19 14:28 | disposition home health service (06) ==
LOC: OR 08:16
PROVIDERS: ATTEND Orthopaedic Surgery
DX: M17.12 Unilateral primary osteoarthritis, left knee (principal); I10 Essential (primary) hypertension; I48.19 Other persistent atrial fibrillation; E11.9 Type 2 diabetes mellitus without complications; E78.5 Hyperlipidemia, unspecified; Z79.82 Long term (current) use of aspirin; Z83.3 Family history of diabetes mellitus; Z86.59 Personal history of other mental and behavioral disorders; Z79.01 Long term (current) use of anticoagulants; Z79.899 Other long term (current) drug therapy
CPT/HCPCS: 97530; 97161; 64999; 64448; 73560; 27447; C1713; C1776; C1751; J2250; J1100; J0690 ×2; J2405; J2795

== ENCOUNTER 2023-08-01 17:17 | Inpatient (IN) | payer MEDICARE, OTHER ==
[2023-08-01] MEDS ORDERED: SODIUM CHLORIDE 0.9% 1,000 ML IV STA (17:56)
--- NOTE | 2023-08-01 18:44 | CT ---
EXAMINATION TYPE: CT brain wo con CT DLP: 1114 mGycm, Automated exposure control for dose reduction was used. DATE OF EXAM: 08/01/2023 6:32 PM COMPARISON: None. CLINICAL INDICATION:Male, 73 years old with history of Neuro deficit, acute, stroke suspected, stroke TECHNIQUE: Brain: Axial CT images of the brain were obtained with coronal and sagittal reformats created and rev iewed. Contrast used: None. Oral contrast used: None. FINDINGS: Brain: Extra-axial spaces: No abnormal extra-axial fluid collections. Ventricular system: Appear dilated in proportion to cerebral atrophy. Cerebral parenchyma: No acute intraparenchymal hemorrhage or mass effect. The ku-white matter int erface appears maintained. Moderate generalized brain atrophy. Moderate hypoattenuating areas are se en within the cerebral white matter, nonspecific but most often seen with chronic microvascular ische alfonso change. Cerebellum: No acute abnormality. Mass effect: No evidence of midline shift. Intracranial vasculature: Atherosclerotic calcifications of the larger arteries near the skull base. Soft tissues: Normal. Scalp dermal calcifications. Calvarium/osseous structures: No depressed skull fracture. Paranasal sinuses and mastoid air cells: Clear Visualized orbits: Orbital contents appear grossly intact. Recommend follow-up as clinically indicated. MRI is more sensitive for detecting acute processes such as infarct, and may be considered if clinically warranted. IMPRESSION: 1. Moderate atrophy and chronic microvascular ischemic white matter changes. 2. No CT evidence of an acute intracranial abnormality.
[2023-08-01 18:51] LABS: Basophils % (A) 0 %; Eosinophils # (A) 0.1 k/uL (0-0.7); Eosinophils % (A) 1 %; HCT 39.5 % (39.0-53.0); HGB 13.4 gm/dL (13.0-17.5); Lymphocytes # (A) 0.9 k/uL (1.0-4.8); Lymphocytes % (A) 9 %; MCH 31.4 pg (25.0-35.0); MCV 92.6 fL (80.0-100.0); Mean Platelet Volume 8.7; Monocytes # (A) 0.7 k/uL (0-1.0); Monocytes % (A) 7 %; Neutrophils # (A) 7.5 k/uL (1.3-7.7); Neutrophils % (A) 81 %; Platelet Count 155 k/uL (150-450); RBC 4.26 m/uL (4.30-5.90); RDW 12.9 % (11.5-15.5); WBC 9.3 k/uL (3.8-10.6)
--- NOTE | 2023-08-01 18:57 | CT ---
EXAMINATION TYPE: CT angio head neck CT DLP: 521.8 mGycm, Automated exposure control for dose reduction was used. DATE OF EXAM: 08/01/2023 6:35 PM COMPARISON: None. CLINICAL INDICATION:Male, 73 years old with history of Neuro deficit, acute, stroke suspected; liset WHITNEY TECHNIQUE: Axially acquired helical CT angiogram of the head and neck was obtained with contrast. Axi al images are supplemented with 3D reconstructions [facility] NASCET criteria used. Contrast used:65 mL of Isovue 370 with IV Contrast, Oral contrast used: None. FINDINGS: CTA HEAD: No evidence of acute intracranial hemorrhage, mass effect, or midline shift. The basilar and vertebral arteries are patent. The left vertebral is dominant. There is calcification of the V1 segment of the left vertebral artery with approximately 50% diameter stenosis. aluminum polisher are pa tent. Calcifications throughout the bilateral carotid siphons, with less than 50% stenosis. MCAs, ACAs, ant erior communicating artery, right posterior communicating artery appear patent. No sizable aneurysm, high-grade stenosis, or major vascular occlusion noted. CTA NECK: Right Carotid System: The common carotid artery and external carotid artery are patent. There is mild/moderate atherosclero tic calcification of the carotid bifurcation/proximal ICA, without hemodynamically significant stenos is. The remaining portions of the internal carotid artery in the neck demonstrate normal size without significant narrowing. Left Carotid System: The common carotid artery and external carotid artery are patent. There is mild/moderate atherosclero tic calcification of the carotid bifurcation/proximal ICA, without hemodynamically significant stenos is. The remaining portions of the internal carotid artery in the neck demonstrate normal size without significant narrowing. Vertebral arteries are patent in the neck without evidence hemodynamically significant stenosis. Left vertebral is dominant. There is a bovine arch configuration with mild calcification along the arch. The origins of the great vessels are patent. No evidence of hemodynamically significant stenosis. Upper thorax: No evidence of an acute abnormality. Mild/moderate multilevel degenerative disc disease throughout the cervical spine with multilevel mild /moderate canal and neural foraminal stenoses. No acute abnormality is seen. Small polyp or mucous re tention cyst in the right sphenoid sinus. IMPRESSION: 1. Mild to moderate atherosclerotic calcification of the bilateral carotid bifurcations in the neck, and siphon portions of the intracranial ICAs, without hemodynamically significant stenosis. 2. No evidence of major arterial occlusion, or aneurysm in the limits of CTA. 3. Left vertebral is dominant. There is calcification of the V1 segment of the left vertebral artery with approximately 50% diameter stenosis.
[2023-08-01 18:59] LABS: INR 1.4 (<1.2); Partial Thromboplastin Time 30.8 sec (22.0-30.0); Prothrombin Time 14.4 sec (10.0-12.5)
[2023-08-01 19:06] LABS: ALT 16 U/L (4-49); AST 17 U/L (17-59); African American GFR (CKD) >90 (>60 ml/min/1.73 sqM); Albumin 4.6 g/dL (3.5-5.0); Alkaline Phosphatase 50 U/L (38-126); Anion Gap 14 mmol/L; Blood Urea Nitrogen 14 mg/dL (9-20); Calcium 9.5 mg/dL (8.4-10.2); Carbon Dioxide 26 mmol/L (22-30); Chloride 100 mmol/L (98-107); Creatine Kinase 45 U/L (55-170); Glucose 127 mg/dL (74-99); Non-African American GFR(CKD) 85 (>60 ml/min/1.73 sqM); Potassium 3.8 mmol/L (3.5-5.1); Sodium 140 mmol/L (137-145); Total Protein 7.1 g/dL (6.3-8.2)
--- NOTE | 2023-08-01 19:18 | ED ---
Neuro HPI - General Chief Complaint: Neuro Symptoms/Deficit Stated Complaint: pt sent for ekg Time Seen by Provider: 08/01/23 17:50 Source: patient, family, RN notes reviewed Mode of arrival: wheelchair Limitations: no limitations - History of Present Illness Is the patient presenting with stroke symptoms?: Yes Last Known Well Date: 07/31/23 Last Known Well Time: 18:00 Initial Comments: 73-year-old male who had the onset between 6 and 7 PM last night with left facial droop and left upper extremity weakness. He denies any trauma no fevers chills nausea vomiting sweats. He denies any prior history of stroke. He does have a history of atrial fibrillation and history of UTI and kidney stones history of low magnesium and low potassium. - Related Data Home Medications: Home Medications Medication Instructions Recorded Confirmed Lovastatin [Mevacor] 40 mg PO HS 12/15/14 08/01/23 Aspirin 81 mg PO DAILY 12/16/14 08/01/23 Finasteride [Proscar] 5 mg PO DAILY 11/12/21 08/01/23 Oxybutynin ER [Ditropan XL] 10 mg PO DAILY 11/12/21 08/01/23 Rivaroxaban [Xarelto] 20 mg PO HS 11/12/21 08/01/23 Tamsulosin HCl [Flomax] 0.4 mg PO BID 11/12/21 08/01/23 amLODIPine BESYLATE 5 mg PO DAILY 11/12/21 08/01/23 lisinopriL [Zestril] 30 mg PO DAILY 12/05/21 08/01/23 metFORMIN HCL ER [Glucophage XR] 1,000 mg PO BID 01/31/22 08/01/23 HYDROcodone/APAP 7.5-325MG [[place] 1 tab PO Q6H PRN 08/01/23 08/01/23 7.5-325] Metoprolol Tartrate [Lopressor] 25 mg PO BID 08/01/23 08/01/23 Allergies/Adverse Reactions: Allergies Allergy/AdvReac Type Severity Reaction Status Date / Time amoxicillin Allergy Unknown Verified 08/01/23 20:03 Childhood Review of Systems ROS Statement: Those systems with pertinent positive or pertinent negative responses have been documented in the HPI. ROS Other: All systems not noted in ROS Statement are negative. General Exam - General Exam Comments Initial Comments: This is a well-developed well-nourished awake alert oriented 4 male Limitations: no limitations General appearance: alert, in no apparent distress Head exam: Present: other (Evidence of left facial asymmetry with forehead sparing.) ENT exam: Present: mucous membranes dry (No stridor JVD or bruits) Neck exam: Present: normal inspection, full ROM, other Respiratory exam: Present: normal lung sounds bilaterally. Absent: respiratory distress, wheezes, rales, rhonchi, stridor Cardiovascular Exam: Present: tachycardia, irregular rhythm GI/Abdominal exam: Present: soft, normal bowel sounds. Absent: distended, tenderness, guarding, rebound, rigid, bruit, pulsatile mass Rectal exam: Present: deferred Extremities exam: Present: normal capillary refill, other (Does have a well- healed scar over the left knee no tenderness). Absent: full ROM Back exam: Present: normal inspection, full ROM. Absent: tenderness Neurological exam: Present: alert, oriented X3, motor sensory deficit (As stated above). Absent: CN II-XII intact Psychiatric exam: Present: normal affect, normal mood Skin exam: Present: warm, dry, intact, other (Crease localized temperature to the dorsal aspect of the distal left forearm some slight hint of erythema). Absent: rash Stroke MDM - Lab Data Result diagrams: 08/01/23 18:08 08/01/23 18:08 Lab Results 08/01/23 08/01/23 08/01/23 Range/Units 18:08 18:08 18:08 WBC 9.3 (3.8-10.6) k/uL RBC 4.26 L (4.30-5.90) m/uL Hgb 13.4 (13.0-17.5) gm/dL Hct 39.5 (39.0-53.0) % MCV 92.6 (80.0-100.0) fL MCH 31.4 (25.0-35.0) pg MCHC 34.0 (31.0-37.0) g/dL RDW 12.9 (11.5-15.5) % Plt Count 155 (150-450) k/uL MPV 8.7 Neutrophils % 81 % Lymphocytes % 9 % Monocytes % 7 % Eosinophils % 1 % Basophils % 0 % Neutrophils # 7.5 (1.3-7.7) k/uL Lymphocytes # 0.9 L (1.0-4.8) k/uL Monocytes # 0.7 (0-1.0) k/uL Eosinophils # 0.1 (0-0.7) k/uL Basophils # 0.0 (0-0.2) k/uL PT 14.4 H (10.0-12.5) sec INR 1.4 H (<1.2) APTT 30.8 H (22.0-30.0) sec Sodium 140 (137-145) mmol/L Potassium 3.8 (3.5-5.1) mmol/L Chloride 100 (98-107) mmol/L Carbon Dioxide 26 (22-30) mmol/L Anion Gap 14 mmol/L BUN 14 (9-20) mg/dL Creatinine 0.87 (0.66-1.25) mg/dL Est GFR (CKD-EPI)AfAm >90 (>60 ml/min/1.73 sqM) Est GFR (CKD-EPI)NonAf 85 (>60 ml/min/1.73 sqM) Glucose 127 H (74-99) mg/dL Calcium 9.5 (8.4-10.2) mg/dL Magnesium 1.0 L (1.6-2.3) mg/dL Total Bilirubin 1.0 (0.2-1.3) mg/dL AST 17 (17-59) U/L ALT 16 (4-49) U/L Alkaline Phosphatase 50 (38-126) U/L Creatine Kinase 45 L (55-170) U/L Troponin I (0.000-0.034) ng/mL Total Protein 7.1 (6.3-8.2) g/dL Albumin 4.6 (3.5-5.0) g/dL 08/01/23 Range/Units 18:08 WBC (3.8-10.6) k/uL RBC (4.30-5.90) m/uL Hgb (13.0-17.5) gm/dL Hct (39.0-53.0) % MCV (80.0-100.0) fL MCH (25.0-35.0) pg MCHC (31.0-37.0) g/dL RDW (11.5-15.5) % Plt Count (150-450) k/uL MPV Neutrophils % % Lymphocytes % % Monocytes % % Eosinophils % % Basophils % % Neutrophils # (1.3-7.7) k/uL Lymphocytes # (1.0-4.8) k/uL Monocytes # (0-1.0) k/uL Eosinophils # (0-0.7) k/uL Basophils # (0-0.2) k/uL PT (10.0-12.5) sec INR (<1.2) APTT (22.0-30.0) sec Sodium (137-145) mmol/L Potassium (3.5-5.1) mmol/L Chloride (98-107) mmol/L Carbon Dioxide (22-30) mmol/L Anion Gap mmol/L BUN (9-20) mg/dL Creatinine (0.66-1.25) mg/dL Est GFR (CKD-EPI)AfAm (>60 ml/min/1.73 sqM) Est GFR (CKD-EPI)NonAf (>60 ml/min/1.73 sqM) Glucose (74-99) mg/dL Calcium (8.4-10.2) mg/dL Magnesium (1.6-2.3) mg/dL Total Bilirubin (0.2-1.3) mg/dL AST (17-59) U/L ALT (4-49) U/L Alkaline Phosphatase (38-126) U/L Creatine Kinase (55-170) U/L Troponin I <0.012 (0.000-0.034) ng/mL Total Protein (6.3-8.2) g/dL Albumin (3.5-5.0) g/dL - NIH Stroke Scale 1a. Level of Consciousness: (0) alert 1b. LOC Questions: (0) answers correctly 1c. LOC Commands: (0) performs tasks correctly 2. Best Gaze: (0) normal 3. Visual: (0) no visual loss 4. Facial Palsy: (1) minor paralysis 5a. Motor Arm Left: (2) some gravity effort 5b. Motor Arm Right: (0) no drift 6a. Motor Leg Left: (0) no drift 6b. Motor Leg Right: (0) no drift 7. Limb Ataxia: (0) absent 8. Sensory: (0) normal 9. Best Language: (0) no aphasia 10. Dysarthria: (0) normal 11. Extinction/Inattention: (0) no abnormality - Medical Decision Making Patient was a code stroke upon arrival at almost 24 hours from the onset. I did discuss the case with Dr. Hampton patient is not a candidate for intervention at this time. I did discuss the case with Dr. Cruz who did come see the patient in emergency department. Patient does have a fever and apparent beginnings of cellulitis of left distal dorsal forearm. Patient will be started on clindamycin for this. Neurology will be consulted patient be admitted.Was pt. sent in by a medical professional or institution (, PA, [employer], urgent care, hospital, or usp...) When possible be specific @ -No Did you speak to anyone other than the patient for history (EMS, parent, family, police, friend...)? What history was obtained from this source @ -Her medics upon arrival Did you review nursing and triage notes (agree or disagree)? Why? @ -I reviewed and agree with nursing and triage notes Were old charts reviewed (outside hosp., previous admission, EMS record, old EKG, old radiological studies, urgent care reports/EKG's, usp records)? Report findings @ -No old charts were reviewed Differential Diagnosis (chest pain, altered mental status, abdominal pain women, abdominal pain men, vaginal bleeding, weakness, fever, dyspnea, syncope, headache, dizziness, GI bleed, back pain, seizure, CVA, palpatations, mental health, musculoskeletal)? @ -CVA EKG interpreted by me (3pts min.). @ -As above EKG showed atrial flutter with a rate of 93 WA interval and m easurable QRS 98 QT since QTC 338/[address] configuration X-rays interpreted by me (1pt min.). @ -Turbinated by me no acute process CT interpreted by me (1pt min.). @ -Interpreted by me CT plane brain no acute process CT angios shows noncritical stenoses no acute obstruction U/S interpreted by me (1pt. min.). @ -None done What testing was considered but not performed or refused? (CT, X-rays, U/S, labs)? Why? @ -None What meds were considered but not given or refused? Why? @ -None Did you discuss the management of the patient with other professionals (professionals i.e. , PA, [employer], lab, RT, psych nurse, professor of social work, middle school science teacher, teacher, electoral officer, returned case inspector)? Give summary @ -To george and Dr. Cruz Was smoking cessation discussed for >3mins.? @ -No Was critical care preformed (if so, how long)? @ -39 minutes Were there social determinants of health that impacted care today? How? (Homelessness, low income, unemployed, alcoholism, drug addiction, trans portation, low edu. Level, literacy, decrease access to med. care, long-term, rehab)? @ -No Was there de-escalation of care discussed even if they declined (Discuss DNR or withdrawal of care, Hospice)? DNR status @ -No What co-morbidities impacted this encounter? (DM, HTN, Smoking, COPD, CAD, Cancer, CVA, ARF, Chemo, Hep., AIDS, mental health diagnosis, sleep apnea, morbid obesity)? @ -Drove flutter kidney stones, history UTI history of hypomagnesemia and hypokalemia Was patient admitted / discharged? Hospital course, mention meds given and route, prescriptions, significant lab abnormalities, going to OR and other pertinent info. @ -hospital course it was admitted for inpatient evaluation and treatment. The patient will be seen by neurology and IV magnesium was given. IV antibiotics for presumed cellulitis left upper extremity Undiagnosed new problem with uncertain prognosis? @ -CVA, cellulitis Drug Therapy requiring intensive monitoring for toxicity (Heparin, Nitro, Insulin, Cardizem)? @ -No Were any procedures done? @ -No Diagnosis/symptom? @ -Acute CVA, febrile illness, cellulitis left upper extremity hypomagnesemia Acute, or Chronic, or Acute on Chronic? @ -Acute Uncomplicated (without systemic symptoms) or Complicated (systemic symptoms)? @ -default Side effects of treatment? @ -No Exacerbation, Progression, or Severe Exacerbation? @ -No Poses a threat to life or bodily function? How? (Chest pain, [place], [place], pneumonia, PE, COPD, DKA, ARF, appy, cholecystitis, CVA, Diverticulitis, Homicidal, Suicidal, threat to staff... and all critical care pts) @ -Potential, CVA, febrile illness, hypomagnesemia - Radiology Data interpreted by me: CT shows no evidence of acute process on plain brain CT angios shows less than critical occlusions but no obstruction. Chest x-ray unremarkable x-ray left wrist no evidence of fracture or - EKG Data -: EKG Interpreted by Me (EKG interpreted by me atrial flutter rate 93 QRS 98 daily since QTC 3:30/38) Past Medical History Past Medical History: Atrial Fibrillation, Cancer, Chest Pain / Angina, Diabetes Mellitus, Hyperlipidemia, Hypertension, Osteoarthritis (OA), Prostate Disorder Additional Past Medical History / Comment(s): kidney stones,bone spur right hip History of Any Multi-Drug Resistant Organisms: None Reported Past Surgical History: Orthopedic Surgery, Tonsillectomy Additional Past Surgical History / Comment(s): Carpal Tunnel Release, RT KNEE ARTHROSOCPY Past Anesthesia/Blood Transfusion Reactions: No Reported Reaction Additional Past Anesthesia/Blood Transfusion Reaction / Comment(s): no hx blood transfusion Past Psychological History: No Psychological Hx Reported Smoking Status: Former smoker Past Alcohol Use History: Occasional Past Drug Use History: None Reported - Past Family History Mother Family Medical History: AFIB Additional Family Medical History / Comment(s): States that his mother from "gangrene of the stomach." Father Family Medical History: AICD/Pacemaker, Myocardial Infarction ([place]) Additional Family Medical History / Comment(s): pacer Brother(s) Family Medical History: AFIB Sister(s) Family Medical History: AFIB Course Vital Signs 08/01/23 08/01/23 08/01/23 17:28 17:44 18:00 Temperature 98.2 F 100.1 F H 100.5 F H Pulse Rate 108 H 105 H 89 Respiratory 18 18 18 Rate Blood Pressure 125/56 134/89 138/90 O2 Sat by Pulse 99 96 Oximetry 08/01/23 08/01/23 08/01/23 18:15 18:30 19:01 Temperature 100.8 F H 101 F H Pulse Rate 94 89 86 Respiratory 18 18 18 Rate Blood Pressure 93/56 148/97 153/89 O2 Sat by Pulse 96 95 96 Oximetry 08/01/23 20:00 Temperature Pulse Rate 102 H Respiratory 16 Rate Blood Pressure 129/91 O2 Sat by Pulse 96 Oximetry - Reevaluation(s) Reevaluation #1: 08/01/23 20:36 The patient reevaluation patient reveals no change in clinical status status he did however did have elevated temperature. Critical Care Time Critical Care Time: Yes Total Critical Care Time: 39 Disposition Clinical Impression: Cerebrovascular accident (CVA), Febrile illness, acute, Cellulitis, Hypomagnesemia Disposition: ADMITTED IP TO THIS HOSP Condition: Fair Referrals: Dylan Peguero MD [Primary Care Provider] - 1-2 days Decision Date: 08/01/23 Decision Time: 20:00
[2023-08-01] MEDS: MAGNESIUM SULFATE-D5W PMX 1 GM in DEXTROSE/WATER 1 100ML.BAG IVPB SCH ×2 (19:48→20:39)
--- NOTE | 2023-08-01 20:34 | XR ---
EXAMINATION TYPE: XR chest 2V DATE OF EXAM: 08/01/2023 6:50 PM CLINICAL INDICATION:Male, 73 years old with history of altered mental status; [facility] COMPARISON: 01/31/2022 TECHNIQUE: XR chest 2V Frontal and lateral views of the chest. FINDINGS: Lines/Tubes: EKG leads overlie the chest. No indwelling lines are seen. Lungs/Pleura: There is no evidence of pleural effusion, focal consolidation, or pneumothorax. Lung v olumes are low. Pulmonary vascularity: Unremarkable. Heart/mediastinum: Heart size appears prominent and likely exaggerated by the low lung volumes. Unre markable mediastinal contours. Musculoskeletal: No acute osseous pathology. Mild/moderate degenerative changes of the shoulders and spine. Partial eventration is noted along the right hemidiaphragm. Other findings: None IMPRESSION: Low lung volume exam with hypoventilatory changes. Otherwise no acute finding.
--- NOTE | 2023-08-01 20:36 | XR ---
EXAMINATION TYPE: XR wrist complete LT DATE OF EXAM: 08/01/2023 6:55 PM CLINICAL INDICATION:Male, 73 years old with history of Pain; no known injury COMPARISON: None TECHNIQUE: The left wrist was examined in frontal, navicular, lateral, and oblique views. FINDINGS: Moderate osteoarthritic change at the basal joint of the thumb, with slight lateral subluxa tion of the base of the first metacarpal. Otherwise mild degenerative changes are seen. No evidence o f an acute fracture lucency or dislocation. No abnormal widening of the scapholunate interspace. Unre markable soft tissues. IMPRESSION: No acute osseous pathology. Degenerative changes as above.
[2023-08-01] MEDS ORDERED: CLINDAMYCIN 600 MG in DEXTROSE 5% IN WATER 50 ML IVPB STA ×2 (20:51)
--- NOTE | 2023-08-01 20:53 | ED ---
Medical Decision Making - Lab Data Result diagrams: 08/01/23 18:08 08/01/23 18:08 Lab Results 08/01/23 08/01/23 08/01/23 Range/Units 18:08 18:08 18:08 WBC 9.3 (3.8-10.6) k/uL RBC 4.26 L (4.30-5.90) m/uL Hgb 13.4 (13.0-17.5) gm/dL Hct 39.5 (39.0-53.0) % MCV 92.6 (80.0-100.0) fL MCH 31.4 (25.0-35.0) pg MCHC 34.0 (31.0-37.0) g/dL RDW 12.9 (11.5-15.5) % Plt Count 155 (150-450) k/uL MPV 8.7 Neutrophils % 81 % Lymphocytes % 9 % Monocytes % 7 % Eosinophils % 1 % Basophils % 0 % Neutrophils # 7.5 (1.3-7.7) k/uL Lymphocytes # 0.9 L (1.0-4.8) k/uL Monocytes # 0.7 (0-1.0) k/uL Eosinophils # 0.1 (0-0.7) k/uL Basophils # 0.0 (0-0.2) k/uL PT 14.4 H (10.0-12.5) sec INR 1.4 H (<1.2) APTT 30.8 H (22.0-30.0) sec Sodium 140 (137-145) mmol/L Potassium 3.8 (3.5-5.1) mmol/L Chloride 100 (98-107) mmol/L Carbon Dioxide 26 (22-30) mmol/L Anion Gap 14 mmol/L BUN 14 (9-20) mg/dL Creatinine 0.87 (0.66-1.25) mg/dL Est GFR (CKD-EPI)AfAm >90 (>60 ml/min/1.73 sqM) Est GFR (CKD-EPI)NonAf 85 (>60 ml/min/1.73 sqM) Glucose 127 H (74-99) mg/dL Calcium 9.5 (8.4-10.2) mg/dL Magnesium 1.0 L (1.6-2.3) mg/dL Total Bilirubin 1.0 (0.2-1.3) mg/dL AST 17 (17-59) U/L ALT 16 (4-49) U/L Alkaline Phosphatase 50 (38-126) U/L Creatine Kinase 45 L (55-170) U/L Troponin I (0.000-0.034) ng/mL Total Protein 7.1 (6.3-8.2) g/dL Albumin 4.6 (3.5-5.0) g/dL 08/01/23 Range/Units 18:08 WBC (3.8-10.6) k/uL RBC (4.30-5.90) m/uL Hgb (13.0-17.5) gm/dL Hct (39.0-53.0) % MCV (80.0-100.0) fL MCH (25.0-35.0) pg MCHC (31.0-37.0) g/dL RDW (11.5-15.5) % Plt Count (150-450) k/uL MPV Neutrophils % % Lymphocytes % % Monocytes % % Eosinophils % % Basophils % % Neutrophils # (1.3-7.7) k/uL Lymphocytes # (1.0-4.8) k/uL Monocytes # (0-1.0) k/uL Eosinophils # (0-0.7) k/uL Basophils # (0-0.2) k/uL PT (10.0-12.5) sec INR (<1.2) APTT (22.0-30.0) sec Sodium (137-145) mmol/L Potassium (3.5-5.1) mmol/L Chloride (98-107) mmol/L Carbon Dioxide (22-30) mmol/L Anion Gap mmol/L BUN (9-20) mg/dL Creatinine (0.66-1.25) mg/dL Est GFR (CKD-EPI)AfAm (>60 ml/min/1.73 sqM) Est GFR (CKD-EPI)NonAf (>60 ml/min/1.73 sqM) Glucose (74-99) mg/dL Calcium (8.4-10.2) mg/dL Magnesium (1.6-2.3) mg/dL Total Bilirubin (0.2-1.3) mg/dL AST (17-59) U/L ALT (4-49) U/L Alkaline Phosphatase (38-126) U/L Creatine Kinase (55-170) U/L Troponin I <0.012 (0.000-0.034) ng/mL Total Protein (6.3-8.2) g/dL Albumin (3.5-5.0) g/dL Disposition Clinical Impression: Cerebrovascular accident (CVA), Febrile illness, acute, Cellulitis, Hypomagnesemia, Atrial flutter Disposition: ADMITTED IP TO THIS HOSP Condition: Fair Referrals: Dylan Peguero MD [Primary Care Provider] - 1-2 days
[2023-08-01] MEDS ORDERED: ATORVASTATIN 10 MG TAB PO SCH (21:00)
[2023-08-01] MEDS ORDERED: metFORMIN 500 MG TAB PO SCH (21:00)
[2023-08-01] MEDS: TAMSULOSIN 0.4 MG CAP.ER.24H PO SCH (21:40)
[2023-08-01] MEDS: FAMOTIDINE 20 MG TAB PO SCH (21:40)
[2023-08-01] MEDS: RIVAROXABAN 20 MG TAB PO SCH (21:41)
[2023-08-01] MEDS: METOPROLOL TARTRATE 25 MG TAB PO SCH (21:41)
[2023-08-01] MEDS: SODIUM CHLORIDE 0.9% 1,000 ML IV SCH (21:47)
[2023-08-01] MEDS: HYDROcodone/APAP 7.5-325MG 1 EACH TAB PO PRN (22:42)
[2023-08-02] MEDS ORDERED: ATORVASTATIN 80 MG TAB PO STA (00:30)
--- NOTE | 2023-08-02 00:32 | P.HPIM ---
History of Present Illness H&P Date: 08/01/23 Patient is a 71-year-old male with a PMH of A. jimmie on Xarelto, hypertension, type II DM, hyperlipidemia who presents to the emergency room with complaints of left facial droop, left-sided weakness and left arm pain and swelling. History supplemented by the patient's at the bedside. Patient reports that he suddenly developed left upper and lower extremity weakness along with left facial droop yesterday evening along with gradually worsening left arm pain. He did not think much of it and upon waking up this morning, he noted not being able to grasp most items and severe pain of the left forearm overlying an area of redness and warmth. Patient denies injury to his left forearm. Does report some drooling from the left side of his mouth. Denied visual disturbances, headaches, chest discomfort, shortness of breath, cough, nausea, vomiting, abdominal pain, diarrhea. In the emergency room, the patient had a T-max of 101F. CT brain and CT angiogram head and neck were unremarkable. Chest x-ray was unremarkable. Left wrist x-ray was also unremarkable. EKG revealed a flutter at 93 bpm. Laboratory evaluation also revealed magnesium 1.0, INR 1.4, glucose 127. Case was discussed with neuro analytic manager and deemed to not be candidate for TPA due to its prolonged duration from onset ED documentation reviewed and case discussed with ED provider. Review of systems: Pertinent positives and negatives as discussed in HPI, a complete review of systems was performed and all other systems are negative. Physical examination: Vital signs reviewed General: non toxic, no distress, appears at stated age, overweight Derm: R distal forearm erythema and warmth with tenderness, no unusual rashes/lesions, warm Head: atraumatic, normocephalic, symmetric Eyes: EOMI, no lid lag, anicteric sclera, pupils equal round reactive to light ENT: Nose and ears atraumatic Neck: No cervical lymphadenopathy, trachea midline, supple Mouth: no lip lesion, mucus membranes moist Cardiovascular: S1S2 reg, no murmur, positive dorsalis pedis pulse bilateral, no edema Lungs: CTA bilateral, no rhonchi, no rales, no accessory muscle use Abdominal: soft, nontender to palpation, no guarding Ext: RUE and RLE strength 5/5, LUE and LLE strength 3/5, no gross muscle atrophy, no contractures, Neuro: Left facial droop with all remaining cranial nerves grossly intact Psych: Alert, oriented, appropriate affect Assessment: Acute CVA Left distal forearm cellulitis Hypomagnesemia Chronic conditions: A. fib hypertension, type II DM, hyperlipidemia Imaging: CT brain and CT angiogram head and neck were unremarkable. Chest x-ray was unremarkable. Left wrist x-ray was also unremarkable. EKG revealed a flutter at 93 bpm. Data Review: Laboratory evaluation also revealed magnesium 1.0, INR 1.4, glucose 127. Plan: Neurology consult Neuro checks Echocardiogram Continue with clindamycin for left forearm cellulitis Continue with aspirin, statin, Xarelto PT and [employer] consult Fall precautions Continue the home meds Insulin sliding scale DVT prophylaxis: Xarelto The patient is admitted with an anticipated greater than 2 midnight stay for evaluation of acute CVA CODE STATUS: Full Code Discussed with: Patient Anticipated discharge place: Home Past Medical History Past Medical History: Atrial Fibrillation, Cancer, Chest Pain / Angina, Diabetes Mellitus, Hyperlipidemia, Hypertension, Osteoarthritis (OA), Prostate Disorder Additional Past Medical History / Comment(s): kidney stones,bone spur right hip History of Any Multi-Drug Resistant Organisms: None Reported Past Surgical History: Orthopedic Surgery, Tonsillectomy Additional Past Surgical History / Comment(s): Carpal Tunnel Release, RT KNEE ARTHROSOCPY Past Anesthesia/Blood Transfusion Reactions: No Reported Reaction Additional Past Anesthesia/Blood Transfusion Reaction / Comment(s): no hx blood transfusion Past Psychological History: No Psychological Hx Reported Smoking Status: Former smoker Past Alcohol Use History: Occasional Additional Past Alcohol Use History / Comment(s): STARTED SMOKING AT AGE 13- SMOKED 1 PPD QUIT 40 YEARS AGO THEN STARTED TO CHEW-quit chewing tobacco 2018 approx Past Drug Use History: None Reported - Past Family History Mother Family Medical History: AFIB Additional Family Medical History / Comment(s): States that his mother from "gangrene of the stomach." Father Family Medical History: AICD/Pacemaker, Myocardial Infarction ([place]) Additional Family Medical History / Comment(s): pacer Brother(s) Family Medical History: AFIB Sister(s) Family Medical History: AFIB Medications and Allergies Home Medications Medication Instructions Recorded Confirmed Type Lovastatin [Mevacor] 40 mg PO HS 12/15/14 08/01/23 History Aspirin 81 mg PO DAILY 12/16/14 08/01/23 History Finasteride [Proscar] 5 mg PO DAILY 11/12/21 08/01/23 History Oxybutynin ER [Ditropan XL] 10 mg PO DAILY 11/12/21 08/01/23 History Rivaroxaban [Xarelto] 20 mg PO HS 11/12/21 08/01/23 History Tamsulosin HCl [Flomax] 0.4 mg PO BID 11/12/21 08/01/23 History amLODIPine BESYLATE 5 mg PO DAILY 11/12/21 08/01/23 History lisinopriL [Zestril] 30 mg PO DAILY 12/05/21 08/01/23 History metFORMIN HCL ER [Glucophage XR] 1,000 mg PO BID 01/31/22 08/01/23 History HYDROcodone/APAP 7.5-325MG [[place] 1 tab PO Q6H PRN 08/01/23 08/01/23 History 7.5-325] Metoprolol Tartrate [Lopressor] 25 mg PO BID 08/01/23 08/01/23 History Allergies Allergy/AdvReac Type Severity Reaction Status Date / Time amoxicillin Allergy Unknown Verified 08/01/23 20:03 Childhood Physical Exam Vitals: Vital Signs Temp Pulse Pulse Resp BP BP Pulse Ox 08/01/23 22:00 98.2 F 103 H 18 147/93 97 08/01/23 21:47 98 16 146/95 95 08/01/23 20:00 102 H 16 129/91 96 08/01/23 19:01 86 18 153/89 96 08/01/23 18:30 101 F H 89 18 148/97 95 08/01/23 18:15 100.8 F H 94 18 93/56 96 08/01/23 18:00 100.5 F H 89 18 138/90 96 08/01/23 17:44 100.1 F H 105 H 18 134/89 08/01/23 17:28 98.2 F 108 H 18 125/56 99 Intake and Output 08/01/23 08/01/23 08/02/23 14:59 22:59 06:59 Intake Total 540 Output Total 200 Balance 340 Intake: Oral 540 Output: Urine 200 Other: Voiding Method Urinal Weight 79.832 kg Results CBC & Chem 7: 08/01/23 18:08 08/01/23 18:08 Labs: Abnormal Lab Results - Last 24 Hours (Table) 08/01/23 08/01/23 08/01/23 Range/Units 18:08 18:08 18:08 RBC 4.26 L (4.30-5.90) m/uL Lymphocytes # 0.9 L (1.0-4.8) k/uL PT 14.4 H (10.0-12.5) sec INR 1.4 H (<1.2) APTT 30.8 H (22.0-30.0) sec Glucose 127 H (74-99) mg/dL Magnesium 1.0 L (1.6-2.3) mg/dL Creatine Kinase 45 L (55-170) U/L Thrombosis Risk Factor Assmnt - Choose All That Apply Each Factor Represents 1 point: Obesity (BMI >25) Each Risk Factor Represents 2 Points: Age 61-74 years Each Risk Factor Represents 5 Points: Stroke (< 1 month) Thrombosis Risk Factor Assessment Total Risk Factor Score: 8 Thrombosis Risk Factor Assessment Level: High Risk
[2023-08-02] MEDS: CLINDAMYCIN 300 MG in DEXTROSE 5% IN WATER 50 ML IVPB SCH ×6 (05:15→20:27)
[2023-08-02 06:07] LABS: Glucose,Whole Blood 118 mg/dL (70-110)
[2023-08-02] MEDS: INSULIN ASPART (NovoLOG) 100 UNIT/ML VIAL SQ SCH ×4 (06:16→20:28)
[2023-08-02] MEDS: METOPROLOL TARTRATE 25 MG TAB PO SCH ×2 (08:20→20:27)
[2023-08-02] MEDS: OXYBUTYNIN 10 MG TAB.ER.24 PO SCH (08:20)
[2023-08-02] MEDS: TAMSULOSIN 0.4 MG CAP.ER.24H PO SCH ×2 (08:20→20:27)
[2023-08-02] MEDS: FAMOTIDINE 20 MG TAB PO SCH ×2 (08:20→20:28)
[2023-08-02] MEDS: FINASTERIDE 5 MG TAB PO SCH (08:20)
[2023-08-02] MEDS: lisinopriL 10 MG TAB PO SCH (08:20)
[2023-08-02] MEDS: amLODIPine 5 MG TAB PO SCH (08:20)
[2023-08-02] MEDS: CLOPIDOGREL 75 MG TAB PO SCH (08:20)
[2023-08-02] MEDS: SODIUM CHLORIDE 0.9% 1,000 ML IV SCH ×2 (08:27→17:57)
[2023-08-02] MEDS ORDERED: ASPIRIN 81 MG PO SCH (09:00)
[2023-08-02] MEDS ORDERED: ASPIRIN 325 MG TAB PO SCH (09:00)
[2023-08-02 10:15] LABS: Chol/HDL Ratio 2.59 Ratio; LDL Cholesterol,Calculated 57.8 mg/dL (0.0-131.0)
[2023-08-02 11:35] LABS: Glucose,Whole Blood 113 mg/dL (70-110)
--- NOTE | 2023-08-02 12:43 | P.CNNES ---
History of Present Illness Consult date: 08/02/23 Requesting physician: Dylan Ramirez Reason for Consult: stroke, tia History of Present Illness: this is a 73-year-old gentleman with history of A. fib on Xarelto as well as is on aspirin, diabetes mellitus, hypertension, hypercholesterolemia who presented emergency department because of the left arm weakness at. Patient stated that the he felt his symptoms began 2 days ago. Patient denies of any difficulty getting his words out, any word finding difficulty, any numbness in the left upper. He does have residual left lower extremity weakness from left knee replacement. He denies any history of stroke. He is compliant taking his Xarelto daily.she denies of any fever recently. Denies of any redness of the left upper extremity. Some of the workup during his hospital visit consisted of: Lipid panel is triglyceride 122, cholesterol 134, LDLs 57 and HDL 61 Initial serum glucose is 127. Magnesium is 1.0. CT of the head is reported as moderate atrophy and chronic microvascular ischemic white matter changes. No CT evidence for acute intracranial abnormality. CT angiography of the head and neck is reported as mild to moderate of the sclerotic calcification of bilateral carotid the bifurcation in the neck and siphons portions of the intracranial ICA without hemodynamic significant stenosis. No evidence of major arterial occlusion or aneurysm and the limits of CTA. Left vertebral is dominant. There is calcification of the P1 segment of the left vertebral artery with approximately 50% diameter stenosis. EKG is reported as atrial flutter/tachycardia. the ED team felt the patient has presumed cellulitis of the left upper extremity and placed him on IV antibiotic. Review of Systems positive and negative as per HPI. Past Medical History Past Medical History: Atrial Fibrillation, Cancer, Chest Pain / Angina, Diabetes Mellitus, Hyperlipidemia, Hypertension, Osteoarthritis (OA), Prostate Disorder Additional Past Medical History / Comment(s): kidney stones,bone spur right hip History of Any Multi-Drug Resistant Organisms: None Reported Past Surgical History: Orthopedic Surgery, Tonsillectomy Additional Past Surgical History / Comment(s): Carpal Tunnel Release, RT KNEE ARTHROSOCPY Past Anesthesia/Blood Transfusion Reactions: No Reported Reaction Additional Past Anesthesia/Blood Transfusion Reaction / Comment(s): no hx blood transfusion Past Psychological History: No Psychological Hx Reported Smoking Status: Former smoker Past Alcohol Use History: Occasional Additional Past Alcohol Use History / Comment(s): STARTED SMOKING AT AGE 13- SMOKED 1 PPD QUIT 40 YEARS AGO THEN STARTED TO CHEW-quit chewing tobacco 2018 approx Past Drug Use History: None Reported - Past Family History Mother Family Medical History: AFIB Additional Family Medical History / Comment(s): States that his mother from "gangrene of the stomach." Father Family Medical History: AICD/Pacemaker, Myocardial Infarction ([place]) Additional Family Medical History / Comment(s): pacer Brother(s) Family Medical History: AFIB Sister(s) Family Medical History: AFIB Medications and Allergies Home Medications Medication Instructions Recorded Confirmed Type Lovastatin [Mevacor] 40 mg PO HS 12/15/14 08/01/23 History Aspirin 81 mg PO DAILY 12/16/14 08/01/23 History Finasteride [Proscar] 5 mg PO DAILY 11/12/21 08/01/23 History Oxybutynin ER [Ditropan XL] 10 mg PO DAILY 11/12/21 08/01/23 History Rivaroxaban [Xarelto] 20 mg PO HS 11/12/21 08/01/23 History Tamsulosin HCl [Flomax] 0.4 mg PO BID 11/12/21 08/01/23 History amLODIPine BESYLATE 5 mg PO DAILY 11/12/21 08/01/23 History lisinopriL [Zestril] 30 mg PO DAILY 12/05/21 08/01/23 History metFORMIN HCL ER [Glucophage XR] 1,000 mg PO BID 01/31/22 08/01/23 History HYDROcodone/APAP 7.5-325MG [[place] 1 tab PO Q6H PRN 08/01/23 08/01/23 History 7.5-325] Metoprolol Tartrate [Lopressor] 25 mg PO BID 08/01/23 08/01/23 History Allergies Allergy/AdvReac Type Severity Reaction Status Date / Time amoxicillin Allergy Unknown Verified 08/01/23 20:03 Childhood Physical Examination - Vital Signs Vital Signs: Vital Signs Temp Pulse Pulse Resp BP BP Pulse Ox 08/02/23 11:38 77 18 122/77 97 08/02/23 08:17 97.9 F 90 17 130/80 97 08/02/23 03:15 98.4 F 98 18 136/79 96 08/01/23 22:00 98.2 F 103 H 18 147/93 97 08/01/23 21:47 98 16 146/95 95 08/01/23 20:00 102 H 16 129/91 96 08/01/23 19:01 86 18 153/89 96 08/01/23 18:30 101 F H 89 18 148/97 95 08/01/23 18:15 100.8 F H 94 18 93/56 96 08/01/23 18:00 100.5 F H 89 18 138/90 96 08/01/23 17:44 100.1 F H 105 H 18 134/89 08/01/23 17:28 98.2 F 108 H 18 125/56 99 Intake and Output 08/01/23 08/02/23 08/02/23 22:59 06:59 14:59 Intake Total 540 118 Output Total 200 100 Balance 340 18 Intake: Oral 540 118 Output: Urine 200 100 Other: Voiding Method Urinal Urinal Urinal # Voids 1 # Bowel Movements 1 Weight 79.832 kg General: Lying in bed and is not in acute distress. HENT: Supple neck. Neuro: The patient is awake, alert, oriented to self, place and time. Is following simple commands. No aphasia or neglect. The pupils are round, equal and reactive to light and accommodation. Visual meneses are full to confrontation throughout. Extraocular movement is intact no nystagmus is noted. Facial sensation is normal to touch throughout. The facial strength is mild left lower facial weakness. Hearing is mildly decreased bilaterally to hand rub. Tongue is midline and moved [id number] without any difficulty. No dysarthria is noted. Shoulder shrug is normal bilaterally. Motor: Limited because of cooperation. The strength is unable to assess left upper since resisted but only extended the finger 2 of left hand and otherwise no movement. The left lower had showed some resistance but not as much as upper and had at least 4+ and stated old. The right sided is 5/5. Could not assess tone because of his resistance while bulk seems normal. Cerebellum: Normal finger to nose on right but left is weak. Sensation: Would not allow me to touch his left side to assessment. Reflexes (right/left): Refused to be assessed especially left. While right seems 2+ Results - Laboratory Findings CBC and BMP: 08/01/23 18:08 08/01/23 18:08 Abnormal Lab Findings: Abnormal Labs 08/01/23 08/01/23 08/01/23 18:08 18:08 18:08 RBC 4.26 L Lymphocytes # 0.9 L PT 14.4 H INR 1.4 H APTT 30.8 H Glucose 127 H POC Glucose (mg/dL) Magnesium 1.0 L Creatine Kinase 45 L 08/02/23 08/02/23 06:06 11:32 RBC Lymphocytes # PT INR APTT Glucose POC Glucose (mg/dL) 118 H 113 H Magnesium Creatine Kinase Assessment and Plan Assessment: this is a 73-year-old gentleman with history of atrial fibrillation on Xarelto as well as he is on aspirin at home presented because of the left upper extremity weakness that started about 2 days ago. In the ED it was felt the patient had left upper extremity cellulitis. My examination I felt the patient had the mild left facial droop as stated in the ED as well as that he had signi ficant left upper extremity weakness. He stated he has chronic left lower extremity weakness from a knee replacement.he had a T-max of 101. Acute left arm weakness with facial droop Possible acute ischemic stroke. Also rule out Questionable left upper extremity cellulitis. history of atrial fibrillation on Xarelto as well as aspirin Diabetes mellitus Hypertension Hypercholesterolemia Plan: I ordered MRI of the brain with and without which she will likely performed either tomorrow or Thursday. 2-D echo is ordered and is pending I ordered the hemoglobin A1c Patient home medication of Xarelto was restarted and was started on Plavix 75 mg daily by the ED team. We'll stop his home medication of aspirin since dual antiplatelet in addition to anticoagulation can increase risk of a bleed. Gracy on Lipitor 80 mg daily at bedtime by the primary team Continue neuro checks Cardiac monitoring PT OT INSURANCE [employer] are consulted Blood cultures are ordered and pending Patient is on clindamycin and I recommend consideration of infection disease consultation. We'll defer the rest of the medical management to primary team For DVT prophylaxis the patient is on the Xarelto Plan discussed with the patient, his nurses at bedside and the primary team Thank you for the consultation Dr. Banerjee will start neurology service tomorrow A.M. Time with Patient: Greater than 30
[2023-08-02 16:14] LABS: Glucose,Whole Blood 182 mg/dL (70-110)
[2023-08-02] MEDS ORDERED: DEXTROSE 50% SYRINGE 50 ML IVP PRN ×2 (16:48)
--- NOTE | 2023-08-02 16:51 | P.PN ---
Progress Note - Text Progress Note Date: 08/02/23 Patient is a 71-year-old male with a PMH of A. jimmie on Xarelto, hypertension, type II DM, hyperlipidemia who presents to the emergency room with complaints of left facial droop, left-sided weakness and left arm pain and swelling. History supplemented by the patient's at the bedside. Patient reports that he suddenly developed left upper and lower extremity weakness along with left facial droop yesterday evening along with gradually worsening left arm pain. He did not think much of it and upon waking up this morning, he noted not being able to grasp most items and severe pain of the left forearm overlying an area of redness and warmth. Patient denies injury to his left forearm. Does report some drooling from the left side of his mouth. Denied visual disturbances, headaches, chest discomfort, shortness of breath, cough, nausea, vomiting, abdominal pain, diarrhea. In the emergency room, the patient had a T-max of 101F. CT brain and CT angiogram head and neck were unremarkable. Chest x-ray was unremarkable. Left wrist x-ray was also unremarkable. EKG revealed a flutter at 93 bpm. Laboratory evaluation also revealed magnesium 1.0, INR 1.4, glucose 127. Case was discussed with neuro coordinate measuring machine programmer and deemed to not be candidate for TPA due to its prolonged duration from onset ED documentation reviewed and case discussed with ED provider. 08/02/2023: I assumed care of this patient this afternoon. Patient presented 3 days of increasing pain in the left forearm. Low-grade fever. Weakness in the left arm. Denies any injury. Has tenderness. Has a radial pulse. Concern about DVT. Stat ultrasound both venous and arterial ordered. I called Dr. Ruth the vascular on-call surgeon. Consulted for the same. [Patient denies any change in speech, swallowing, headache,] patient has some trouble walking. The left leg because a friend left knee problem. Which is not weak otherwise. Discussed with patient's At the Bedside. Some swelling of the left wrist and hand. Patient was started on IV clindamycin in the ER for-possible left forearm cellulitis.. Note patient is already on Xarelto. Discussed with Dr. Ruth, nurse, the family. Total time spent about 1 hour with over 40 minutes of discussion. Active Medications Hydrocodone Bitart/Acetaminophen (Hydrocodone/Apap 7.5-325mg 1 Each Tab) 1 each PO Q6H PRN PRN Reason: Pain Last Admin: 08/01/23 22:42 Dose: 1 each Amlodipine Besylate (Amlodipine 5 Mg Tab) 5 mg PO DAILY [facility] Last Admin: 08/02/23 08:20 Dose: 5 mg Atorvastatin Calcium (Atorvastatin 80 Mg Tab) 80 mg PO HS [facility] Clopidogrel Bisulfate (Clopidogrel 75 Mg Tab) 75 mg PO DAILY [facility] Last Admin: 08/02/23 08:20 Dose: 75 mg Famotidine (Famotidine 20 Mg Tab) 20 mg PO BID [facility] Last Admin: 08/02/23 08:20 Dose: 20 mg Finasteride (Finasteride 5 Mg Tab) 5 mg PO DAILY [facility] Last Admin: 08/02/23 08:20 Dose: 5 mg Sodium Chloride (Saline 0.9%) 1,000 mls @ 100 mls/hr IV .Q10H [facility] Last Admin: 08/02/23 08:27 Dose: 100 mls/hr Clindamycin Phosphate 300 mg/ (Dextrose/Water) 52 mls @ 50 mls/hr IVPB Q8H [facility]; Protocol Last Admin: 08/02/23 12:40 Dose: 50 mls/hr Insulin Aspart (Insulin Aspart (Novolog) 100 Unit/Ml Vial) 0 unit SQ ACHS [facility]; Protocol Last Admin: 08/02/23 11:46 Dose: Not Given Lisinopril (Lisinopril 10 Mg Tab) 30 mg PO DAILY [facility] Last Admin: 08/02/23 08:20 Dose: 30 mg Metoprolol Tartrate (Metoprolol Tartrate 25 Mg Tab) 25 mg PO BID [facility] Last Admin: 08/02/23 08:20 Dose: 25 mg Oxybutynin Chloride (Oxybutynin 10 Mg Tab.Er.24) 10 mg PO DAILY [facility] Last Admin: 08/02/23 08:20 Dose: 10 mg Rivaroxaban (Rivaroxaban 20 Mg Tab) 20 mg PO HS [facility]; Protocol Last Admin: 08/01/23 21:41 Dose: 20 mg Tamsulosin HCl (Tamsulosin 0.4 Mg Cap.Er.24h) 0.4 mg PO BID [facility] Last Admin: 08/02/23 08:20 Dose: 0.4 mg On examination: VITAL SIGNS: [T-max 101, 97.9 this morning], 72, 17, 123 with 74, 95% room air GENERAL APPEARANCE: Laying in bed, comfortable. HEENT: Normal external appearance of nose and ear. Oral cavity normal EYES: Pupils equal. Conjunctiva normal. NECK: JVD not raised. Mass not palpable. RESPIRATORY: Respiratory effort normal. Lungs clear to auscultation. CARDIOVASCULAR: First and second sounds normal. No edema. ABDOMEN: Soft. Liver and spleen not palpable. No tenderness. No mass palpable. PSYCHIATRY: Alert and oriented x3. Mood and affect normal. MUSCULAR skeletal: Arthritic changes and left knee NEUROLOGICAL: Decreased left-sided nasolabial fold. Left arm weakness 3/5 Left upper extremity: Power 3/5. tenderness of the left forearm. Swelling of the wrist and the hand INVESTIGATIONS, reviewed in the clinical context: August 02: CRP 16.5 CT brain, CT angiogram of the head and neck: Unremarkable EKG tracing: Atrial flutter 9 3 bpm Assessment plan: -Patient presents with 2-3 days of left arm pain and some swelling, or other tender. Also spiked a fever of 101.: Not improving Concern about a DVT and a possibly infected clot. I have called Dr. Juanito Ruth from vascular. Stat ultrasound of both arterial Doppler and venous Doppler to rule out DVT has been ordered. Also angiogram of the left upper extremity has been ordered. -Possible stroke. Patient on Plavix and xarelto. Being followed by Dr. Mendoza from urology. MRI pending. -Persistent atrial flutter fibrillation On Xarelto. Lopressor. -BPH Proscar 5 mg a day. Ditropan XL. Amlodipine. Zestril -Hyperlipidemia Mevacor 40 mg daily at bedtime -Diabetes mellitus type 2, on oral hypoglycemic Metformin thousand milligrams twice a day Assessment: Acute CVA Left distal forearm cellulitis Hypomagnesemia Chronic conditions: A. fib hypertension, type II DM, hyperlipidemia Imaging: CT brain and CT angiogram head and neck were unremarkable. Chest x-ray was unremarkable. Left wrist x-ray was also unremarkable. EKG revealed a flutter at 93 bpm. Data Review: Laboratory evaluation also revealed magnesium 1.0, INR 1.4, glucose 127. Plan: Neurology consult Neuro checks Echocardiogram Continue with clindamycin for left forearm cellulitis Continue with aspirin, statin, Xarelto PT and CHARGER consult Fall precautions Continue the home meds Insulin sliding scale DVT prophylaxis: Xarelto The patient is admitted with an anticipated greater than 2 midnight stay for evaluation of acute CVA CODE STATUS: Full Code Discussed with: Patient Anticipated discharge place: Home Past Medical History Past Medical History: Atrial Fibrillation, Cancer, Chest Pain / Angina, Diabetes Mellitus, Hyperlipidemia, Hypertension, Osteoarthritis (OA), Prostate Disorder Additional Past Medical History / Comment(s): kidney stones,bone spur right hip History of Any Multi-Drug Resistant Organisms: None Reported Past Surgical History: Orthopedic Surgery, Tonsillectomy Additional Past Surgical History / Comment(s): Carpal Tunnel Release, RT KNEE ARTHROSOCPY Past Anesthesia/Blood Transfusion Reactions: No Reported Reaction Additional Past Anesthesia/Blood Transfusion Reaction / Comment(s): no hx blood transfusion Past Psychological History: No Psychological Hx Reported Smoking Status: Former smoker Past Alcohol Use History: Occasional Additional Past Alcohol Use History / Comment(s): STARTED SMOKING AT AGE 13- SMOKED 1 PPD QUIT 40 YEARS AGO THEN STARTED TO CHEW-quit chewing tobacco 2018 approx Past Drug Use History: None Reported - Past Family History Mother Family Medical History: AFIB Additional Family Medical History / Comment(s): States that his mother from "gangrene of the stomach." Father Family Medical History: AICD/Pacemaker, Myocardial Infarction ([place]) Additional Family Medical History / Comment(s): pacer Brother(s) Family Medical History: AFIB Sister(s) Family Medical History: AFIB Medications and Allergies Home Medications Medication Instructions Recorded Confirmed Type Lovastatin [Mevacor] 40 mg PO HS 12/15/14 08/01/23 History Aspirin 81 mg PO DAILY 12/16/14 08/01/23 History Finasteride [Proscar] 5 mg PO DAILY 11/12/21 08/01/23 History Oxybutynin ER [Ditropan XL] 10 mg PO DAILY 11/12/21 08/01/23 History Rivaroxaban [Xarelto] 20 mg PO HS 11/12/21 08/01/23 History Tamsulosin HCl [Flomax] 0.4 mg PO BID 11/12/21 08/01/23 History amLODIPine BESYLATE 5 mg PO DAILY 11/12/21 08/01/23 History lisinopriL [Zestril] 30 mg PO DAILY 12/05/21 08/01/23 History metFORMIN HCL ER [Glucophage XR] 1,000 mg PO BID 01/31/22 08/01/23 History HYDROcodone/APAP 7.5-325MG [[place] 1 tab PO Q6H PRN 08/01/23 08/01/23 History 7.5-325] Metoprolol Tartrate [Lopressor] 25 mg PO BID 08/01/23 08/01/23 History Allergies Allergy/AdvReac Type Severity Reaction Status Date / Time amoxicillin Allergy Unknown Verified 08/01/23 20:03 Childhood Physical Exam Vitals: Vital Signs Temp Pulse Pulse Resp BP BP Pulse Ox 08/01/23 22:00 98.2 F 103 H 18 147/93 97 08/01/23 21:47 98 16 146/95 95 08/01/23 20:00 102 H 16 129/91 96 08/01/23 19:01 86 18 153/89 96 08/01/23 18:30 101 F H 89 18 148/97 95 08/01/23 18:15 100.8 F H 94 18 93/56 96 08/01/23 18:00 100.5 F H 89 18 138/90 96 08/01/23 17:44 100.1 F H 105 H 18 134/89 08/01/23 17:28 98.2 F 108 H 18 125/56 99 Intake and Output 08/01/23 08/01/23 08/02/23 14:59 22:59 06:59 Intake Total 540 Output Total 200 Balance 340 Intake: Oral 540 Output: Urine 200 Other: Voiding Method Urinal Weight 79.832 kg Results CBC & Chem 7: 08/01/23 18:08 08/01/23 18:08 Labs: Abnormal Lab Results - Last 24 Hours (Table) 08/01/23 08/01/23 08/01/23 Range/Units 18:08 18:08 18:08 RBC 4.26 L (4.30-5.90) m/uL Lymphocytes # 0.9 L (1.0-4.8) k/uL PT 14.4 H (10.0-12.5) sec INR 1.4 H (<1.2) APTT 30.8 H (22.0-30.0) sec Glucose 127 H (74-99) mg/dL Magnesium 1.0 L (1.6-2.3) mg/dL Creatine Kinase 45 L (55-170) U/L Thrombosis Risk Factor Assmnt - Choose All That Apply Each Factor Represents 1 point: Obesity (BMI >25) Each Risk Factor Represents 2 Points: Age 61-74 years Each Risk Factor Represents 5 Points: Stroke (< 1 month) Thrombosis Risk Factor Assessment Total Risk Factor Score: 8 Thrombosis Risk Factor Assessment Level: High Risk
--- NOTE | 2023-08-02 16:57 | US ---
EXAMINATION TYPE: US venous doppler duplex UE LT DATE OF EXAM: 08/02/2023 COMPARISON: NONE CLINICAL INDICATION: Male, 73 years old with history of acte LUE pain/swelling - forearm, weakness; L eft arm swelling SIDE PERFORMED: Left Grayscale, color doppler, spectral doppler imaging performed of the deep veins of the upper extremiti es. There is normal flow, compressibility and vascular waveforms. Left Arm: Negative for DVT IMPRESSION: Left arm negative for DVT.
--- NOTE | 2023-08-02 17:10 | US ---
EXAMINATION TYPE: US arterial UE multi level DATE OF EXAM: 08/02/2023 4:49 PM CLINICAL INDICATION: Male, 73 years old with history of acute pain swelling LUE / forearm; LUE acute pain and swelling, worst area of pain is in the left forearm. No injury. History of: Smoker: Previous Hypertension: Yes Diabetic: Yes Hyperlipidemia: Yes TIA/CVA: No Previous Vascular Surgery: No AK: No Vascular Ulcers: No Claudication: No Gangrene: No Doppler Waveforms: Left: Axillary: Multiphasic Brachial: Multiphasic Radial: Multiphasic Ulnar: Multiphasic Wrist Brachial Indices: Unable to perform forearm pressures due to patient's intense pain level. Digit Pressures Right: 0.75 right first digit Left: 0.75 left first digit IMPRESSION: Limited brachial indices due to patient's pain.
--- NOTE | 2023-08-02 19:06 | CT ---
EXAMINATION TYPE: CT angio upper extremity LT CT DLP: 869 mGycm, Automated exposure control for dose reduction was used. DATE OF EXAM: 08/02/2023 5:56 PM COMPARISON: CLINICAL INDICATION:Male, 73 years old with history of Pain swelling of left forearm with fever; PHH, Pain and swelling of left arm with fever. Unknown if injury occurred. TECHNIQUE: Axial images were obtained of the CT angio upper extremity LT, Additional coronal and sagi ttal reformatted images and soft tissue and bone window were obtained for review. 3-D and MIP recons truction was created on a separate workstation. Contrast used:100 ml mL of Isovue 370 with IV Contrast, (None if empty) Oral contrast used: (None if empty) FINDINGS: The vasculature of the left upper extremity is patent including the subclavian, axillary, b rachial, radial arteries are patent. There is nonvisualization of the ulnar artery on series 401 imag e 305 with reconstitution at 4 1 image 318 on coronal imaging series 4022 image 188 extending approxi mately 17 mm in length. No evidence of fracture. There is soft tissue edema around the hand and wrist. IMPRESSION: 1. There is poor visualization of the distal ulnar artery near the wrist extending 17 mm. Further ev aluation with ultrasound may be of benefit. Unclear whether there is some streak artifact in this reg ion versus actual occlusion. Remainder of the arterial vasculature appears patent. 2. Soft tissue edema around the hand and wrist.
[2023-08-02 20:12] LABS: Glucose,Whole Blood 138 mg/dL (70-110)
[2023-08-02] MEDS: ATORVASTATIN 80 MG TAB PO SCH (20:27)
[2023-08-02] MEDS: RIVAROXABAN 20 MG TAB PO SCH (20:28)
[2023-08-02] MEDS: HYDROcodone/APAP 7.5-325MG 1 EACH TAB PO PRN (23:54)
[2023-08-03] MEDS: SODIUM CHLORIDE 0.9% 1,000 ML IV SCH ×2 (03:46→13:20)
[2023-08-03] MEDS: CLINDAMYCIN 300 MG in DEXTROSE 5% IN WATER 50 ML IVPB SCH ×6 (05:38→22:08)
[2023-08-03 06:09] LABS: Glucose,Whole Blood 115 mg/dL (70-110)
[2023-08-03] MEDS: INSULIN ASPART (NovoLOG) 100 UNIT/ML VIAL SQ SCH ×4 (06:15→21:24)
[2023-08-03] MEDS: TAMSULOSIN 0.4 MG CAP.ER.24H PO SCH ×2 (08:26→20:17)
[2023-08-03] MEDS: FINASTERIDE 5 MG TAB PO SCH (08:26)
[2023-08-03] MEDS: lisinopriL 10 MG TAB PO SCH (08:26)
[2023-08-03] MEDS: amLODIPine 5 MG TAB PO SCH (08:26)
[2023-08-03] MEDS: METOPROLOL TARTRATE 25 MG TAB PO SCH ×2 (08:27→20:18)
[2023-08-03] MEDS: FAMOTIDINE 20 MG TAB PO SCH ×2 (08:27→20:18)
[2023-08-03] MEDS: CLOPIDOGREL 75 MG TAB PO SCH (08:27)
[2023-08-03] MEDS: HYDROcodone/APAP 7.5-325MG 1 EACH TAB PO PRN (08:27)
[2023-08-03] MEDS: OXYBUTYNIN 10 MG TAB.ER.24 PO SCH (08:28)
[2023-08-03] MEDS ORDERED: LORazepam 1 MG TAB PO STA (09:36)
--- NOTE | 2023-08-03 10:58 | P.GSCN ---
History of Present Illness Consult date: 08/03/23 Reason for Consult: Left arm edema and pain Requesting physician: Timothy Bay History of present illness: This is a pleasant 73-year-old male who presented to the emergency department 2 days ago with concerns for left facial droop and left upper extremity weakness. He has a past medical history including previous CVA/TIA, atrial fibrillation on Xarelto, hypertension, type 2 diabetes mellitus and hyperlipidemia. States that he was having left upper extremity weakness that started Thursday evening he did not realize that he had a left facial droop states that his kids made him come in to the emergency department for further evaluation. Patient started having left upper extremity pain mostly in the wrist following the weakness. He denies any injury to his left forearm or left arm. He was noted to have left hand and wrist swelling. He did have a x-ray of the left wrist that showed no acute osseous pathology. Degenerative changes. He also had workup for stroke CT brain on negative for any acute findings. CT angiogram head and neck with no hemodynamically significant ICA stenosis. Neurology is following for CVA/TIA. Patient is to undergo MRI today. Patient continued to have complaints of left hand and wrist swelling with left wrist pain, therefore vascular surgery was consulted. Primary medical team ordered multiple studies of the left upper extremity including venous duplex that was negative for DVT, arterial ultrasound that showed multiphasic Doppler signal as well as a left upper extremity CTA, again which showed normal arterial blood flow. He continues to have left upper extremity weakness, left hand is swollen and has pain in hand and fingers as well as wrist, limited mobility of hand and grasp. He does have left facial droop. He denies any shortness of breath, chest pain, abdominal pain, nausea or vomiting. Wrist pain is worse with palpation. Denies any weakness of bilateral lower extremities. Review of Systems A 14 point review systems was completed all pertinent positives and negatives as stated in the HPI. Past Medical History Past Medical History: Atrial Fibrillation, Cancer, Chest Pain / Angina, Diabetes Mellitus, Hyperlipidemia, Hypertension, Osteoarthritis (OA), Prostate Disorder Additional Past Medical History / Comment(s): kidney stones,bone spur right hip History of Any Multi-Drug Resistant Organisms: None Reported Past Surgical History: Orthopedic Surgery, Tonsillectomy Additional Past Surgical History / Comment(s): Carpal Tunnel Release, RT KNEE ARTHROSOCPY Past Anesthesia/Blood Transfusion Reactions: No Reported Reaction Additional Past Anesthesia/Blood Transfusion Reaction / Comm: no hx blood transfusion Past Psychological History: No Psychological Hx Reported Smoking Status: Former smoker Past Alcohol Use History: Occasional Additional Past Alcohol Use History / Comment(s): STARTED SMOKING AT AGE 13- SMOKED 1 PPD QUIT 40 YEARS AGO THEN STARTED TO CHEW-quit chewing tobacco 2018 approx Past Drug Use History: None Reported - Past Family History Mother Family Medical History: AFIB Additional Family Medical History / Comment(s): States that his mother from "gangrene of the stomach." Father Family Medical History: AICD/Pacemaker, Myocardial Infarction ([place]) Additional Family Medical History / Comment(s): pacer Brother(s) Family Medical History: AFIB Sister(s) Family Medical History: AFIB Medications and Allergies Home Medications Medication Instructions Recorded Confirmed Type Lovastatin [Mevacor] 40 mg PO HS 12/15/14 08/01/23 History Aspirin 81 mg PO DAILY 12/16/14 08/01/23 History Finasteride [Proscar] 5 mg PO DAILY 11/12/21 08/01/23 History Oxybutynin ER [Ditropan XL] 10 mg PO DAILY 11/12/21 08/01/23 History Rivaroxaban [Xarelto] 20 mg PO HS 11/12/21 08/01/23 History Tamsulosin HCl [Flomax] 0.4 mg PO BID 11/12/21 08/01/23 History amLODIPine BESYLATE 5 mg PO DAILY 11/12/21 08/01/23 History lisinopriL [Zestril] 30 mg PO DAILY 12/05/21 08/01/23 History metFORMIN HCL ER [Glucophage XR] 1,000 mg PO BID 01/31/22 08/01/23 History HYDROcodone/APAP 7.5-325MG [Roxana 1 tab PO Q6H PRN 08/01/23 08/01/23 History 7.5-325] Metoprolol Tartrate [Lopressor] 25 mg PO BID 08/01/23 08/01/23 History Allergies Allergy/AdvReac Type Severity Reaction Status Date / Time amoxicillin Allergy Unknown Verified 08/01/23 20:03 Childhood Surgical - Exam Vital Signs Temp Pulse Resp BP Pulse Ox 98.2 F 108 H 18 125/56 99 08/01/23 17:28 11/11/23 17:28 08/01/23 17:28 08/01/23 17:28 08/01/23 17:28 General appearance: The patient is alert, oriented, appears in no acute distress. HET: Head is normocephalic and atraumatic. Pupils are equal and reactive. Neck: Supple. Heart: Regular. Lungs: Equal expansion, normal respiratory effort. Abdomen: Soft, nontender, nondistended. Extremities: Left upper extremity hand and wrist with swelling, mild erythema. Palpable radial ulnar pulse. Tender to palpation along the wrist and hand. The rest of the left upper extremity without any swelling, tenderness or firmness. No evidence of compartment syndrome. Bilateral lower extremities without any swelling, palpable DP pulses with good tone and strength. Neurological: Patient with notable left facial droop. Speech is fluent, patient answers questions appropriately and able to follow commands. Bilateral lower extremity strength and tone intact. Left upper extremity with weakness, patient is able to lift his left arm ports his ear however he has very limited use of the left hand. Results - Labs 08/01/23 18:08 08/01/23 18:08 Abnormal Lab Results - Last 24 Hours (Table) 08/01/23 08/02/23 08/02/23 Range/Units 18:08 11:32 14:48 POC Glucose (mg/dL) 113 H (70-110) mg/dL Hemoglobin A1c 6.5 H (<=6.0) % C-Reactive Protein 16.5 H (<1.0) mg/dL 08/02/23 08/02/23 08/03/23 Range/Units 16:13 20:10 06:06 POC Glucose (mg/dL) 182 H 138 H 115 H (70-110) mg/dL Hemoglobin A1c (<=6.0) % C-Reactive Protein (<1.0) mg/dL Diabetes panel 08/01/23 08/01/23 Range/Units 18:08 18:08 Hemoglobin A1c 6.5 H (<=6.0) % Triglycerides 122.00 (0.00-149.00) mg/dL HDL Cholesterol 51.80 (40.00-60.00) mg/dL - Imaging Comments: Left upper extremity CT angiogram reports poor visualization of the distal ulnar artery near the wrist extending 17 mm. Further evaluation with ultrasound may be of benefit. Unclear whether there is some streak artifact in this region versus her actual occlusion. Remainder of arterial vasculature appears patent. Soft tissue edema around the hand and wrist. Left upper extremity arterial ultrasound reports multiphasic Doppler waveforms left axillary, brachial, radial and ulnar arteries. Right first digit and left first digit pressure 0.75 bilaterally. Limited brachial indices due to patient's pain. Left upper extremity venous duplex negative for DVT Brain CT reports moderate atrophy and chronic microvascular ischemic white matter changes. No CT evidence of an acute intracranial abnormality. CT angiogram head and neck reports mild to moderate arthrosclerotic calcification of the bilateral carotid bifurcations and the neck and siphon portions of the intracranial ICAs without hemodynamically significant stenosis. No evidence of major arterial occlusion or aneurysm in the limits of CTA. Left vertebral is dominant. There is calcification of the V1 segment of the left vertebral artery with approximately 50% diameter stenosis Assessment and Plan Assessment: 1. Left hand and wrist swelling and pain 2. Left upper extremity weakness and left facial droop, neurology following for possible CVA 3. History of atrial fibrillation 4. Diabetes mellitus 5. Hypertension 6. Hyperlipidemia 7. Arthritis` Plan: Unclear etiology of left hand and wrist swelling and pain. Arterial and venous imaging reviewed by Dr. Lindquist. There is no evidence of arterial insufficiency. There is no evidence for DVT and no evidence of compartment syndrome. There is no indication for any vascular surgical intervention at this time. Consider possible orthopedic evaluation. Elevate left hand and wrist. Thank you for this consultation. The impression and plan of care has been dictated as directed. I performed a history and examination of this patient, discussed the same with the dictator. I agree with the dictator's note ,documented as a scribe. Any additional findings or plans will be noted.
[2023-08-03 11:23] LABS: Glucose,Whole Blood 124 mg/dL (70-110)
--- NOTE | 2023-08-03 12:14 | MR ---
EXAMINATION TYPE: MR brain wo/w con DATE OF EXAM: 08/03/2023 COMPARISON: CT 08/01/2023 HISTORY: LUE weakness, facial droop. TECHNIQUE: Multiplanar, multisequence images of the brain and brainstem is performed without and with IV contras t, utilizing 7.5 mL intravenous Gadavist . FINDINGS: Diffusion weighted images demonstrate no evidence of a recent infarct or other diffusion ab normality. There is a moderate to severe generalized degenerative change of the greater central component. Diffu se and numerous focal areas of abnormal signal scattered throughout the white matter bilaterally nons pecific. Changes of chronic sinusitis. Nasal septal deviation. Orbits are symmetric. Midline structures demons trate normal morphology. The craniocervical junction appears within normal limits. Post contrast im ages demonstrate no abnormal enhancement. The dural venous sinuses appear patent. Prominent cisterna magna. Mild chronic bilateral mastoiditis. There is an asymmetric subcutaneous lipoma overlying the l eft frontal bone IMPRESSION: 1. Limited exam due to severe motion artifact demonstrates no definite diagnostic evidence of acute i schemia. 2. Degenerative and nonspecific white matter changes most typical of remote ischemic white matter master nge. A component of normal pressure hydrocephalus in the differential diagnosis.
--- NOTE | 2023-08-03 13:11 | P.PN ---
Progress Note - Text Progress Note Date: 08/03/23 Patient is a 71-year-old male with a PMH of ARefugio samuel on Xarelto, hypertension, type II DM, hyperlipidemia who presents to the emergency room with complaints of left facial droop, left-sided weakness and left arm pain and swelling. History supplemented by the patient's at the bedside. Patient reports that he suddenly developed left upper and lower extremity weakness along with left facial droop yesterday evening along with gradually worsening left arm pain. He did not think much of it and upon waking up this morning, he noted not being able to grasp most items and severe pain of the left forearm overlying an area of redness and warmth. Patient denies injury to his left forearm. Does report some drooling from the left side of his mouth. Denied visual disturbances, headaches, chest discomfort, shortness of breath, cough, nausea, vomiting, abdominal pain, diarrhea. In the emergency room, the patient had a T-max of 101F. CT brain and CT angiogram head and neck were unremarkable. Chest x-ray was unremarkable. Left wrist x-ray was also unremarkable. EKG revealed a flutter at 93 bpm. Laboratory evaluation also revealed magnesium 1.0, INR 1.4, glucose 127. Case was discussed with neuro stock preparer and deemed to not be candidate for TPA due to its prolonged duration from onset ED documentation reviewed and case discussed with ED provider. 08/02/2023: I assumed care of this patient this afternoon. Patient presented 3 days of increasing pain in the left forearm. Low-grade fever. Weakness in the left arm. Denies any injury. Has tenderness. Has a radial pulse. Concern about DVT. Stat ultrasound both venous and arterial ordered. I called Dr. Ruth the vascular on-call surgeon. Consulted for the same. [Patient denies any change in speech, swallowing, headache,] patient has some trouble walking. The left leg because a friend left knee problem. Which is not weak otherwise. Discussed with patient's At the Bedside. Some swelling of the left wrist and hand. Patient was started on IV clindamycin in the ER for-possible left forearm cellulitis.. Note patient is already on Xarelto. Discussed with Dr. Ruth, nurse, the family. Total time spent about 1 hour with over 40 minutes of discussion. August 03: Still has some pain but decreased pain and tenderness in the left hand. Swelling still present. No evidence of DVT. CT angiogram of the left arm done. Vascular following. We'll consult orthopedics. MRI of the brain showing some motion artifact.-no Obvious evidence of acute ischemia. Also ordering an MRI with and without contrast of the left wrist hand. Patient is able to lift his arm and some weakness Active Medications Hydrocodone Bitart/Acetaminophen (Hydrocodone/Apap 7.5-325mg 1 Each Tab) 1 each PO Q6H PRN PRN Reason: Pain Last Admin: 08/03/23 08:27 Dose: 1 each Amlodipine Besylate (Amlodipine 5 Mg Tab) 5 mg PO DAILY [facility] Last Admin: 08/03/23 08:26 Dose: 5 mg Atorvastatin Calcium (Atorvastatin 80 Mg Tab) 80 mg PO HS [facility] Last Admin: 08/02/23 20:27 Dose: 80 mg Clopidogrel Bisulfate (Clopidogrel 75 Mg Tab) 75 mg PO DAILY [facility] Last Admin: 08/03/23 08:27 Dose: 75 mg Dextrose/Water (Dextrose 50% Syringe 50 Ml) 25 ml IVP PER PROTOCOL PRN; Protocol PRN Reason: Hypoglycemia Dextrose/Water (Dextrose 50% Syringe 50 Ml) 50 ml IVP PER PROTOCOL PRN; Protocol PRN Reason: Hypoglycemia Famotidine (Famotidine 20 Mg Tab) 20 mg PO BID [facility] Last Admin: 08/03/23 08:27 Dose: 20 mg Finasteride (Finasteride 5 Mg Tab) 5 mg PO DAILY [facility] Last Admin: 08/03/23 08:26 Dose: 5 mg Sodium Chloride (Saline 0.9%) 1,000 mls @ 100 mls/hr IV .Q10H [facility] Last Admin: 08/03/23 03:46 Dose: Not Given Clindamycin Phosphate 300 mg/ (Dextrose/Water) 52 mls @ 50 mls/hr IVPB Q8H [facility]; Protocol Last Admin: 08/03/23 05:38 Dose: 50 mls/hr Insulin Aspart (Insulin Aspart (Novolog) 100 Unit/Ml Vial) 0 unit SQ ACHS [facility]; Protocol Last Admin: 08/03/23 11:28 Dose: Not Given Lisinopril (Lisinopril 10 Mg Tab) 30 mg PO DAILY [facility] Last Admin: 08/03/23 08:26 Dose: 30 mg Metoprolol Tartrate (Metoprolol Tartrate 25 Mg Tab) 25 mg PO BID [facility] Last Admin: 08/03/23 08:27 Dose: 25 mg Oxybutynin Chloride (Oxybutynin 10 Mg Tab.Er.24) 10 mg PO DAILY [facility] Last Admin: 08/03/23 08:28 Dose: 10 mg Rivaroxaban (Rivaroxaban 20 Mg Tab) 20 mg PO HS [facility]; Protocol Last Admin: 08/02/23 20:28 Dose: 20 mg Tamsulosin HCl (Tamsulosin 0.4 Mg Cap.Er.24h) 0.4 mg PO BID [facility] Last Admin: 08/03/23 08:26 Dose: 0.4 mg On examination: VITAL SIGNS: 98.3, 92, 18, 110/75, 98% room air GENERAL APPEARANCE: Laying in bed, comfortable. HEENT: Normal external appearance of nose and ear. Oral cavity normal EYES: Pupils equal. Conjunctiva normal. NECK: JVD not raised. Mass not palpable. RESPIRATORY: Respiratory effort normal. Lungs clear to auscultation. CARDIOVASCULAR: First and second sounds normal. No edema. ABDOMEN: Soft. Liver and spleen not palpable. No tenderness. No mass palpable. PSYCHIATRY: Alert and oriented x3. Mood and affect normal. MUSCULAR skeletal: Arthritic changes and left knee NEUROLOGICAL: Decreased left-sided nasolabial fold. Left arm weakness 3/5 Left upper extremity: Power 4/5. tenderness of the left forearm/wrist. Swelling of the wrist and the hand INVESTIGATIONS, reviewed in the clinical context: MRI of the brain with and without contrast: Limited exam due to severe which an artifact. No obvious evidence of acute ischemia. White matter changes. CT angiogram of her extremity left: Poor visualization of the distal ulna artery near the wrist extending 17 mm. Soft tissue edema around the hand and the wrist. Venous Doppler left arm: Negative for DVT August 02: CRP 16.5 CT brain, CT angiogram of the head and neck: Unremarkable EKG tracing: Atrial flutter 9 3 bpm Assessment plan: -Patient presents with 2-3 days of left arm pain and some swelling, or other tender. Also spiked a fever of 101.: Patient has tenderness around the wrist the left hand. He followed by vascular Dr. Juanito Ruth. Patient is already on Xarelto Orthopedics consulted -Possible stroke. Patient on Plavix and xarelto. Being followed by Dr. Basha from urology. MRI brain did not show any obvious stroke. -Persistent atrial flutter fibrillation On Xarelto. Lopressor. -BPH Proscar 5 mg a day. Ditropan XL. Amlodipine. Zestril -Hyperlipidemia Mevacor 40 mg daily at bedtime -Diabetes mellitus type 2, on oral hypoglycemic Metformin thousand milligrams twice a day 2 -Full code Vaginal clindamycin. Await further input from vascular, orthopedics, neurology. Discussed with patient.
--- NOTE | 2023-08-03 16:22 | P.PN ---
Subjective Progress Note Date: 08/03/23 Patient initially seen by Dr. Kishor Mendoza. Please refer to his note for details. Patient is a 73-year-old male with left upper extremity weakness that started while he was awake on 07/31/2023. He has pain in the distal extensor forearm, and dorsal wrist region. Any movement is hurting. The left wrist is swollen. He denies any neck pain. There is concern for cellulitis of the left upper extremity. Patient is already on Xarelto an aspirin at home. Patient has history of diabetes for 10 years, which is controlled with A1c 6.5. He has hypertension. He has smoked 1 pack per day for 30 years, quit 40 years ago. He has been on metformin. Patient denies any symptoms related to the head or neck region, any facial droop, or any symptoms in the lower limbs. He denies any radicular pain in the neck. No numbness or tingling in the hands. Some of the workup during his hospital visit consisted of: Lipid panel is triglyceride 122, cholesterol 134, LDLs 57 and HDL 61 Initial serum glucose is 127. Magnesium is 1.0. CT of the head is reported as moderate atrophy and chronic microvascular ischemic white matter changes. No CT evidence for acute intracranial abnormality. CT angiography of the head and neck is reported as mild to moderate of the sclerotic calcification of bilateral carotid the bifurcation in the neck and siphons portions of the intracranial ICA without hemodynamic significant stenosis. No evidence of major arterial occlusion or aneurysm and the limits of CTA. Left vertebral is dominant. There is calcification of the P1 segment of the left vertebral artery with approximately 50% diameter stenosis. EKG is reported as atrial flutter/tachycardia. the ED team felt the patient has presumed cellulitis of the left upper extremity and placed him on IV antibiotic. Objective - Vital Signs Vital signs: Vital Signs Temp 98.3 F 08/03/23 08:23 Pulse 92 08/03/23 08:23 Resp 18 08/03/23 08:23 BP 110/75 08/03/23 08:23 Pulse Ox 98 08/03/23 08:23 FiO2 Intake & Output 08/02/23 08/03/23 08/03/23 18:59 06:59 18:59 Intake Total 354 120 Output Total 200 125 Balance 154 -5 Intake: Oral 354 120 Output: Urine 200 125 Other: Voiding Method External Catheter External Catheter External Catheter # Voids 1 1 - Exam Patient's mental status, speech and language functions are normal. Cranial nerves significant for mild left facial asymmetry, which probably is old. No Melisa's syndrome. On muscle strength testing, the strength is normal in the right arm and both legs. In the left upper extremity deltoid 5, triceps 5, brachioradialis 5, biceps 5, wrist extension 2-3, finger extension 3 to 3+, interossei 3, finger flexion 3+. Patient has weakness of the thumb adduction, extension. No numbness to fine touch in the left upper extremity in any dermatomal or nerve distribution. Patient has point tenderness over the distal dorsal forearm, about 2 inches proximal to the wrist. Reflexes are (right/left) biceps trace/2, brachioradialis trace/0, triceps 0/0, knee 2/0, ankles 0/0, and plantars are downgoing. Left wrist is very tender to any movement, and swollen. - Labs CBC & Chem 7: 08/01/23 18:08 08/01/23 18:08 Labs: Abnormal Lab Results - Last 24 Hours (Table) 08/01/23 08/02/23 08/02/23 Range/Units 18:08 11:32 14:48 POC Glucose (mg/dL) 113 H (70-110) mg/dL Hemoglobin A1c 6.5 H (<=6.0) % C-Reactive Protein 16.5 H (<1.0) mg/dL 08/02/23 08/02/23 08/03/23 Range/Units 16:13 20:10 06:06 POC Glucose (mg/dL) 182 H 138 H 115 H (70-110) mg/dL Hemoglobin A1c (<=6.0) % C-Reactive Protein (<1.0) mg/dL 08/03/23 Range/Units 11:22 POC Glucose (mg/dL) 124 H (70-110) mg/dL Hemoglobin A1c (<=6.0) % C-Reactive Protein (<1.0) mg/dL Assessment and Plan Assessment: this is a 73-year-old gentleman with history of atrial fibrillation on Xarelto as well as he is on aspirin at home presented because of the left upper extremity weakness and pain, that started on 07/31/2023. Patient does have mild left facial asymmetry, probably is old. No evidence of acute stroke on the MRI of the brain. Patient denies any neck pain, therefore radiculopathy appears unlikely. Patient has diabetes, therefore concerning for lower trunk brachial plexopathy. However there is no associated numbness in any root distribution noted. No fracture noted in the left wrist x-ray. Patient also has T-max of 101, some concern for possible cellulitis. Acute left arm weakness, mainly involving the hand/wrist, both in the flexor and extensor region. Patient also has significant pain and swelling particularly in the left distal forearm, dorsally about 2 inches proximal to the wrist. Questionable left upper extremity cellulitis. Brachial plexopathy also in the differential, but patient has no numbness or neuropathic pains at this time. Rule out activation of ?gout. Acute CVA ruled out. Patient denies any neck pain, therefore doubt cervical radiculopathy. History of atrial fibrillation on Xarelto as well as aspirin Diabetes mellitus Hypertension Hypercholesterolemia X tobacco use Plan: MRI of the brain with and without contrast revealed limited exam due to severe motion artifact demonstrates no definite diagnostic evidence of acute ischemia. Degenerative and nonspecifically white matter changes, most typical of remote ischemic white matter change. A component of normal pressure hydrocephalus in the differential diagnosis. On my review, there is no evidence of an acute stroke. There is at least moderate generalized cerebral atrophy. Some small vessel disease. No abnormal enhancement. 2-D echo revealed normal left ventricular size, mild global decrease in contractility with estimated ejection fraction of 45-50% with mild to moderate TR and MR. Left atrial size is normal. Hemoglobin A1c 6.5 Patient was seen by vascular surgery. No evidence of arterial occlusion, or DVT. Patient undergoing MRI of the wrist. If no obvious answer identified, would suggest starting Solu-Medrol for possible brachial plexopathy. Patient home medication of Xarelto was restarted and was started on Plavix 75 mg daily by the ED team. May resume aspirin. No need for Plavix. Patient on Lipitor 80 mg daily at bedtime by the primary team CTA of the left upper limb revealed poor visualization of the distal ulnar artery near the wrist extending 70 mm. Further evaluation with ultrasound may be of benefit. Unclear whether there is some streak artifact in this region versus actual occlusion. Remainder of the arterial vasculature appears patent. Soft tissue edema around the hand and wrist. Ultrasound left upper limb revealed limited brachial indices due to patient's pain. PT OT FIELD EVIDENCE TECHNICIAN are consulted Blood cultures are ordered so far negative. Patient is on clindamycin. We'll defer the rest of the medical management to primary team For DVT prophylaxis the patient is on the Xarelto
[2023-08-03 16:25] LABS: Glucose,Whole Blood 137 mg/dL (70-110)
[2023-08-03] MEDS: ATORVASTATIN 80 MG TAB PO SCH (20:17)
[2023-08-03] MEDS: RIVAROXABAN 20 MG TAB PO SCH (20:17)
[2023-08-03 21:01] LABS: Glucose,Whole Blood 136 mg/dL (70-110)
[2023-08-04] MEDS: HYDROcodone/APAP 7.5-325MG 1 EACH TAB PO PRN ×2 (00:35→08:18)
[2023-08-04] MEDS: SODIUM CHLORIDE 0.9% 1,000 ML IV SCH ×3 (04:04→11:34)
[2023-08-04 04:53] LABS: Glucose,Whole Blood 103 mg/dL (70-110)
[2023-08-04] MEDS: CLINDAMYCIN 300 MG in DEXTROSE 5% IN WATER 50 ML IVPB SCH ×4 (05:02→12:31)
[2023-08-04] MEDS: INSULIN ASPART (NovoLOG) 100 UNIT/ML VIAL SQ SCH ×3 (06:32→16:33)
--- NOTE | 2023-08-04 07:01 | CA ---
Transthoracic Echo Report Name: Eris Cole Age: 73 Gender: M : 1950 Exam Date: 08/03/2023 11:03 Exam Location: [facility] Ht (in): 66 Wt (lb): 176 Ordering Physician: Dylan Ramirez MD Attending/Referring Phys: Court Recording Monitor Anne Marie Srinivasan RDCS Procedure CPT: Indications: Thrombus Cardiac Hx: Technical Quality: Good Contrast 1: Total Dose (mL): Contrast 2: Total Dose (mL): MEASUREMENTS (Male / Female) Normal Values 2D ECHO LV Diastolic Diameter PLAX 4.0 cm 4.2 - 5.9 / 3.9 - 5.3 cm LV Systolic Diameter PLAX 3.4 cm IVS Diastolic Thickness 1.0 cm 0.6 - 1.0 / 0.6 - 0.9 cm LVPW Diastolic Thickness 1.0 cm 0.6 - 1.0 / 0.6 - 0.9 cm LV Relative Wall Thickness 0.5 RV Internal Dim ED PLAX 3.8 cm LA Systolic Diameter LX 3.9 cm 3.0 - 4.0 / 2.7 - 3.8 cm LA Volume 55.7 cm??? 18 - 58 / 22 - 52 cm??? LA Volume Index 28.6 cm???/m??? 16 - 28 cm???/m??? M-MODE Aortic Root Diameter MM 3.5 cm MV E Point Septal Separation 0.3 cm AV Cusp Separation MM 2.0 cm DOPPLER AV Peak Velocity 103.4 cm/s AV Peak Gradient 4.3 mmHg MV Area PHT 5.2 cm??? MV Deceleration Time 170.8 ms TR Peak Velocity 282.5 cm/s TR Peak Gradient 31.9 mmHg Right Ventricular Systolic Press 36.6 mmHg FINDINGS Left Ventricle Left ventricular ejection fraction is estimated at 45 %. Left ventricular cavity size normal. Left ventricular wall thickness normal. Right Ventricle Mild right ventricular dilatation. Mild pulmonary hypertension. Right ventricular systolic pressure estimated at 37 mm hg. Right Atrium No right atrial thrombus or mass seen. Left Atrium Normal left atrial size. Mitral Valve Structurally normal mitral valve. Mild mitral regurgitation Aortic Valve Trileaflet aortic valve. No aortic valve stenosis or regurgitation. Tricuspid Valve Structurally normal tricuspid valve. [id number] tricuspid regurgitation. Pulmonic Valve Structurally normal pulmonic valve. No pulmonic regurgitation. Pericardium No pericardial effusion. Aorta Normal size aortic root and proximal ascending aorta. CONCLUSIONS Normal LV size mild global decrease in contractility with estimated ejection fraction of 45-50% with mild to moderate tricuspid and mild mitral regurgitation. No pericardial effusion. No significant pulmonary hypertension Previewed by: Dr. Bob Luna MD (Electronically Signed) Final Date: 04 August 2023 07:00
[2023-08-04] MEDS: METOPROLOL TARTRATE 25 MG TAB PO SCH ×2 (08:19→20:59)
[2023-08-04] MEDS: FAMOTIDINE 20 MG TAB PO SCH ×2 (08:19→20:59)
[2023-08-04] MEDS: amLODIPine 5 MG TAB PO SCH (08:19)
[2023-08-04] MEDS: OXYBUTYNIN 10 MG TAB.ER.24 PO SCH (08:19)
[2023-08-04] MEDS: FINASTERIDE 5 MG TAB PO SCH (08:19)
[2023-08-04] MEDS: TAMSULOSIN 0.4 MG CAP.ER.24H PO SCH ×2 (08:19→20:59)
[2023-08-04] MEDS: CLOPIDOGREL 75 MG TAB PO SCH (08:19)
[2023-08-04] MEDS: lisinopriL 10 MG TAB PO SCH (08:19)
--- NOTE | 2023-08-04 08:52 | P.PN ---
Subjective Progress Note Date: 08/04/23 Patient is seen and examined today as a follow-up. Left hand and wrist remains swollen and painful. Patient has weakness in that left hand. Left upper extremity CTA further reviewed by Dr. Lindquist arteries appear patent. Brain MRI shows no acute findings. Objective - Vital Signs Vital signs: Vital Signs Temp 97.9 F 08/04/23 07:54 Pulse 70 08/04/23 07:54 Resp 18 08/04/23 07:54 BP 135/90 08/04/23 07:54 Pulse Ox 96 08/04/23 04:00 FiO2 Intake & Output 08/03/23 08/04/23 08/04/23 18:59 06:59 18:59 Intake Total 118 Output Total 325 Balance -207 Intake: Oral 118 Output: Urine 325 Other: Voiding Method External Catheter Toilet Urinal # Voids 1 1 - Exam General appearance: The patient is alert, oriented, appears in no acute distress. HET: Head is normocephalic and atraumatic. Pupils are equal and reactive. Neck: Supple. Abdomen: Soft, nondistended. Extremities: Left hand and wrist swollen, with some left upper extremity weakness. Palpable radial pulse, nonpalpable ulnar pulse. Multiphasic Radial and ulnar Doppler signal present, however no Doppler signal present in the hand when radial artery compressed. Neurological: Sensorimotor intact bilateral upper or lower extremities. Bilateral upper extremity with good tone, left weaker than right.. - Labs CBC & Chem 7: 08/01/23 18:08 08/01/23 18:08 Labs: Abnormal Lab Results - Last 24 Hours (Table) 08/03/23 08/03/23 08/03/23 Range/Units 11:22 16:24 20:58 POC Glucose (mg/dL) 124 H 137 H 136 H (70-110) mg/dL Microbiology - Last 24 Hours (Table) 08/01/23 20:20 Blood Culture - Preliminary Blood 08/01/23 19:55 Blood Culture - Preliminary Blood Assessment and Plan Assessment: 1. Left hand and wrist swelling and pain 2. 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 Left upper extremity weakness and left facial droop, neurology following for possible CVA 4. History of atrial fibrillation 5. Diabetes mellitus 6. Hypertension 7. Hyperlipidemia 8. Arthritis` Plan: Unclear etiology of left hand and wrist swelling and weakness. There is no evidence for DVT and no evidence of compartment syndrome. Again CTA reviewed by Dr. Lindquist radial and ulnar arteries appear patent, multiphasic radial ulnar Doppler signal however there does appear to be segment of ulnar arterial occlusion between the wrist and hand, however there is no surgical intervention indicated. Continue with anticoagulation. Elevate left hand and wrist. Thank you for this consultation, we will sign off at this time. The impression and plan of care has been dictated as directed. I performed a history and examination of this patient, discussed the same with the dictator. I agree with the dictator's note ,documented as a scribe. Any additional findings or plans will be noted.
[2023-08-04] MEDS ORDERED: LORazepam 1 MG TAB PO PRN (10:06)
[2023-08-04 11:30] LABS: Glucose,Whole Blood 128 mg/dL (70-110)
[2023-08-04 11:55] VITALS: RESP 17
[2023-08-04] MEDS ORDERED: ASPIRIN 81 MG PO SCH (12:00)
[2023-08-04 12:11] LABS: African American GFR (CKD) >90 (>60 ml/min/1.73 sqM); Anion Gap 14 mmol/L; Blood Urea Nitrogen 10 mg/dL (9-20); Calcium 9.2 mg/dL (8.4-10.2); Carbon Dioxide 20 mmol/L (22-30); Chloride 106 mmol/L (98-107); Glucose 112 mg/dL (74-99); Non-African American GFR(CKD) >90 (>60 ml/min/1.73 sqM); Sodium 140 mmol/L (137-145)
[2023-08-04 12:12] LABS: Potassium 4.9 mmol/L (3.5-5.1)
[2023-08-04 12:16] LABS: Basophils % (A) 0 %; Eosinophils # (A) 0.3 k/uL (0-0.7); Eosinophils % (A) 4 %; HCT 37.1 % (39.0-53.0); HGB 12.4 gm/dL (13.0-17.5); Lymphocytes % (A) 14 %; MCHC 33.3 g/dL (31.0-37.0); MCV 92.9 fL (80.0-100.0); Mean Platelet Volume 10.2; Monocytes # (A) 0.6 k/uL (0-1.0); Monocytes % (A) 8 %; Neutrophils # (A) 5.1 k/uL (1.3-7.7); Neutrophils % (A) 72 %; Platelet Count 115 k/uL (150-450); RBC 3.99 m/uL (4.30-5.90); RDW 13.1 % (11.5-15.5); WBC 7.1 k/uL (3.8-10.6)
--- NOTE | 2023-08-04 16:02 | P.PN ---
Subjective Progress Note Date: 08/04/23 08/04/2023: Patient was seen for a follow-up. Patient's pain has much improved. He was able to participate in the examination much better as per examination section. Offers no new complaints. He is sitting in the recliner. 08/03/2023: Patient initially seen by Dr. Kishor Mendoza. Please refer to his note for details. Patient is a 73-year-old male with left upper extremity weakness that started while he was awake on 07/31/2023. He has pain in the distal extensor forearm, and dorsal wrist region. Any movement is hurting. The left wrist is swollen. He denies any neck pain. There is concern for cellulitis of the left upper extremity. Patient is already on Xarelto an aspirin at home. Patient has history of diabetes for 10 years, which is controlled with A1c 6.5. He has hypertension. He has smoked 1 pack per day for 30 years, quit 40 years ago. He has been on metformin. Patient denies any symptoms related to the head or neck region, any facial droop, or any symptoms in the lower limbs. He denies any radicular pain in the neck. No numbness or tingling in the hands. Some of the workup during his hospital visit consisted of: Lipid panel is triglyceride 122, cholesterol 134, LDLs 57 and HDL 61 Initial serum glucose is 127. Magnesium is 1.0. CT of the head is reported as moderate atrophy and chronic microvascular isc hemic white matter changes. No CT evidence for acute intracranial abnormality. CT angiography of the head and neck is reported as mild to moderate of the sclerotic calcification of bilateral carotid the bifurcation in the neck and siphons portions of the intracranial ICA without hemodynamic significant stenosis. No evidence of major arterial occlusion or aneurysm and the limits of CTA. Left vertebral is dominant. There is calcification of the P1 segment of the left vertebral artery with approximately 50% diameter stenosis. EKG is reported as atrial flutter/tachycardia. the ED team felt the patient has presumed cellulitis of the left upper extremity and placed him on IV antibiotic. Objective - Vital Signs Vital signs: Vital Signs Temp 97.5 F L 08/04/23 11:42 Pulse 66 08/04/23 11:42 Resp 17 08/04/23 11:42 BP 126/77 08/04/23 11:42 Pulse Ox 99 08/04/23 11:42 FiO2 Intake & Output 08/03/23 08/04/23 08/04/23 18:59 06:59 18:59 Intake Total 118 240 Output Total 325 Balance -207 240 Intake: Oral 118 240 Output: Urine 325 Other: Voiding Method External Catheter Toilet Toilet Urinal Urinal # Voids 1 1 2 - Exam Patient's mental status, speech and language functions are normal. Cranial nerves significant for mild left facial asymmetry, which probably is old. No Melisa's syndrome. On muscle strength testing, the strength is normal in the right arm and both legs. In the left upper extremity deltoid 5, triceps 5, brachioradialis 5, biceps 5, wrist extension 5-, finger extension 5, interossei 5-, finger flexion 5. Patient's thumb adduction, thumb flexion, are normal, some abduction has some giveaway weakness. No numbness to fine touch in the left upper extremity in any dermatomal or nerve distribution. Patient's left hand still appears swollen, but the pain has almost gone. He was able to participate in the examination. The left hand is still swollen, and slightly red. Reflexes are (right/left) biceps trace/2, brachioradialis trace/0, triceps 0/0, knee 2/0, ankles 0/0, and plantars are downgoing. Left wrist is very tender to any movement, and swollen. - Labs CBC & Chem 7: 08/04/23 11:20 08/04/23 11:20 Labs: Abnormal Lab Results - Last 24 Hours (Table) 08/03/23 08/03/23 08/04/23 Range/Units 16:24 20:58 11:20 RBC 3.99 L (4.30-5.90) m/uL Hgb 12.4 L (13.0-17.5) gm/dL Hct 37.1 L (39.0-53.0) % Plt Count 115 L (150-450) k/uL Carbon Dioxide (22-30) mmol/L Glucose (74-99) mg/dL POC Glucose (mg/dL) 137 H 136 H (70-110) mg/dL 08/04/23 08/04/23 Range/Units 11:20 11:27 RBC (4.30-5.90) m/uL Hgb (13.0-17.5) gm/dL Hct (39.0-53.0) % Plt Count (150-450) k/uL Carbon Dioxide 20 L (22-30) mmol/L Glucose 112 H (74-99) mg/dL POC Glucose (mg/dL) 128 H (70-110) mg/dL Microbiology - Last 24 Hours (Table) 08/01/23 20:20 Blood Culture - Preliminary Blood 08/01/23 19:55 Blood Culture - Preliminary Blood Assessment and Plan Assessment: this is a 73-year-old gentleman with history of atrial fibrillation on Xarelto as well as he is on aspirin at home presented because of the left upper extremity weakness and pain, that started on 07/31/2023. Patient does have mild left facial asymmetry, probably is old. No evidence of acute stroke on the MRI of the brain. Patient denies any neck pain, therefore radiculopathy appears unlikely. Patient's left hand pain and strength is remarkably improved and the strength is almost back to normal. Left hand swelling, redness, pain and high fever on admission probably suggest some infectious process/cellulitis, that is now better with clindamycin. History of atrial fibrillation on Xarelto as well as aspirin Diabetes mellitus Hypertension Hypercholesterolemia X tobacco use Plan: MRI of the brain with and without contrast revealed limited exam due to severe motion artifact demonstrates no definite diagnostic evidence of acute ischemia. Degenerative and nonspecifically white matter changes, most typical of remote ischemic white matter change. A component of normal pressure hydrocephalus in the differential diagnosis. On my review, there is no evidence of an acute stroke. There is at least moderate generalized cerebral atrophy. Some small vessel disease. No abnormal enhancement. 2-D echo revealed normal left ventricular size, mild global decrease in con tractility with estimated ejection fraction of 45-50% with mild to moderate TR and MR. Left atrial size is normal. Hemoglobin A1c 6.5 Patient was seen by vascular surgery. No evidence of arterial occlusion, or DVT. Patient's muscle strength has remarkably improved. The pain also has almost resolved. Uncertain as to the cause of acute left hand/forearm pain. No other neurological workup indicated. Vascular surgery on board for possible occlusion of the left ulnar artery. Patient being switched from Xarelto to Eliquis, per discussion with IM. Continue aspirin. No need for Plavix. Patient on Lipitor 80 mg daily at bedtime by the primary team CTA of the left upper limb revealed poor visualization of the distal ulnar artery near the wrist extending 70 mm. Further evaluation with ultrasound may be of benefit. Unclear whether there is some streak artifact in this region versus actual occlusion. Remainder of the arterial vasculature appears patent. Soft tissue edema around the hand and wrist. Ultrasound left upper limb revealed limited brachial indices due to patient's pain. Blood cultures are ordered so far negative. Patient is on clindamycin. Further treatment of possible cellulitis as per IM. For DVT prophylaxis the patient is on the Xarelto Neurologically clear for discharge.
[2023-08-04 16:10] VITALS: BP 138/88; PULSE 67; TEMP 97.6
[2023-08-04 16:18] LABS: Glucose,Whole Blood 147 mg/dL (70-110)
--- NOTE | 2023-08-04 20:24 | P.DS ---
Providers Date of admission: 08/01/23 20:47 Expected date of discharge: 08/04/23 Attending physician: Timothy Bay Consults: 08/01/23 20:48 Consult Physician Routine Consulting Provider: Kishor Mendoza Consult Reason/Comments: CVA Do you want consulting provider notified?: Yes 08/02/23 16:23 Consult Physician Urgent Consulting Provider: Shyanne Ruth Consult Reason/Comments: L.arm edema, pain Do you want consulting provider notified?: Yes 08/03/23 11:58 Consult Physician Routine Consulting Provider: Valente Ochoa Consult Reason/Comments: left hand/wrist pain swelling fever Do you want consulting provider notified?: Yes Primary care physician: [facility] Course: Patient is a 71-year-old male with a PMH of A. fib on Xarelto, hypertension, type II DM, hyperlipidemia who presents to the emergency room with complaints of left facial droop, left-sided weakness and left arm pain and swelling. History supplemented by the patient's at the bedside. Patient reports that he suddenly developed left upper and lower extremity weakness along with left facial droop yesterday evening along with gradually worsening left arm pain. He did not think much of it and upon waking up this morning, he noted not being able to grasp most items and severe pain of the left forearm overlying an area of redness and warmth. Patient denies injury to his left forearm. Does report some drooling from the left side of his mouth. Denied visual disturbances, headaches, chest discomfort, shortness of breath, cough, nausea, vomiting, abdominal pain, diarrhea. In the emergency room, the patient had a T-max of 101F. CT brain and CT angiogram head and neck were unremarkable. Chest x-ray was unremarkable. Left wrist x-ray was also unremarkable. EKG revealed a flutter at 93 bpm. Laboratory evaluation also revealed magnesium 1.0, INR 1.4, glucose 127. Case was discussed with neuro web applications architect and deemed to not be candidate for TPA due to its prolonged duration from onset ED documentation reviewed and case discussed with ED provider. 08/02/2023: I assumed care of this patient this afternoon. Patient presented 3 days of increasing pain in the left forearm. Low-grade fever. Weakness in the left arm. Denies any injury. Has tenderness. Has a radial pulse. Concern about DVT. Stat ultrasound both venous and arterial ordered. I called Dr. Ruth the vascular on-call surgeon. Consulted for the same. [Patient denies any change in speech, swallowing, headache,] patient has some trouble walking. The left leg because a friend left knee problem. Which is not weak otherwise. Discussed with patient's At the Bedside. Some swelling of the left wrist and hand. Patient was started on IV clindamycin in the ER for-possible left forearm cellulitis.. Note patient is already on Xarelto. Discussed with Dr. Ruth, nurse, the family. Total time spent about 1 hour with over 40 minutes of discussion. August 03: Still has some pain but decreased pain and tenderness in the left hand. Swelling still present. No evidence of DVT. CT angiogram of the left arm done. Vascular following. We'll consult orthopedics. MRI of the brain sh owing some motion artifact.-no Obvious evidence of acute ischemia. Also ordering an MRI with and without contrast of the left wrist hand. Patient is able to lift his arm and some weakness August 04: Pain and tenderness in the left hand much improved. Some swelling is there. Discussed with Dr. Lindquist from vascular. Patient has poor Doppler ultrasound on the ulnar artery and on the wrist. The blood supplies from the radial artery. Possible some occlusion of the ulnar artery and on the wrist. Probable element of cellulitis. Discussed with Dr. Almeida from neurology. No stroke. Given that patient has been on Xarelto will change after eliquis. Dose of aspirin increased to 81 mg twice a day. Patient follows with vascular outpatient. Questions answered. Patient is able to lift his hand well. Drip has significantly also improved. He will complete a short course of Keflex. Discussion and discharge planning more than 35 minutes On examination: VITAL SIGNS: 97.6, 67, 17, 1 38/98, 100% room air GENERAL APPEARANCE: Sitting up in chair, comfortable HEENT: Normal external appearance of nose and ear. Oral cavity normal EYES: Pupils equal. Conjunctiva normal. NECK: JVD not raised. Mass not palpable. RESPIRATORY: Respiratory effort normal. Lungs clear to auscultation. CARDIOVASCULAR: First and second sounds normal. No edema. ABDOMEN: Soft. Liver and spleen not palpable. No tenderness. No mass palpable. PSYCHIATRY: Alert and oriented x3. Mood and affect normal. MUSCULAR skeletal: Arthritic changes and left knee NEUROLOGICAL: Left arm weakness 4/5 Left upper extremity: Power 4/5. tenderness of the left forearm/wrist greatly improved. Swelling of the wrist and the hand-better INVESTIGATIONS, reviewed in the clinical context: 2-D echocardiogram: EF 45%. [id number] TR. August 04: White count 7.1 hemoglobin 12.4 potassium 4.9 creatinine 0.66 MRI of the brain with and without contrast: Limited exam due to severe which an artifact. No obvious evidence of acute ischemia. White matter changes. CT angiogram of her extremity left: Poor visualization of the distal ulna artery near the wrist extending 17 mm. Soft tissue edema around the hand and the wrist. Venous Doppler left arm: Negative for DVT August 02: CRP 16.5 CT brain, CT angiogram of the head and neck: Unremarkable EKG tracing: Atrial flutter 9 3 bpm Assessment plan: -Patient presents with 2-3 days of left arm pain and some swelling, or other tender. Also spiked a fever of 101.: Patient has tenderness around the wrist the left hand.: Possible cellulitis He followed by vascular . Patient received IV clindamycin. Cognitive short course of Keflex of 1 discharge -Stroke ruled out -Some distal blockage of ulnar artery in the left forearm. Change Xarelto to eliquis. Increase aspirin to 81 mg twice a day -Persistent atrial flutter fibrillation On eliquis. Lopressor. -BPH Proscar 5 mg a day. Ditropan XL. Amlodipine. Zestril -Hyperlipidemia Mevacor 40 mg daily at bedtime -Diabetes mellitus type 2, on oral hypoglycemic Metformin thousand milligrams twice a day 2 -Full code Disposition: Home Plan - Discharge Summary Discharge Rx Participant: No New Discharge Prescriptions: New Cephalexin [Keflex] 500 mg PO Q6HR #28 cap Apixaban [Eliquis] 5 mg PO BID #60 tab Famotidine [Pepcid] 20 mg PO BID #60 tab Continue Lovastatin [Mevacor] 40 mg PO HS Tamsulosin HCl [Flomax] 0.4 mg PO BID Finasteride [Proscar] 5 mg PO DAILY lisinopriL [Zestril] 30 mg PO DAILY metFORMIN HCL ER [Glucophage XR] 1,000 mg PO BID Metoprolol Tartrate [Lopressor] 25 mg PO BID Oxybutynin ER [Ditropan XL] 10 mg PO DAILY amLODIPine BESYLATE 5 mg PO DAILY HYDROcodone/APAP 7.5-325MG [[place] 7.5-325] 1 tab PO Q6H PRN PRN Reason: Pain Changed Aspirin 81 mg PO BID #0 Discontinued Rivaroxaban [Xarelto] 20 mg PO HS Discharge Medication List Lovastatin [Mevacor] 40 mg PO HS 12/15/14 [History] Finasteride [Proscar] 5 mg PO DAILY 11/12/21 [History] Oxybutynin ER [Ditropan XL] 10 mg PO DAILY 11/12/21 [History] Tamsulosin HCl [Flomax] 0.4 mg PO BID 11/12/21 [History] amLODIPine BESYLATE 5 mg PO DAILY 11/12/21 [History] lisinopriL [Zestril] 30 mg PO DAILY 12/05/21 [History] metFORMIN HCL ER [Glucophage XR] 1,000 mg PO BID 01/31/22 [History] HYDROcodone/APAP 7.5-325MG [[place] 7.5-325] 1 tab PO Q6H PRN 08/01/23 [History] Metoprolol Tartrate [Lopressor] 25 mg PO BID 08/01/23 [History] Apixaban [Eliquis] 5 mg PO BID #60 tab 08/04/23 [Rx] Aspirin 81 mg PO BID #0 08/04/23 [Rx] Cephalexin [Keflex] 500 mg PO Q6HR #28 cap 08/04/23 [Rx] Famotidine [Pepcid] 20 mg PO BID #60 tab 08/04/23 [Rx] Follow up Appointment(s)/Referral(s): Alfredo Lindquist DO [STAFF PHYSICIAN] - 1 Week Dylan Peguero MD [Primary Care Provider] - 1-2 days
[2023-08-04] MEDS: ATORVASTATIN 80 MG TAB PO SCH (20:59)
[2023-08-04] MEDS: RIVAROXABAN 20 MG TAB PO SCH (21:00)
--- NOTE | 2023-09-23 17:06 | CDI ---
Documentation Clarification Form Date: 09/23/2023 04:30:55 PM From: Ana Holt Phone: Admit Date: 08/01/2023 08:47:00 PM Pt. Name: Eris Cole Visit Number: [id number] Discharge Date: 08/04/2023 09:51:00 PM ATTENTION: The Clinical Documentation Specialists (CDI) and [facility] Coding Staff appreciate your assistance in clarifying documentation. Please respond to the clarification below the line at the bottom and electronically sign. The CDI & [facility] Coding staff will review the response and follow-up if needed. Please note: Queries are made part of the Legal Health Record. If you have any questions, please contact the author of this message via ITS. Dr. Timothy Bay The Pt. s principal diagnosis the diagnosis that was chiefly responsible for the admission - has not been clearly identified and clarification is requested. The Pt. presented with the following: onset between 6 and 7 PM last night with Lt facial droopand Ltupper extremity weakness. 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 No evidence ofmajorarterial occlusion, oraneurysmin the limits ofCTA. Lt vertebral is dominant. There iscalcificationof the V1 segment of the LVA with approximately 50% diameterstenosis. WristCMLT: Moderateosteoarthriticchange at the basal joint of the thumb, with slight lateralsubluxationof the base of the first metacarpal. Otherwise mild degenerative changes are seen. No evidence ofan acutefracturelucency or dislocation. Noabnormalwidening of the scapholunate interspace. Unremarkable soft tissues. Brain MRI- Limited exam due to severe motion artifact demonstratesno definite diagnostic evidence of acuteischemia. Degenerative and nonspecific white matter changes most typical of remote ischemicwhite matter change. A component ofnormal pressure hydrocephalusin the differential diagnosis. Treatment: Pt. undergoingMRIof the wrist. If no obvious answer identified, would suggest starting Solu-Medrol for possible brachial plexopathy. Pt. home medication of Xarelto was restarted and was started on Plavix 75 mg daily by the ED team. May resume aspirin. No need for Plavix. Pt. on Lipitor 80 mg daily at bedtime by the primary team CTAof the Lt upper limb revealed poor visualization of the distal ulnar artery near the wrist extending 70 mm. Furtherevaluationwithultrasoundmay be of benefit. Unclear whether there is some streak artifact in this region versusactualocclusion. Remainder of the arterial vasculature appears patent. Pt. presents with 2-3 days ofleft arm painand someswelling, or other tender.Also spiked afeverof 101.: Pt. has tenderness around the wrist the left hand.Possiblecellulitis He followed by vascular . Pt. received IV clindamycin. Cognitive short course of Keflex of 1 discharge Consults: Pt. was seen by vascular surgery. No evidence ofarterial occlusion, or DVT. In your professional opinion, can you please clarify which diagnosis, after study, was the reason chiefly responsible for the admission? [ ] Occlusion and stenosis of LVA [ ] Distalblockageof ulnar artery in the Lt forearm [ + ] Cellulitis of Lt forearm [ ] Other, please specify [ ] Unable to determine (Template Last Revised: November 2020) MTDD
== END 2023-08-04 21:51 | disposition home or self-care (01) | DRG 603 ==
LOC: SUPCPDRO 17:17 → EC 17:17 → 3SCARD 20:47
PROVIDERS: ADMIT Hospitalist; ATTEND Hospitalist
DX: L03.114 Cellulitis of left upper limb (principal); G81.94 Hemiplegia, unspecified affecting left nondominant side; I48.92 Unspecified atrial flutter; I48.19 Other persistent atrial fibrillation; I65.02 Occlusion and stenosis of left vertebral artery; E11.9 Type 2 diabetes mellitus without complications; I77.89 Other specified disorders of arteries and arterioles; I10 Essential (primary) hypertension; E83.42 Hypomagnesemia; E78.00 Pure hypercholesterolemia, unspecified; M79.89 Other specified soft tissue disorders; M17.12 Unilateral primary osteoarthritis, left knee; N40.0 Benign prostatic hyperplasia without lower urinary tract symptoms; M25.432 Effusion, left wrist; R29.810 Facial weakness; R26.2 Difficulty in walking, not elsewhere classified; R00.0 Tachycardia, unspecified; Z96.652 Presence of left artificial knee joint; Z87.891 Personal history of nicotine dependence; Z82.49 Family history of ischemic heart disease and other diseases of the circulatory system; Z79.01 Long term (current) use of anticoagulants; Z79.82 Long term (current) use of aspirin; Z79.84 Long term (current) use of oral hypoglycemic drugs; Z79.899 Other long term (current) drug therapy; Z88.0 Allergy status to penicillin
CPT/HCPCS: 36415; 70450; 70496; 70498; 70553; 71046; 80048; 80053; 80061; 82550; 83036; 83735; 84484; 85025; 85610; 85652; 85730; 86140; 87040; 87636; 93005; 93306; 93922; 94760; 96361; 96365; 96366; 96375; 96376; 99285

== ENCOUNTER → 2023-12-02 | Outpatient (CLI) | payer MEDICARE, OTHER ==
--- NOTE | 2023-12-03 15:23 | MR ---
EXAMINATION TYPE: MR cervical spine wo con DATE OF EXAM: 12/02/2023 COMPARISON: None HISTORY: 73-year-old male M48.12 Left arm weakness, diffuse idiopathic skeletal hyperostosis. TECHNIQUE: Multiplanar, multisequence images of the cervical spine were acquired without contrast. FINDINGS: No craniocervical junction abnormality, predental space widening, or prevertebral soft tissue swellin g. Moderate disc/endplate degenerative change especially C5-C7 levels with desiccated and narrowed disc disc osteophyte complexes. Additional ligamentum flavum thickening C5-C6. There is heterogeneous mixed Modic endplate changes including edematous Modic type I endplate change. Reversal of the normal cervical lordosis but with preserved alignment. At C5-C6, there is resultant moderate spinal canal stenosis with abutment and flattening of both the dorsal and ventral cord. On sagittal STIR sequence, possible minimal early bright fluid signal. With uncovertebral joint and facet arthropathy, possible severe bilateral neural foraminal stenosis. At C6-C7, broad-based disc osteophyte complex with uncovertebral joint and facet arthropathy contribu abhijeet to severe left and moderate right neuroforaminal stenosis. There is also moderate focal spinal ca nal stenosis with abutment of the ventral cord. At T7-T1, broad-based disc osteophyte complex with uncovertebral joint and facet arthropathy. Changes of moderate left and mild right neuroforaminal stenosis. Mild overall narrowing of the spinal canal. At C4-C5, facet and uncovertebral joint arthropathy with broad-based posterior disc bulge. Mild overa ll spinal canal stenosis with severe bilateral neural foraminal stenosis. At C3-C4, hypertrophic facet and uncovertebral joint arthropathy. At least moderate bilateral neurofo raminal stenoses. At C2-C3, mild facet arthropathy. Mild right neural foraminal narrowing. No spinal canal stenosis. No prevertebral or paravertebral soft tissue abnormality seen. Retropharyngeal course of the ICAs. IMPRESSION: 1. Moderate disc/endplate degenerative change especially C5-C7 levels. Along with ligamentum flavum t hickening at C5-C6, changes result in a focal moderate spinal canal stenosis with abutment and flatte dionisio of both the dorsal and ventral cord. AP canal dimension narrowed to 5.4 mm. Unable to exclude ea rly myelopathic cord signal change here. Clinically correlate. 2. Additional moderate spinal canal stenosis at C6-C7 with abutment of the ventral cord (AP canal dim ension narrowed to 6.4 mm) and mild spinal canal stenosis at additional levels. 3. 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 A [place] level critical message alert has been initiated for Paula Brady MD via the [facility] on 12/03/2023 3:20 PM. This message alert has been sent to Dony Walker via the preferences provided by the clinician for the receipt of Radiology Critical Findings. [employer] ID [id number].
== END | disposition home or self-care (01) ==
LOC: RADMRIMAIN 11:05
PROVIDERS: ATTEND Internal Medicine Rheumatology
DX: M47.812 Spondylosis without myelopathy or radiculopathy, cervical region (principal); M48.12 Ankylosing hyperostosis [Forestier], cervical region; M50.322 Other cervical disc degeneration at C5-C6 level; M50.323 Other cervical disc degeneration at C6-C7 level; M48.02 Spinal stenosis, cervical region; M99.71 Connective tissue and disc stenosis of intervertebral foramina of cervical region; M24.28 Disorder of ligament, vertebrae; R53.1 Weakness
CPT/HCPCS: 72141